=== PATIENT | female | born 1975 | race Caucasian/White ===

== ENCOUNTER 2023-04-19 08:37 | Day surgery (SDC) | payer MEDICAID, SELFPAY ==
--- NOTE | 2023-04-19 08:44 | MR_ITS ---
The [address] [address] Patient Name: AUGUSTINE PINA MRN: [id number] date: 1975 Sex: F Assigned Patient Location: MRI Current Patient Location: MRI Accession/Order Number: [id number] Exam Date: 04/19/2023 10:05 Report Date: 04/19/2023 17:34 At the request of: KEVIN CLINTON Procedure: MR arthrogram hip EXAM: MR arthrogram hip HISTORY: Left Hip Pain COMPARISON: None. TECHNIQUE: Multiplanar, multi sequential MRI sequences were performed following the intra-articular injection of a saline-gadolinium solution. FINDINGS: Contrast fills the hip joint. No visualized fracture, dislocation, subluxation or osseous lesion. The acetabular labrum or articular cartilage of the femoral head and acetabulum exhibit no chondral or osteochondral defect. On the large [id number]-[id number]-riea coronal imaging; the pubic symphysis, sacroiliac joints and right hip joint exhibit no discrete abnormality. No visualized deep pelvic abnormalities. The visualized superficial subcutaneous soft tissues are free of edema, hematoma, mass or cyst. No discrete muscle edema, hematoma, atrophy or fatty infiltration. No gross tendon thickening, tear or edema. No discrete bursal fluid collections. MR/MR arthrogram hip IMPRESSION: No visualized abnormality. Electronically authenticated by: ANU HOOK Date: 04/19/2023 17:34
--- NOTE | 2023-04-19 08:45 | FL_ITS ---
The [address] [address] Patient Name: AUGUSTINE PINA MRN: [id number] date: 1975 Sex: F Assigned Patient Location: MRI Current Patient Location: MRI Accession/Order Number: [id number] Exam Date: 04/19/2023 08:50 Report Date: 04/19/2023 11:23 At the request of: KEVIN CLINTON Procedure: FL arthrogram hip LT EXAMINATION: FL arthrogram hip LT HISTORY: Left Hip Pain COMPARISON: No relevant comparison available. TECHNIQUE: An arthrogram was performed under fluoroscopic guidance using non-ionic contrast material in the usual sterile manner after obtaining informed consent. Standard level fluoroscopic mode of operation utilized. FINDINGS: JOINT: Left hip NEEDLE: 25 gauge, 5.5 spinal needle. MEDICATION: 2cc buffered 1% lidocaine for subcutaneous anesthesia 2cc Omnipaque-240 iodinated contrast to visualize the joint space 40 mg Depo-Medrol and one mL, 3 mL's of 0.5% bupivacaine, 3 cc of sterile saline injected into the joint space. TECHNIQUE: Anterior approach with prior localization of the femoral artery. A single stick was successful in gaining access to the joint space. CLINICAL: The patient had 3 out of 4 pain before the procedure and after the procedure with no change COMPLICATIONS: None. BONES: Mild osteoarthritis with marginal osteophyte formation LOOSE BODIES: None. OTHER: Negative. FL/FL arthrogram hip LT IMPRESSION: Technically successful left hip therapeutic and diagnostic arthrogram Electronically authenticated by: ANU HUDSON Date: 04/19/2023 11:23
[2023-04-19] MEDS: TRIAMCINOLONE ACETONIDE 40 MG/ML VIAL INJ (09:35)
[2023-04-19] MEDS: LIDOCAINE HCL 15 ML, SODIUM BICARBONATE 2 MEQ INJ (09:35)
== END 2023-04-19 10:21 | disposition home or self-care (01) ==
LOC: MRI 08:38
PROVIDERS: Radiology Diagnostic Radiology; PCP Family Medicine; Visit Provider Personal Emergency Response Attendant
DX: M24.152 Other articular cartilage disorders, left hip (principal); M25.552 Pain in left hip
CPT/HCPCS: 27093; 73525; 73722; 77002; A9575; Q9967

== ENCOUNTER 2023-07-18 14:34 | Outpatient (OUT) | payer MEDICAID, SELFPAY ==
--- NOTE | 2023-07-18 | CONS_ITS ---
CONSULTATION DATE: 07/18/2023 TO: Laury Azar M.D. CHIEF COMPLAINT: Includes severe right sided neck pain. HISTORY OF PRESENT ILLNESS: Review of systems, past medical/surgical history were obtained and documented on the health questionnaire and is available upon request. She is a 47-year-old female, reports having had pain for many years. She reports that the pain has progressed to the point it altered her quality of life, level of functioning and at times her sleep pattern. She rates it presently at 5-7/10 pain, sharp in character, which increases with activities such as lifting maneuvers, pushing/pulling maneuvers and cervical extension. She feels most comfortable in the semi-recumbent position. Denies any change in bowel and bladder habits or new sensorimotor change in the lower extremities. She has been on ibuprofen for many years. She currently uses ibuprofen at least 400-600 mg q. 8-12 hours p.r.n., with only moderate reduction in pain symptoms, especially over the last six months. Originally, she had been placed on gabapentin 300 mg daily. She reports that this does improve her symptoms quite significantly, but she reports her pain is still quite severe, alters her quality of life, level of functioning and sleep pattern. EXAMINATION: Notable for patient having no clinical radiculopathy or myelopathy involving her upper extremities. She had severe pain with cervical facet loading maneuvers on the right side at approximately C2-3 and C3-4. It was difficult to evaluate which level it was, secondary to poor landmarks. She had a fair amount of myofascial spasm along the cervical paravertebral muscle as well. IMPRESSION: Our impression is patient with chronic pain secondary to cervical spondylosis, facet joint loading pain clinically. She has failed conservative therapy with nonsteroidal agents, most recently with the addition of gabapentin, and she currently has done physical therapy. Despite this, she still has persistent pain in the above mentioned areas. RECOMMENDATIONS: I recommend adding baclofen to her regimen, 10 mg pills, half a pill to one pill b.i.d. as tolerated. Proceed with a cervical spine film, PA and lateral views. We placed a skin marker over the most painful area. It appears to be at approximately the C2-C3 level. After reviewing the same, we will proceed with a diagnostic medial branch block, most likely at the C2-3 and C3-4 levels under fluoroscopy on the right side. As part of providing excellent, safe, comprehensive care, the following was completed at our patient's visit: 1. A medication reconciliation and review to ensure accurate knowledge of current/active medications, including asking our patients to inform us about any [id number]-zmc-[id number] medications or herbal remedies/nutritional supplements/alternative remedies. 2. A review to specifically ensure our patients have had annual screening for: elevated body mass index (BMI, see intake chart for exact total), tobacco use, screening for depression, and screening for unhealthy alcohol use. When screening is concerning, patients are provided with education and the specific recommendation to discuss the concerning health issue and treatment options with their primary care provider. MARIA ISABEL
== END 2023-07-18 14:35 | disposition home or self-care (01) ==
LOC: PM 14:35
PROVIDERS: PCP Family Medicine; Visit Provider Anesthesiology Pain Medicine
DX: M54.2 Cervicalgia (principal); M47.812 Spondylosis without myelopathy or radiculopathy, cervical region
CPT/HCPCS: 72050; G0463

== ENCOUNTER 2023-07-18 15:45 | Outpatient (OUT) | payer MEDICAID, SELFPAY ==
--- NOTE | 2023-07-18 16:04 | XR_ITS ---
The [place] [id number] Patient Name: AUGUSTINE PINA MRN: [id number] date: 1975 Sex: F Assigned Patient Location: [facility] Current Patient Location: Accession/Order Number: [id number] Exam Date: 07/18/2023 15:56 Report Date: 07/19/2023 07:16 At the request of: IMELDA QUINONES Procedure: XR cervical spine 5V EXAMINATION: XR cervical spine 5V HISTORY: Neck Pain COMPARISON: No relevant comparison available. FINDINGS: BONES: Mild widespread spondylosis and facet osteoarthritis. No visible acute bony abnormality. DISC SPACES: Normal. No significant disc height narrowing, subluxation, or endplate abnormality. PARASPINOUS: Negative. No paraspinous abnormality is seen. OTHER: BB marker indicates the C2 transverse process XR/XR cervical spine 5V IMPRESSION: Mild degenerative changes Electronically authenticated by: ANU HUDSON Date: 07/19/2023 07:16
== END 2023-07-18 15:46 | disposition home or self-care (01) ==
LOC: RAD 15:47
PROVIDERS: PCP Family Medicine; Visit Provider Anesthesiology Pain Medicine
DX: M54.2 Cervicalgia (principal)
CPT/HCPCS: 72050

== ENCOUNTER 2023-08-03 08:43 | Day surgery (SDC) | payer MEDICAID, SELFPAY ==
[2023-08-03 09:06] LABS: Glucometer 109 mg/dL (74-106)
[2023-08-03 09:10] VITALS: BP 153/96; PULSE 77; RESP 16; TEMP 36.7; O2SAT 96
[2023-08-03 09:50] VITALS: BP 142/84; PULSE 72; RESP 18; O2SAT 97
[2023-08-03 09:51] VITALS: BP 138/75; PULSE 74; RESP 18; O2SAT 97
[2023-08-03] MEDS: BUPIVACAINE HCL 0.25% PF 25 MG/10 ML VIAL 3 ML INJ (09:54)
--- OUTSIDE RECORDS SUMMARY | 2023-08-03 10:36 | XMS_ITS | CCD ---
Author Name Unknown Address [id number] [place] [address] Organization [facility] Care Team Providers Care Beef Ribber Name Role Phone LAURY AZAR Primary Care Unavailable CONNER DUVAL Admitting Unavailable CONNER DUVAL Attending Unavailable DHRUV PAZ Referring Unavailable SELF, REFERRED Primary Care Unavailable SELF, REFERRED Referring Unavailable CONNER DUVAL Admitting Unavailable CONNER DUVAL Attending Unavailable Sandoval Solano Unavailable Garcia Sanchez Unavailable MD Laury Azar Primary Care Provider MD Garcia Sanchez Attending Provider Garcia Sanchez Attending Unavailable Garcia Sanchez Admitting Unavailable Laury Azar Primary Care Unavailable Eleuterio Urbina DDS Attending Unavailable ANU WILKERSON Referring Unavailable NILOANU RONQUILLO Attending Unavailable NILOANU RONQUILLO Attending Unavailable KEVIN CLINTON Referring Unavailable CHUY, CONNER Attending Unavailable CONNOR WEBSTER Attending Unavailable LAURY AZAR Referring Unavailable CONNOR WEBSTER Attending Unavailable LAURY AZAR Referring Unavailable CHRIS WHITMORE Attending Unavailable CASANDRA, LAURY F Referring Unavailable CASANDRA LAURY F Attending Unavailable CASANDRA, LAURY F Referring Unavailable CHRIS WHITMORE Attending Unavailable CASANDRA, LAURY F Referring Unavailable Allergies Allergy Classification Reported Allergen(s) Allergy Type Date of Onset Reaction(s) Facility (2 sources) Vancomycin Drug Allergy [place] [employer] Other (1 source) Vancomycin Drug Allergy 11-03-19 [facility] Repository (1 source) Glycopeptides (Antibiotic); Translations: [VANCOMYCIN ANALOGUES] Propensity to adverse reactions to drug (disorder) 02-08-20 [facility] Repository Medications Current Medications Medication Drug Class(es) Dates Sig (Normalized) Sig (Original) acetaminophen 500 mg oral tablet (1 source) Start: 10-24-2018 take 2 tablets by mouth every six hours Acetaminophen (Tylenol Extra Strength) 500 mg Tablet Active 1000 MG PO Q6H October 24, 2018 12:00am Albuterol (2 sources) beta2-Adrenergic Agonist ProAir HFA Active Albuterol Sulfate (Proair Hfa) 90 mcg/actuation HFA aerosol inhaler (1 source) Start: 10-24-2018 Albuterol Sulfate (Proair Hfa) 90 mcg/actuation HFA aerosol inhaler Active 2 PUFF INHALATION As Directed October 24, 2018 12:00am breath-actuated 120 actuat beclomethasone dipropionate 0.08 mg/actuat metered dose inhaler (4 sources) Corticosteroid Start: 10-24-2018 take 1 puff(s) by inhalation twice daily Beclomethasone Dipropionate (Qvar Redihaler) 80 mcg/actuation HFA aerosol breath activated Active 1 PUFF INHALATION Twice daily October 24, 2018 12:00am Start: 10-24-2018 End: 10-24-2018 Beclomethasone Dipropionate (Qvar Redihaler) 80 mcg/actuation HFA aerosol breath activated Discontinued October 24, 2018 12:00am October 24, 2018 1:54pm Qvar 80 MCG Acti ve hydroCHLOROthiazide 25 mg oral tablet (3 sources) Thiazide Diuretic Start: 11-02-2022 take 25 mg by mouth once daily Hydrochlorothiazide Active 25 MG PO Daily November 02, 2022 12:00am take 1 tablet by pritesh th every twenty-four hours hydroCHLOROthiazide 25 MG 1 tablet in th e morning Orally Once a day Active losartan potassium 50 mg oral tablet (1 source) Angiotensin 2 Receptor Trudi Start: 11-02-2022 take 50 mg by mouth once daily Losartan Active 50 MG PO Daily November 02, 2022 12:00am losartin (2 sources) losartin 50 MG A ctive 1 ml medroxyPROGESTERone acetate 150 mg/ml prefilled syringe (3 sources) Progestin Start: 11-02-2022 Medroxyprogesterone Active 150 MG IM As Directed March 22nd, 2023 12:00am Depo-Provera Act gabrielle metFORMIN hydrochloride 500 mg oral tablet (1 source) Biguanide Start: 11-02-2022 take 500 mg by mouth once daily Metformin Active 500 MG PO Daily November 02, 2022 12:00am 24 hr propranolol hydrochloride 80 mg extended release oral capsule (1 source) beta-Adrenergic Trudi Start: 11-02-2022 take 80 mg by mouth once daily Propranolol Active 80 MG PO Daily November 02, 2022 12:00am valACYclovir 500 mg oral tablet (1 source) Herpesvirus Nucleoside Analog DNA Polymerase Inhibitor, Herpes Simplex Virus Nucleoside Analog DNA Polymerase Inhibitor, Herpes Zoster Virus Nucleoside Analog DNA Polymerase Inhibitor Start: 10-24-2018 take 1 tablet by mouth once daily Valacyclovir (Valtrex) 500 mg Tablet Active 500 MG PO Daily October 24, 2018 12:00am 24 hr venlafaxine 75 mg extended release oral capsule (3 sources) Serotonin and Norepinephrine Reuptake Inhibitor Start: 10-24-2018 take 1 capsule by mouth once daily Venlafaxine (Effexor Xr) 75 mg Capsule,Extended Release 24hr Active 75 MG PO Daily October 24, 2018 12:00am Effexor 75 MG QD Active Problems Problem Classification Problem Date Documented Date Episodic/Chronic Bacterial infection; unspecified site (3 sources) History of methicillin resistant Staphylococcus aureus infection; Translations: [Personal history of Methicillin resistant Staphylococcus aureus infection] Onset: 05-20-2021 Resolved: 05-20-2021 Episodic Osteoarthritis (3 sources) Arthritis of knee; Translations: [Unilateral primary osteoarthritis, unspecified knee] Onset: 05-20-2021 Resolved: 05-20-2021 Chronic Other connective tissue disease (2 sources) Psoas tendinitis, left hip; Translations: [Psoas tendinitis, left hip] Onset: 07-10-2023 Episodic Other non-traumatic joint disorders (2 sources) Pain in left hip; Translations: [Pain in left hip] Onset: 07-10-2023 Episodic Unclassified (1 source) Encounter for screening for malignant neoplasm of colon; Translations: [Encounter for screening for malignant neoplasm of colon] Onset: 11-02-2022 Results Test Name Value Interpretation Reference Range Facility 36on 07-24-2023 36 Lvm that pt does not need a prior auth. She just needs to schedule appt with Dr. Fuentes for injection Normal [facility] Follow-Upon 07-10-2023 Follow-Up [id number] Kellie Mann ie 1975 F Date Provider Department [place] 07/10/2023 ANU GOTTI MP ORTHO MPORTHO No family history on file Level of Service:57546 MO OFFICE/OUTPATIENT ESTABLISHED LOW MDM 20-29 MIN (GC) Reason for Visit and Comments: Pain [136] Normal [facility] XR CERVICAL SPINE 2-3 VIEWSo n 06-26-2023 XR CERVICAL SPINE 2-3 VIEWS CLINICAL HISTORY: neck pain COMPARISON: NONE. FINDINGS: There is no acute fracture or subluxation. There is no loss of vertebral body height. There is preservation of the lordotic curvature of the cervical spine. There is mild intervertebral disc space narrowing at each level. There are anterior osteophytes from C4-C7. The prevertebral tissues are unremarkable. The airway is patent IMPRESSION: There are no acute osseous changes. ELECTRONICALLY SIGNED BY: Luis Preciado MD Normal Not Available Office [place]iton 05-29-2023 Follow-up visit [id number] Kellie Mann 1975 F Date Provider Department [place] 05/29/2023 ANU GOTTI MP ORTHO MPORTHO No family history on file Level of Service:64700 MO OFFICE/OUTPATIENT ESTABLISHED MOD MDM 30-39 MIN (25,GC) Reason for Visit and Comments: Pain [136] Normal [facility] MRI Shoulder w/o Lefton 05-1 MRI Shoulder w/o Left HISTORY: Left shou lder pain. Recent lifting injury. TECHNIQUE: Routine non-contrast MRI of the shoulder , left side COMPARISON: Radiographs 12/07/2022. RESULT: Rotator Cuff Tendons: There appears to be full-thickness tearing involving majority of subscapularis, with possible few intact fibers, with slight medial retraction of the torn fibers, with underlying tendinosis. Mild to moderate tendinosis of supraspinatus and infraspinatus, without tear, with reactive cystic change at the infraspinatus insertion. Teres minor appears intact. Long Head Biceps Tendon: Medial subluxation with intra-articular tendinosis and/or partial tearing, without complete tear. Muscle: Muscle bulk and signal intensity are within normal limits. Labrum: Fraying/tearing, especially superiorly. Bones and Marrow: No evidence of fracture or bone marrow replacing process. Glenohumeral Joint: Osteophytes without measurable full-thickness chondral defect. No joint effusion. Acromioclavicular Joint: Mild degenerative changes. Other: No other significant abnormality. IMPRESSION: Full-thickness rotator cuff tearing involving subscapularis. Medial subluxation with intra-articular tendinosis and/or partial tearing of the long head biceps tendon, without complete tear. Report reported and signed by Stevie Holm on 12/26/2022 1544 Normal [facility] Specialist Glucose Glucometer (BldC) [M ass/Vol]Ordered By: Garcia Sanchez on 11-02-2022 Glucose [Mass/Vol] 104 mg/dL [facility] Comment on above: Random Glucose Refer ence Range is dependent on time and content of last meal. Glucose of more than 200 mg/dL in a nonstressed, ambulatory subject supports the diagnosis of Diabetes Mellitus. Glucose Poct Glucometerson 0 11-02-2022 Commemt1 Glu2: Cleaned Meter [facility] Comment on above: Result Comment: PERF ORMED BY: [facility] [address] [place] [address] PATHOLOGIST GASOLINE DRAGLINE OPERATOR VICENTE SINGH M.D. Performed By: #### G LULS #### Point of Care testing , Glucose [Mass/Vol] 104 mg/dL Normal [facility] Comment on above: Result Comment: [place] om Glucose Reference Range is dependent on time and content of last meal. Glucose of more than 200 mg/dL in a nonstressed, ambulatory subject supports the diagnosis of Diabetes Mellitus. Performed By: #### G LULS #### Point of Care testing , HCG ( test) IA.rapi d Ql (U)Ordered By: Garcia Sanchez on 11-02-2022 HCG ( test) Ql (U) Negative [facility] HCG,Urineon 11-02-2022 Beta HCG ( test) Ql (U) Negative Normal [facility] Comment on above: Result Comment: PERF ORMED BY: [facility] [address] [place] [address] PATHOLOGIST GASOLINE DRAGLINE OPERATOR VICENTE SINGH M.D. Performed By: #### U HCG #### [facility] [address] [id number] [facility] No Panel InformationOrdered By: Garcia Sanchez on 11-02-2022 Bedside Glucose Comment Glu2: cleaned meter [facility] Follow-Upon 09-14-2022 Follow-Up [id number] Kellie Mann ie 1975 F Date Provider Department Center 09/14/2022 CONNER SU MP ORTHO MPORTHO No family history on file Level of Service:57038 MO OFFICE/OUTPATIENT ESTABLISHED SF MDM 10-19 MIN Reason for Visit and Comments: Follow-up [213320] Normal [facility] Diagnostic Mammogram, Bilate ral w/Ananth (3D)on 07-12-2022 Diagnostic Mammogram, Bilateral w/Ananth (3D) COMPARISON: Dating back to July 05, 2022. TECHNIQUE: 2D and 3D Tomosynthesis of the right and left breasts was performed. FINDINGS: On these additional views no underlying nodule, mass, suspicious calcifications or distortion is seen. IMPRESSION: BI-RADS 3- Probably Benign. Short term interval follow up. Recommend follow up bilateral mammography in 6 months. Board Certified Radiologist. Accredited by the ACR and FDA. MAMMOGRAPHY IS VERY IMPORTANT TO YOUR HEALTH. THE CURRENT [employer] GUIDELINES RECOMMENDS ANNUAL MAMMOGRAPHY BEGINNING AT AGE 40 THIS FACILITY USES A REMINDER SYSTEM TO ENSURE ALL PATIENTS RECEIVE REMINDER NOTIFICATIONS AT THE APPROPRIATE TIME BASED ON THE RECOMMENDATIONS OF THIS EXAM. Report reported and signed by Juaquin Bullock on 07/12/2022 1546 Normal [facility] Specialist US Breast Limited, Lefton US Breast Limited, Left Please see right breast ultrasound report. Report reported and signed by Juaquin Bullock on 07/12/2022 1546 Normal [facility] SCREENING MAMMOGRAM W/ANANTH, BILATERAL*on 07-05-2022 SCREENING MAMMOGRAM W/ANANTH, BILATERAL* COMPARISON: November 03, 2020, November 05, 2018 TECHNIQUE: 2D and 3D Tomosynthesis of the right and left breasts was performed. FINDINGS: Breast composition demonstrates scattered fibroglandular densities. Each breast contains a new periareolar 6 mm asymmetry: Left breast MLO projection 4 cm from the nipple. Right breast CC projection outer periareolar region 4 cm from the nipple. No suspicious microcalcifications or distortion. No significant axillary lymphadenoapthy. IMPRESSION: BIRADS 0: Additional imaging evaluation needed. Recommend bilateral breast ultrasound periareolar regions, spot compression views CC and MLO projections if benign cyst formation does not account for these findings. COMMENT: Asymmetry: Visible on only one projection. Asymmetries that wood turner to be summation artifact are benign (BI-RADS 2). The BI-RADS [place] offers guidance regarding the other categories of asymmetries. Focal Asymmetry: Visible on two projections, involves less than one quadrant, lacks convex-outwards borders or is interspersed with fat. A solitary focal asymmetry (without architectural distortion, calcification, or underlying mass identified on diagnostic mammography and ultrasound) is assessed as BI-RADS 3 (likely benign). Developing Asymmetry: Focal asymmetry that is new, larger, or more conspicuous than on prior examinations. A developing asymmetry, unless shown to be characteristically benign such as a cyst on ultrasound, is assessed BI-RADS 4 (suspicious). An exception would be if there is a clear benign explanation, such as recent surgery, trauma, or infection at that site. Global Asymmetry: Visible on two projections, involves more than one quadrant. Global asymmetry, in the absence of palpable correlate, is assessed BI-RADS 2 (benign). Board Certified Radiologist. Accredited by the ACR and FDA. MAMMOGRAPHY IS VERY IMPORTANT TO YOUR HEALTH. THE CURRENT [employer] AND [employer]PREHENSIVE CANC[employer] NETWORK GUIDELINES RECOMMENDS ANNUAL MAMMOGRAPHY BEGINNING AT AGE 40 THIS FACILITY USES A REMINDER SYSTEM TO ENSURE ALL PATIENTS RECEIVE REMINDER NOTIFICATIONS AT THE APPROPRIATE TIME BASED ON THE RECOMMENDATIONS OF THIS EXAM. Report reported and signed by Juaquin Bullock on 07/05/2022 1525 Normal [facility] Multi Disciplined Language Analyst Operative Reporton 2 Operative Report MR#: [id number] S [facility] Pt. Name: Hilda Mann Room #: 0C Discharge Date: Birthdate: 1975 OPERATIVE REPORT DATE OF SURGERY: 12/16/2021 SURGEON: Conner Duval M.D. PREOPERATIVE DIAGNOSES: 1. Carpal tunnel syndrome, left hand. 2. Cubital tunnel syndrome, left elbow. POSTOPERATIVE DIAGNOSES: 1. Carpal tunnel syndrome, left hand. 2. Cubital tunnel syndrome, left elbow. PROCEDURES: 1. Carpal tunnel release, left hand. 2. Decompression of ulnar nerve, left elbow. LAMINATION SPINNER: Juan Quintanilla M.D. ANESTHESIA: General. INDICATION FOR SURGERY: The patient is a 46-year-old female, whom we saw in our [facility] with complaints of night pain and numbness in her left arm. Her examination and workup were consistent with that of both carpal and cubital tunnel syndromes. She is felt to be a candidate for surgical treatment because of persistent and worsening problems. She was brought to the operating room today for that purpose. The risks and benefits were explained prior to surgery, and with good understanding, it is agreed to proceed. NARRATION: The patient was brought to the operating room and placed on the table in the supine position. A regional anesthetic had been administered, but there was concerns that was not working adequately. So, a general anesthetic was induced. A tourniquet was placed around the proximal left arm. She was given preoperative antibiotics. The left upper extremity was prepped and draped out in a sterile fashion. To begin the procedure, after standard time-out, the arm was exsanguinated with an Esmarch bandage, and the tourniquet was inflated to 250 mmHg. We started with the carpal tunnel. A 2.5 cm incision was made on the palm between the thenar and hypothenar regions. Sharp dissection was carried out through the subcutaneous tissue. Superficial blood vessels were cauterized with the Bovie. Once that was done, the skin edges were retracted with 2 Roseanne rakes. The palmar fascia is split in line with our skin incision. That brought me down to the transverse carpal ligament. Where I could clearly see the ligament, it was opened up in a gradual fashion using a knife blade working from distal to proximal. Switching over to a tenotomy scissor, we bluntly spread through the most distal end of the ligament until that was completely free. The proximal end was undermined and split sharply with a scissors. I could use the tip of the scissors to palpate the release to make sure that it was complete. Once satisfied with that, the median nerve was bluntly dissected out. There was no gross abnormality. This wound was irrigated with normal saline solution, and the skin was closed with 5-0 Novafil suture. We then turned our attention to the elbow. The arm was abducted and externally rotated. The elbow was placed on a few blue towels to expose the medial aspect of the elbow. We started by making a curvilinear incision that was about 3.5 to 4 cm in length. This was right over the course of the ulnar nerve through the cubital tunnel. Blunt dissection was carried out through the subcutaneous tissue. Superficial blood vessels are cauterized with the Bovie once again. The ulnar nerve was palpable just above and behind the medial epicondyle. The nerve was exposed at that level. We then split the brachial fascia proximally as far as we safely could using an [employer]-Bridgman retractor to expose the proximal end and looked the proximal skin edge. The nerve was then released through the cubital tunnel releasing Magana's ligament and the fascia over the cubital tunnel. The nerve was free distally as the FCU fascias, both superficial and deep were split. Again, we used an [employer]-Bridgman retractor to lift the distal end of the skin to see better. Once the nerve was decompressed, we brought the arm to a full range of motion several times. The nerve was stable within the cubital groove. Seeing that the nerve was stable, we elected to leave it as a simple decompression. The wound was irrigated with normal saline solution, and the skin was closed with buried 3-0 Vicryl in the subcutaneous tissue and a running subcuticular 4-0 Biosyn. A sterile dressing of benzoin and Steri-Strips on the elbow, Xeroform gauze on the palm, 4 x 4 fluffs, Floridalma, and an Adal bandage was applied. The tourniquet was released, and the drapes were removed. She was awoken from anesthesia and extubated. Her arm was placed into a sling. She was brought to the recovery area in stable condition, having tolerated the procedure well. Electronically Signed by: Conner Duval M.D. 12/20/2021 08:57 A Conner Duval M.D. Date Dict: 12/16/2021/11:05 Magen/Conner Duval M.D. Date Trans: 12/16/2021 06:56 P/arvind [id number] cc: Laury Azar M.D. [facility] [address] Dhruv Paz, DO [address] P. OAnil Levy (more content not included)... Normal [facility] POC GLUCOSE LABon 12-16-2021 Glucose [Mass/Vol] 156 mg/dL High 70-100 [facility] Comment on above: Performed By: #### [id number] #### [facility] [address] [place] [address], [facility] POC URINE PREGNANCYon 2021 Beta HCG ( test) Ql (U) Negative Normal NEGATIVE [facility] Comment on above: Performed By: #### [id number] #### [facility] [address] [place] [address], [facility] Vital Signs Date Time Vital Sign Value Performing Clinician Facility 11-02-2022 09:58-0400 Diastolic blood pressure 102 mm[Hg] MD Laury Azar Work Phone: [facility] 11-02-2022 09:58-0400 Heart rate 71 /min MD Laury Azar Work Phone: [facility] 11-02-2022 09:58-0400 Respiratory rate 16 /min MD Laury Azar Work Phone: [facility] 11-02-2022 09:58-0400 SaO2% (BldA) [Mass fraction] 100 % MD Laury Azar Work Phone: [facility] 11-02-2022 09:58-0400 Systolic blood pressure 161 mm[Hg] MD Laury Azar Work Phone: [facility] 11-02-2022 08:27-0400 Body height 165.1 cm MD Laury Azar Work Phone: [facility] 11-02-2022 08:27-0400 Body weight 95.25 kg MD Laury Azar Work Phone: [facility] 05-20-2021 15:45-0400 Body height 165.1 cm Sandoval Solano Other [facility] Other 05-20-2021 15:45-0400 Body mass index (BMI) [Ratio] 38.94 kg/m2 Sandoval Solano Other [facility] Other 05-20-2021 15:45-0400 Body temperature 97.9 [degF] Sandoval Solano Other [facility] Other 05-20-2021 15:45-0400 Body weight 106.14 kg Sandoval Solano Other [facility] Other 05-20-2021 15:45-0400 Diastolic blood pressure 85 mm[Hg] Sandoval Solano Other [facility] Other 05-20-2021 15:45-0400 Systolic blood pressure 127 mm[Hg] Sanodval Solano Other [facility] Other Encounters Encounter Date Encounter Type Care Provider Facility Start: 07-27-2023 End: 07-27-2023 ambulatory CHRIS WHITMORE Not Available Start: 07-20-2023 End: 07-20-2023 ambulatory CHRIS WHITMORE Not Available Start: 07-18-2023 End: 07-18-2023 ambulatory CONNOR J ELEANOR Not Available Start: 07-14-2023 End: 07-14-2023 ambulatory CONNOR J ELEANOR Not Available Start: 07-10-2023 End: 07-10-2023 ambulatory ANU [facility] Start: 06-26-2023 End: 06-27-2023 ambulatory LAURY AZAR Not Available Start: 06-21-2023 End: 06-22-2023 ambulatory ANU [facility] Start: 05-29-2023 ambulatory ANU [facility] Start: 01-25-2023 ambulatory Eleuterio Urbina DDS [facility] Start: 11-02-2022 End: 11-02-2022 ambulatory Garcia Sanchez Facility:[facility] Start: 11-02-2022 End: 11-02-2022 Admission to same day surgery center MD Laury Azar Work Phone: [facility] Work Phone: Start: 11-02-2022 End: 11-02-2022 ambulatory MD Laury Azar Work Phone: [facility] Work Phone: Start: 09-14-2022 ambulatory CONNER DUVAL [facility] Start: 07-05-2022 End: 07-05-2022 ambulatory Garcia Sanchez Other [facility] Other Start: 07-05-2022 Telephone encounter Garcia CAPUTO G Lining Mechanic Start: 12-16-2021 End: 12-17-2021 ambulatory LAURY AZAR Facility:[facility] Start: 10-25-2021 End: 10-30-2021 ambulatory REFERRED SELF Facility:[facility] Start: 05-20-2021 Office outpatient vi sit 25 minutes Sandoval SILVA Infectious Disease Procedures Date Procedure Procedure Detail Performing Clinician Start: 11-02-2022 Colonoscopy MD Laury resendez Work Phone: Start: 09-14-2022 Follow-up visit Follow-up CONNER DUVAL Plan of Treatment Date Care Activity Detail Author Start: 11-02-2022 [facility] Payers Date Payer Category Payer Self-pay [id number] 2022 Medicaid [id number] 1975 Unknown [id number] 2.16.8 [id number] 1975 Unknown [id number] 2.16.8 [id number] 1975 Unknown [id number] 2.16.840 .[id number] 1975 Unknown [id number] 2.16.840 .[id number] 1975 Unknown [id number] 2.16.840 .[id number] 1975 Unknown [id number] 2.16.840 .[id number] 1975 Unknown [id number] 2.16.840 .[id number] 1975 Unknown [id number] 2.16.840 .[id number] Unknown [id number] Unknown [place] [id number] Unknown [id number] 2.16.8 [id number] Social History Date Type Detail Facility Unknown if ever smoked [facility] Other Sex Assigned At Sex Assigned [facility] Other Start: 11-02-2022 Tobacco smoking status NHIS Never smoked tobacco (finding) [facility] Start: 1975 Sex Assigned At Female F [facility] Goals Date Patient Goal Desired Activity /State Clinical Notes 05-20-2021 to 07-10-2023 Note Date & Type Note Facility 07-10-2023 Note Attestation signed by Anu Wilkerson MD at 07/10/2023 2:26 PM I personally saw and examined the patient on the same date of service as resident/fellow . I discussed the findings and therapeutic plan with the resident/fellow . I agree with the documentation, except for any edits/updates below. Teaching Physician's Revisions: No revisions Kaity only had 25% relief with the left hip psoas tendon injection. On my reading of the MRI, she has a labral tear. The radiologist disagrees. I would like to then perform a tie breaker with a diagnostic lidocaine injection. We will refer to Dr. Fuentes for this Subjective Chief complaint: Chief Complaint Patient presents with Left Hip - Pain 07/10/23 Patient states in the interim, the injection given to her left psoas tendon sheath at the last visit did not give significant movement, only 25% improvement that lasted less than 2 days. Patient continues have popping and clicking sensation in the left hip with pain localized to the groin worse with stairs and prolonged activity. This been a persistent issue for greater than 6 months. Prior MR arthrogram of the left hip was read by the radiologist to be negative, however on our independent review of the MR arthrogram, we did believe there was a labrum tear that is present. 05/29/23 Hilda Mann is a 47 y.o. year old female presenting for evaluation of left hip pain for approximately 6-10 months. Patient does not endorse traumatic onset of pain. Sensation of popping in the hip that is debilitating. Denies numbness, tingling, and weakness. Previous Treatments: physical therapy and arthrogram w injection Injection was initially not very helpful but over the next week provided some pain relief. ROS: Denies fevers, chills, and other constitutional symptoms. Denies shortness of breath. Patient History Past Surgical History: Procedure Laterality Date KNEE ARTHROPLASTY MR SHOULDER ARTHROGRAM RIGHT W FL GUIDED INJECTION Right 02/12/2018 MR SHOULDER ARTHROGRAM RIGHT W FL GUIDED INJECTION 02/12/2018 History reviewed. No pertinent past medical history. Objective General: There is no height or weight on file to calculate BMI. There were no vitals filed for this visit. No acute distress, comfortable Respiratory: Unlabored breathing with normal rate, no cough Cardiovascular: Warm well perfused extremities Psych: Appropriate mood behavior Left Hip: Inspection- no ecchymosis, no edema Tender to palpation over groin NTTP GT bursa (+) FADIR Hip ROM: Internal Rotation 30??? External Rotation 50??? Flexion 120??? Strength: Hip Flexion 5/5 Hip Extension 5/5 Hip Abduction 5/5 Hip Adduction 5/5 Knee Flexion 5/5 Knee Extension 5/5 Sensation: intact over superficial peroneal, deep peroneal and tibial nerve distributions Hip Special Tests: Log Roll - painful and FADIR - positive Pain w resisted hip flexion Imaging: MRI arthrogram L hip On our review of MRI we feel there is a labral tear Assessment/Plan Hilda Mann is a 47 y.o. year old female with Psoas tendinitis of left side Pain of left hip -Based on exam and our independent review of the MRI, we have concern for a labral tear that is causing patient persistent symptoms despite prior nonoperative management. Thus, we will send patient to Dr. Andrade for consideration of a LEFT hip intra-articular lidocaine injection under fluoroscopy for diagnostic purposes to confirm the pain is coming from the joint. -If her injection does relieve her pain, will need to proceed with a peer to peer to get insurance approval for a LEFT hip arthroscopy and labral repair. -RTC after injection done to see how patient is doing. Francis Allen MD Orthopaedic Surgery, PGY-V 07/10/2023 By using the attestations below, the signing clinician agrees that I have read and verify that the documentation has been personally reviewed by me and ensure that the documentation accurately reflects the encounter. GC: I personally saw this patient on the day of the encounter, performed the joiner portion(s) of the service and participated in the management and confirm the resident's documentation. Please note there may be an additional personal documentation from me. [facility] 05-29-2023 Note Attestation signed by Anu Wilkerson MD at 05/29/2023 1:52 PM I personally saw and examined the patient on the same date of service as resident/fellow . I discussed the findings and therapeutic plan with the resident/fellow . I agree with the documentation, except for any edits/updates below. Teaching Physician's Revisions: No revisions Kaity has signs and symptoms of left hip psoas tendinitis. My recommendation would be for corticosteroids and physical therapy for 6 weeks. I will see her back in 6 weeks time for repeat evaluation. Of note I reviewed her MRI of the left hip and disagree with the radiologist. I do think she has an acetabular labral tear. She also had a diagnostic injection which gave her 2 weeks of relief. That said I still want to see if we can get her better with the psoas tendon and turn her hip from a to problem hip 201 problem hip. It may be that once her psoas tendinitis resolves then her labral tear might not be symptomatic enough for surgery by itself. I will see in 6 weeks time Subjective Chief complaint: Chief Complaint Patient presents with Left Hip - Pain 05/29/23 Hilda Mann is a 47 y.o. year old female presenting for evaluation of left hip pain for approximately 6-10 months. Patient does not endorse traumatic onset of pain. Sensation of popping in the hip that is debilitating. Denies numbness, tingling, and weakness. Previous Treatments: physical therapy and arthrogram w injection Injection was initially not very helpful but over the next week provided some pain relief. ROS: Denies fevers, chills, and other constitutional symptoms. Denies shortness of breath. Patient History Past Surgical History: Procedure Laterality Date KNEE ARTHROPLASTY MR SHOULDER ARTHROGRAM RIGHT W FL GUIDED INJECTION Right 02/12/2018 MR SHOULDER ARTHROGRAM RIGHT W FL GUIDED INJECTION 02/12/2018 History reviewed. No pertinent past medical history. Objective General: There is no height or weight on file to calculate BMI. There were no vitals filed for this visit. No acute distress, comfortable Respiratory: Unlabored breathing with normal rate, no cough Cardiovascular: Warm well perfused extremities Psych: Appropriate mood behavior Left Hip: Inspection- no ecchymosis, no edema Tender to palpation over groin NTTP GT bursa Hip ROM: Internal Rotation 30??? External Rotation 50??? Flexion 120??? Strength: Hip Flexion 5/5 Hip Extension 5/5 Hip Abduction 5/5 Hip Adduction 5/5 Knee Flexion 5/5 Knee Extension 5/5 Sensation: intact over superficial peroneal, deep peroneal and tibial nerve distributions Hip Special Tests: Log Roll - not painful, NORBERTO - positive, and FADIR - negative Pain w resisted hip flexion Imaging: MRI arthrogram L hip On our review of MRI we feel there is a labral tear Assessment/Plan Hilda Mann is a 47 y.o. year old female with Psoas tendinitis of left side Pain of left hip Discussed the nature of the disease as well as treatment options including conservative vs surgical interventions Conservative interventions including: physical therapy, NSAIDs, activity modification, steroid injections Surgical interventions including: arthroscopic repair or reconstruction of affected structures -CSI today into psoas tendon -PT -Return to clinic in 6 weeks -Will discuss surgery if not improved for labral repair Joseph Campoverde MD PGY-[address] [facility] By using the attestations below, the signing clinician agrees that I have read and verify that the documentation has been personally reviewed by me and ensure that the documentation accurately reflects the encounter. GC: I personally saw this patient on the day of the encounter, performed the joiner portion(s) of the service and participated in the management and confirm the resident's documentation. Please note there may be an additional personal documentation from me. [facility] 05-29-2023 Note Subjective Chief complaint: Chief Complaint Patient presents with ??? Left Hip - Pain 05/29/23 Hilda Mann is a 47 y.o. year old female presenting for evaluation of left hip pain for approximately 6-10 months. Patient does not endorse traumatic onset of pain. Sensation of popping in the hip that is debilitating. Denies numbness, tingling, and weakness. Previous Treatments: physical therapy and arthrogram w injection Injection was initially not very helpful but over the next week provided some pain relief. ROS: Denies fevers, chills, and other constitutional symptoms. Denies shortness of breath. Patient History Past Surgical History: Procedure Laterality Date ??? KNEE ARTHROPLASTY ??? MR SHOULDER ARTHROGRAM RIGHT W FL GUIDED INJECTION Right 02/12/2018 MR SHOULDER ARTHROGRAM RIGHT W FL GUIDED INJECTION 02/12/2018 History reviewed. No pertinent past medical history. Objective General: There is no height or weight on file to calculate BMI. There were no vitals filed for this visit. No acute distress, comfortable Respiratory: Unlabored breathing with normal rate, no cough Cardiovascular: Warm well perfused extremities Psych: Appropriate mood behavior Left Hip: Inspection- no ecchymosis, no edema Tender to palpation over groin NTTP GT bursa Hip ROM: Internal Rotation 30??? External Rotation 50??? Flexion 120??? Strength: Hip Flexion 5/5 Hip Extension 5/5 Hip Abduction 5/5 Hip Adduction 5/5 Knee Flexion 5/5 Knee Extension 5/5 Sensation: intact over superficial peroneal, deep peroneal and tibial nerve distributions Hip Special Tests: Log Roll - not painful, NORBERTO - positive, and FADIR - negative Pain w resisted hip flexion Imaging: MRI arthrogram L hip On our review of MRI we feel there is a labral tear Assessment/Plan Hilda Mann is a 47 y.o. year old female with Psoas tendinitis of left side Pain of left hip Discussed the nature of the disease as well as treatment options including conservative vs surgical interventions Conservative interventions including: physical therapy, NSAIDs, activity modification, steroid injections Surgical interventions including: arthroscopic repair or reconstruction of affected structures -CSI today into psoas tendon -PT -Return to clinic in 6 weeks -Will discuss surgery if not improved for labral repair Joseph Campoverde MD PGY-[address] Orthopedic [address] [facility] By using the attestations below, the signing clinician agrees that I have read and verify that the documentation has been personally reviewed by me and ensure that the documentation accurately reflects the encounter. GC: I personally saw this patient on the day of the encounter, performed the joiner portion(s) of the service and participated in the management and confirm the resident's documentation. Please note there may be an additional personal documentation from me. Large Joint: L iliopsoas bursa on 05/29/2023 1:52 PM Indications: pain Details: 21 G needle, anterior approach Medications: 4 mL lidocaine 10 mg/mL (1 %); 20 mg triamcinolone acetonide 10 mg/mL Procedure, treatment alternatives, risks and benefits explained, specific risks discussed. Consent was given by the patient. Patient was prepped and draped in the usual sterile fashion. [facility] 11-02-2022 Procedure note [facility] 09-14-2022 Note Orthopedic Surgery Subjective Follow-up of the Left Hand 09/14/22 Hilda Mann is a 46 y.o. female presenting to the clinic for 8 month follow up of left carpal tunnel and cubital tunnel release surgery. At last visit, her symptoms were slowly improving Today she reports continuous, albeit slow, improvement of her cubital tunnel symptoms. She is now able to wash dishes and completely adduct her fingers. Review of Systems unremarkable aside from what is noted in HPI Patient History Past Surgical History: Procedure Laterality Date KNEE ARTHROPLASTY No past medical history on file. Objective General: There is no height or weight on file to calculate BMI. No acute distress, comfortable Respiratory: Unlabored breathing with normal rate, no cough Cardiovascular: Warm well perfused extremities Psych: Appropriate mood behavior Physical Exam: Left Hand: Incision well healed. No erythema, swelling, or deformity. Decreased sensation along the small finger and ring finger when compared to the right. Sensation intact in the thumb, index, and long finger. Cubital tunnel tinel's sign positive. Assessment/Plan Hilda Mann is a 46 y.o. year old female presenting to the clinic today for 8 month follow up after carpal tunnel and cubital tunnel release surgery. Her carpal tunnel symptoms have resolved. She is showing slow and continuous improvement of her cubital tunnel symptoms. Plan Follow up as needed. Velasquez Frost, MS4 As the teaching physician, I have personally performed or re-performed the history of present illness, physical exam and medical decision-making activities of the encounter and verified the medical student's documentation. I made pertinent changes as necessary to ensure accurate documentation. Additional Comments: She continues to improve and is back to normal daily activities. We will see her back as needed. [facility] 07-12-2022 Note FINDINGS: Sonographic evaluation of both breasts demonstrates no worrisome cystic or solid mass lesions. Reference is made to the same day mammogram and recent mammogram of July 05, 2022. IMPRESSION: BI-RADS 3- Probably Benign. Short term interval follow up. Recommend follow up bilateral mammography in 6 months. Report reported and signed by Juaquin Bullock on 07/12/2022 1545 [facility] [employer] Language [employer]st 05-20-2021 Evaluation note Encounter Date Diagnosis Assessment Notes May, History of MRSA infection (ICD-10 - Z86.14) May, Arthritis of knee (ICD-10 - M17.10) [facility] Other Evaluation noteNo assessment information available [facility] Work Phone: History and physical note Author Garcia Sanchez [facility] November 02, 2022 9:14am Note Date/Time November 02, 2022 9:1 4am [facility] [address] [place] [address] Gastroenterology H&P Signed Patient: Hilda Mann MR#: [id number] : 1975 Acct:[id number] Age/Sex: 47 / F Adm Date: 3 Loc: Room: Type: [facility] Attending Dr: Garcia Sanchez MD Copies to: MD Laury Benavides MD~ Date of Service: 11/02/2022 HISTORY & PHYSICAL: Patient's history with special attention to the cardiovascular, pulmonary systems and the current problem was reviewed with the patient immediately prior to the procedure. Present medications and doses reviewed in the EMR. Allergies and pertinent laboratory tests were also reviewedat this time in the EMR. The physical examination, as below, was then performed. Indication, assessment and HPI: 47-year-old female presents for surveillance colonoscopy, history of colon polyp Family history of GI malignancy? Mother and maternal grandmother with a historyof colorectal cancer PHYSICAL EXAMINATION Mouth and Pharynx : Moist mucus membranes, normal dentition Cardiac: Regular rate, regular rhythm Pulmonary: Clear to auscultation bilaterally, no wheezing Neurological: Alert and oriented x3, no focal deficits noted Abdomen: Abdomen soft, non-tender REVIEW OF SYSTEMS Constitutional: Denies malaise, fevers Cardiovascular: Denies chest pain, palpitations Respiratory: Denies shortness of breath, wheezing Gastrointestinal: Per HPI Genitourinary: Denies dysuria, polyuria Musculoskeletal: Denies joint swelling, joint stiffness Neurological: Denies numbness, tingling Integumentary: Denies rashes, skin lesions Endocrine: Denies fatigue, weight loss Written informed consent obtained from the patient. Risks (including but not limited to perforation, infection, bloating, bleeding, need for emergent surgeryand loss of life), benefits and alternatives explained and questions answered. The patient verbalized understanding. Based on history patient is an appropriate candidate for the procedure. Garcia Sanchez MD Documented By: Garcia Sanchez MD 11/02/22913 Signed By: <Electronically signed by Garcia Sanchez MD> 11/02/22913 [facility] Work Phone: History general Narrative - Reported* Type Description Date Medical History MRSA Medical History HTN Surgical History BILATERAL KNEES Surgical History C SECTION Surgical History BILATERAL FEET Surgical History R [facility] Other Hospital Discharge instructions Additional Instructions DISCHARGE INSTRUCTIONS FOR COLONOSCOPY WHAT TO EXPECT: - You may feel full, gassy or cramping after your procedure. In some cases, this may be from a few hours to a day. Walking may help relieve the discomfort. - If you have polyp(s) removed you may note some minor bloody discharge after your first bowel movements. - You should begin to recover from anesthesia within 1 hour of the procedure, however may feel groggy for the next 24 hours. DO's AND DON'Ts: - Call your doctor right away if you have a hard abdomen, severe pain, are passing lots of bright red blood or clots. - Call your doctor if you develop any rashes, hives or difficulty breathing. - Let your doctor know if you have not had a bowel movement by 3 days after your procedure. - If you take 81 mg aspirin for your heart it is safe to resume this medication. - If you take other blood thinner medications your doctor will instruct you when these can safely be resumed. - Do NOT drive for 24 hours. - Do NOT operate machinery such as power tools, lawn mowers, snow blowers, sewing machines, etc. for 24 hours. - Avoid alcoholic beverages and drugs for allergies, nerves, or sleep. - Do NOT stay alone. Do NOT leave your child unattended. - Do NOT make important personal or business decisions or sign any legal documents. - Eat solid foods and drink liquids in smaller amounts than usual until normal appetite returns. If you should experience an upset stomach, liquids high in sugar content (soda, Alverto-Aid, non-acid juices) are recommended. - You can resume normal activities tomorrow. FOLLOW UP & RECOMMENDATIONS: -Follow-up with Dr. Sanchez as needed -Notify the doctor if you have any problems. -Repeat colonoscopy in 5 years because of your family history. You should never go longer than 5 years without a colonoscopy. -Follow up with PCP. -Office number [phone].[facility] Work Phone: Summary Purpose Family History No Family History Records Found Relationship Condition Age at Onset Recorded Date/T giacomo Not Specified Malignant neoplasm of uterus Unknown Malignant neoplasm of colon Unknown Malignant neoplasm of throat Unknown grandparent Malignant neoplasm of uterus Unknown Advance Directives No Advanced Directives Records Found Advance Directive Response Recorded Date/ Time Advance Directives No October 24, 2 019 12:54pm Chief Complaint and Reason for Visit Chief Complaint Polyp of Colon Additional Source Comments INFORMATION SOURCE (unrecogn ized section and content) DATE CREATED AUTHOR 12/22/2021 [facility] DATE CREATED AUTHOR AUTHOR'S ORGANIZ ATION 11/11/2022 [facility] DATE CREATED AUTHOR AUTHOR'S ORGANIZ ATION 12/27/2022 [facility] dical Specialist DATE CREATED AUTHOR AUTHOR'S ORGANIZ ATION 03/18/2023 [facility] DATE CREATED AUTHOR AUTHOR'S ORGANIZ ATION 07/26/2023 [facility] DATE CREATED AUTHOR AUTHOR'S ORGANIZ ATION 07/29/2023 [facility] dical Specialists EPIC REASON FOR VISIT (unrecogniz ed section and content) NEW CONSULT, HX OF MRSA, L T KA NEEDS PRE -OP CLEARANCEMAIL PPW Care Teams (unrecognized sec tion and content) Team Status: Active Member Role Status Dates Laury Azar MD Primary Care Provider Active Team Status: Inactive Member Role Status Dates Laury Azar MD Primary Care Provider Active Garcia Sanchez MD Attending Provider Active FOR RECORDS PERTAINING TO PATIENTS WHO ARE OR HAVE BEEN ENROLLED IN A CHEMICAL DEPENDENCY/SUBSTANCEABUSE PROGRAM, SOME INFORMATION MAY BE OMITTED. This clinical summary was aggregated from multiple sources. Caution should be exercised in using it in the provision of clinical care. This summary normalizes information from multiple sources, and as a consequence, information in this document may materially change the coding, format and clinical context of patient data. In addition, data may be omitted in some cases. CLINICAL DECISIONS SHOULD BE BASED ON THE PRIMARY CLINICAL RECORDS. [facility] [employer] provides no warranty or guarantee of the accuracy or completeness of information in this document.
--- NOTE | 2023-08-03 10:39 | P.ON_ITS ---
Date of procedure: 08/03/23 Pre-op diagnosis: Cervical spondylosis Post-op diagnosis: same as pre-op Procedure: Right cervical 2-3, 3-4 medial branch block Under fluoroscopic guidance Solution injected: 3milliliters Marcaine 0.25% Anesthesia :none Immediate complications none Time out process compliant After informed consent obtained from the patient placed in the Prone proposition. area was prepped and draped in a sterile fashion using betadine .25 gauge spinal needle inserted over each of the above mentioned target areas . [place] were directed towards the target under fluoroscopic guidance . after encountering each of the targets , no indication of intravascular intraneuronal or intrathecal needle tip placement. Then 0 .5 to 1 Milliliter was injected at each level. [place] removed postoperatively. patient transferred to recovery in stable condition to be discharged home after meeting criteria Anesthesia: Local Condition: stable
== END 2023-08-03 10:00 | disposition home or self-care (01) ==
LOC: SURGOUT 08:44
PROVIDERS: PCP Family Medicine; Visit Provider Anesthesiology Pain Medicine
DX: M47.812 Spondylosis without myelopathy or radiculopathy, cervical region (principal)
CPT/HCPCS: 36415; 64490; 64491; 82948

== ENCOUNTER 2023-08-17 09:59 | Outpatient (OUT) | payer MEDICAID, SELFPAY ==
--- OUTSIDE RECORDS SUMMARY | 2023-08-17 10:07 | XMS_ITS | CCD ---
Author Name Unknown Address [address] [place] [address] Organization [facility] Care Team Providers [employer] Name Role Phone LAURY AZAR Primary Care Unavailable CONNER DUVAL Admitting Unavailable CONNER DUVAL Attending Unavailable DHRUV PAZ Referring Unavailable SELF, REFERRED Primary Care Unavailable SELF, REFERRED Referring Unavailable CONNER DUVAL Admitting Unavailable CONNER DUVAL Attending Unavailable Sandoval Sloano Unavailable Garcia Sanchez Unavailable MD Laury Azar Primary Care Provider MD Garcia Sanchez Attending Provider Garcia Sanchez Attending Unavailable Garcia Sanchez Admitting Unavailable Laury Azar Primary Care Unavailable Eleuterio Urbina DDS Attending Unavailable CONNOR WEBSTER Attending Unavailable CASANDRA, LAURY F Referring Unavailable ELEANORCONNOR VO Attending Unavailable CASANDRA, LAURY F Referring Unavailable WHITMORECHRIS Attending Unavailable CASANDRA, LAURY F Referring Unavailable CASANDRA, LAURY F Attending Unavailable CASANDRA, LAURY F Referring Unavailable WHITMORECHRIS Attending Unavailable CASANDRA, LAURY F Referring Unavailable ELEANORCONNOR VO Attending Unavailable CASANDRA, LAURY F Referring Unavailable WHITMORECHRIS Attending Unavailable CASANDRA, LAURY F Referring Unavailable NILOANU Referring Unavailable NILO, ANU Attending Unavailable NILO, ANU Attending Unavailable KEVIN CLINTON Referring Unavailable SKICONNER Ferrari Attending Unavailable Allergies Allergy Classification Reported Allergen(s) Allergy Type Date of Onset Reaction(s) Facility (2 sources) Vancomycin Drug Allergy [facility] Other (1 source) Vancomycin Drug Allergy 11-03-19 [facility] Repository (1 source) Glycopeptides (Antibiotic); Translations: [VANCOMYCIN ANALOGUES] Propensity to adverse reactions to drug (disorder) 02-08-20 [facility] Repository Medications Current Medications Medication Drug Class(es) [...] Medroxyprogesterone Active 150 MG IM As Directed November 02, 2022 12:00am Depo-Provera Act gabrielle metFORMIN hydrochloride 500 [...] Test Name Value Interpretation Reference Range Facility 36 08-15-2023 36 Called patient to reschedule her appt. Due to being out of office. Offered patient 08/18/2023 Normal [facility] 36on 07-24-2023 36 Lvm that pt does not need a prior auth. She just needs to schedule appt with Dr. Fuentes for injection Normal [facility] Follow-Upon 07-10-2023 Follow-Up [id number] Kellie Mann 1975 F Date Provider Department [place] 07/10/2023 ANU GOTTI MP ORTHO MPORTHO No family history on file Level of Service:87098 DC OFFICE/OUTPATIENT ESTABLISHED LOW MDM 20-29 MIN (GC) Reason for Visit and Comments: Pain [136] Normal [facility] XR CERVICAL SPINE 2-3 VIEWSo n 06-26-2023 [...] Not Available Office Visiton 05-29-2023 Follow-up visit [id number] Kellie Mann 1975 F Date Provider Department [place] 05/29/2023 ANU GOTTI MP ORTHO MPORTHO No family history on file Level of Service:37995 DC OFFICE/OUTPATIENT ESTABLISHED MOD MDM 30-39 MIN (25,GC) Reason for Visit and Comments: Pain [136] Normal [facility] MRI Shoulder w/o Lefton 05 MRI Shoulder w/o Left HISTORY: Left shou [...] [place] on 12/26/2022 1544 Normal [facility] Glucose Glucometer (BldC) [M ass/Vol]Ordered By: Garcia Sanchez on 11-02-2022 Glucose [Mass/Vol] 104 mg/dL [facility] Comment on above: Random Glucose Refer ence Range is dependent on time and content of last meal. Glucose of more than 200 mg/dL in a nonstressed, ambulatory subject supports the diagnosis of Diabetes Mellitus. Glucose Poct Glucometerson 0 11-02-2022 Commemt1 Glu2: Cleaned Meter Normal [facility] Comment on above: Result Comment: PERF ORMED BY: [facility] [address] [place] [address] PATHOLOGIST ANODIZER VICENTE SINGH M.D. Performed By: #### G LULS #### Point of Care testing , Glucose [Mass/Vol] 104 mg/dL Normal [facility] Comment on above: Result Comment: [place] Glucose Reference Range is dependent on time and content of last meal. Glucose of more than 200 mg/dL in a nonstressed, ambulatory subject supports the diagnosis of Diabetes Mellitus. Performed By: #### G LULS #### Point of Care testing , HCG ( test) IA.rapi d Ql (U)Ordered By: Garcia Sanchez on 11-02-2022 HCG ( test) Ql (U) Negative [facility] HCG,Urineon 11-02-2022 Beta HCG ( test) Ql (U) Negative Normal [facility] Comment on above: Result Comment: PERF ORMED BY: [facility] [address] [facility]. [place] [id number] PATHOLOGIST ANODIZER VICENTE SINGH M.D. Performed By: #### U HCG #### [facility] [address] No Panel InformationOrdered By: Garcia Sanchez on 11-02-2022 Bedside Glucose Comment Glu2: cleaned meter [facility] Follow-Upon 09-14-2022 Follow-Up [id number] Kellie Mann 1975 F Date Provider Department Center 09/14/2022 CONNER SU MP ORTHO MPORTHO No family history on file Level of Service:42722 DC OFFICE/OUTPATIENT ESTABLISHED MDM 10-19 MIN Reason for Visit and Comments: Follow-up [[id number]] Normal [facility] Diagnostic Mammogram, Bilate ral w/Ananth (3D)on 07-12-2022 [...] VERY IMPORTANT TO YOUR HEALTH. THE CURRENT [employer] GUIDELINES RECOMMENDS ANNUAL MAMMOGRAPHY BEGINNING AT AGE 38 THIS FACILITY USES A REMINDER SYSTEM TO ENSURE ALL PATIENTS RECEIVE REMINDER NOTIFICATIONS AT THE APPROPRIATE TIME BASED ON THE RECOMMENDATIONS OF THIS EXAM. Report reported and signed by Juaquin Bullock on 07/12/2022 1546 Normal [facility] Centrifugal Chiller Technician US Breast Limited, Lefton US Breast Limited, Left Please see right breast ultrasound report. Report reported and signed by Juaquin Bullock on 07/12/2022 1546 Normal [facility] SCREENING MAMMOGRAM W/ANANTH, BILATERAL*on 07-05-2022 SCREENING [...] Visible on only one projection. Asymmetries that box turner to be summation artifact are benign (BI-RADS 2). The BI-RADS [place] offers guidance regarding the other categories of [...] VERY IMPORTANT TO YOUR HEALTH. THE CURRENT [employer] GUIDELINES RECOMMENDS ANNUAL MAMMOGRAPHY BEGINNING AT AGE 38 THIS FACILITY USES A REMINDER SYSTEM TO ENSURE ALL PATIENTS RECEIVE REMINDER NOTIFICATIONS AT THE APPROPRIATE TIME BASED ON THE RECOMMENDATIONS OF THIS EXAM. Report reported and signed by Juaquin Bullock on 07/05/2022 1525 Normal [facility] Centrifugal Chiller Technician Operative Reporton 2 Operative Report MR#: [id number] S [facility] Pt. Name: Hilda Mann Room #: 0C Discharge Date: Birthdate: 1975 OPERATIVE REPORT DATE OF SURGERY: 12/16/2021 SURGEON: Conner Duval M.D. PREOPERATIVE DIAGNOSES: 1. Carpal tunnel syndrome, left hand. 2. Cubital tunnel syndrome, left elbow. POSTOPERATIVE DIAGNOSES: 1. Carpal tunnel syndrome, left hand. 2. Cubital tunnel syndrome, left elbow. PROCEDURES: 1. Carpal tunnel release, left hand. 2. Decompression of ulnar nerve, left elbow. PAPER FOLDING MACHINE OPERATOR: Juan Quintanilla M.D. ANESTHESIA: General. INDICATION FOR [...] far as we safely could using an [place] retractor to expose the proximal end and looked the proximal skin edge. The nerve was then released through the cubital tunnel releasing Magana's ligament and the fascia over the cubital tunnel. The nerve was free distally as the FCU fascias, both superficial and deep were split. Again, we used an [place] retractor to lift the distal end of [...] Magen/Conner Duval M.D. Date Trans: 12/16/2021 06:56 P/mmo [id number] cc: Laury Azar M.D. [facility] [place] [address] Dhruv Paz, [address] [facility] P[address]. Cam (more content not included)... Normal [facility] POC GLUCOSE LABon 12-16-2021 Glucose [Mass/Vol] 156 mg/dL High 70-100 [facility] Comment on above: Performed By: #### [id number] #### [facility] [address] [place] [address], [facility] POC URINE PREGNANCYon 2021 Beta HCG ( test) Ql (U) Negative Normal NEGATIVE [facility] Comment on above: Performed By: #### 8 [id number] #### [facility] [address] [place] [address], [facility] Vital Signs Date Time Vital Sign Value Performing Clinician Facility 11-02-2022 09:58-0400 Diastolic blood pressure 102 mm[Hg] MD Laury Azar Work Phone: [facility] 11-02-2022 09:58-0400 Heart rate 71 /min MD Laury Azar Work Phone: [facility] 11-02-2022 09:58-0400 Respiratory rate 16 /min MD Laury Azar Work Phone: [facility] 11-02-2022 09:58-0400 SaO2% (BldA) [Mass fraction] 100 % MD Laury Azar Work Phone: [facility] 11-02-2022 09:58-0400 Systolic blood pressure 161 mm[Hg] MD Laury Azar Work Phone: [facility] 11-02-2022 08:27-0400 Body height 165.1 cm MD Laury Azar Work Phone: [facility] 11-02-2022 08:27-0400 Body weight 95.25 kg MD Laury Azar Work Phone: [facility] 05-20-2021 15:45-0400 Body height 165.1 cm Sandoval Solano Other [facility] Other 05-20-2021 15:45-0400 Body mass index (BMI) [Ratio] 38.94 kg/m2 Sandoval Solano Other [facility] Other 05-20-2021 15:45-0400 Body temperature 97.9 [degF] Sandoval Solano Other [facility] Other 05-20-2021 15:45-0400 Body weight 106.14 kg Sandoval Solano Other [facility] Other 05-20-2021 15:45-0400 Diastolic blood pressure 85 mm[Hg] Sandoval Solano Other [facility] Other 05-20-2021 15:45-0400 Systolic blood pressure 127 mm[Hg] Sandoval Solano Other [facility] Other Encounters Encounter Date Encounter Type Care Provider Facility Start: 08-04-2023 End: 08-05-2023 ambulatory CHRIS WHITMORE Not Available Start: 08-01-2023 End: 08-01-2023 ambulatory CONNOR J ELEANOR Not Available Start: 07-27-2023 End: 07-27-2023 ambulatory CHRIS WHITMORE Not Available Start: 07-20-2023 End: 07-20-2023 ambulatory CHRIS WHITMORE Not Available Start: 07-18-2023 End: 07-18-2023 ambulatory CONNOR J ELEANOR Not Available Start: 07-14-2023 End: 07-14-2023 ambulatory CONNOR J ELEANOR Not Available Start: 07-10-2023 End: 07-10-2023 ambulatory ANU [facility] Start: 06-26-2023 End: 06-27-2023 ambulatory LAURY AZAR Not Available Start: 06-21-2023 End: 06-22-2023 ambulatory ANU NILO [facility] Start: 05-29-2023 ambulatory ANU NILO [facility] Start: 01-25-2023 ambulatory Eleuterio Schneiderhman DDS [facility] Start: 11-02-2022 End: 11-02-2022 ambulatory Garcia Sanchez Facility:[facility] Start: 11-02-2022 End: 11-02-2022 Admission to same day surgery center MD Laury Azar Work Phone: [facility] Work Phone: Start: 11-02-2022 End: 11-02-2022 ambulatory MD Laury Azar Work Phone: [facility] Work Phone: Start: 09-14-2022 ambulatory CONNER DUVAL [facility] Start: 07-05-2022 End: 07-05-2022 ambulatory Garcia Sanchez Other [facility] Other Start: 07-05-2022 Telephone encounter Garcia CAPUTO G [employer]leece Sorter Start: 12-16-2021 End: 12-17-2021 ambulatory LAURY AZAR Facility:[facility] Start: 10-25-2021 End: 10-30-2021 ambulatory REFERRED SELF Facility:[facility] Start: 05-20-2021 Office outpatient vi sit 25 minutes Sandoval SILVA Infectious Disease Procedures Date Procedure Procedure Detail Performing Clinician Start: 11-02-2022 Colonoscopy MD Laury resendez Work Phone: Start: 09-14-2022 Follow-up visit Follow-up CONNER DUVAL Plan of Treatment Date Care Activity Detail Author Start: 11-02-2022 [facility] Payers Date Payer Category Payer Self-pay [id number] 2022 Medicaid [id number] 1975 Unknown [id number] 2.16.8 [id number] 1975 Unknown [id number] 2.16.8 [id number] 1975 Unknown [id number] 2.16.840 .1.784047.3.579.2.1259 1975 Unknown [id number] 2.16.840 .1.582039.3.579.2.1259 1975 Unknown [id number] 2.16.840 .[id number] 1975 Unknown [id number] 2.16.840 .1.058163.3.579.2.1259 1975 Unknown [id number] 2.16.840 .1.719910.3.579.2.1259 1975 Unknown [id number] 2.16.840 .1.362498.3.579.2.1259 1975 Unknown [id number] 2.16.840 .1.451286.3.579.2.1259 1975 Unknown [id number] 2.16.840 .1.243987.3.579.2.1259 Unknown [id number] Unknown [place] [id number] Unknown [id number] 2.16.8 [id number] Social History Date Type Detail Facility Unknown if ever smoked [facility] Other Sex Assigned At Sex Assigned At Bir th [facility] Other Start: 11-02-2022 Tobacco smoking status NHIS Never smoked tobacco (finding) [facility] Start: 1975 Sex Assigned At Female F [facility] Goals Date Patient Goal Desired Activity [...] be an additional personal documentation from me. [facility] 05-29-2023 Note Attestation signed by Anu Wilkerson [...] repair Joseph Campoverde MD PGY-5 Orthopedic Surgery [facility] By using the attestations below, the signing [...] be an additional personal documentation from me. [facility] 05-29-2023 Note Subjective Chief complaint: Chief Complaint [...] repair Joseph Campoverde MD PGY-5 Orthopedic Surgery [facility] By using the attestations below, the signing clinician agrees that I have read and verify that the documentation has been personally reviewed by me and ensure that the documentation accurately reflects the encounter. GC: I personally saw this patient on the day of the encounter, performed the joienr portion(s) of the service and participated in [...] and draped in the usual sterile fashion. [facility] 11-02-2022 Procedure note [facility] 09-14-2022 Note Orthopedic Surgery Subjective Follow-up of [...] We will see her back as needed. [facility] 07-12-2022 Note FINDINGS: Sonographic evaluation of both breasts demonstrates no worrisome cystic or solid mass lesions. Reference is made to the same day mammogram and recent mammogram of July 05, 2022. IMPRESSION: BI-RADS 3- Probably Benign. Short term interval follow up. Recommend follow up bilateral mammography in 6 months. Report reported and signed by Juaquin Bullock on 07/12/[address] [place] [address] Centrifugal Chiller Technician 05-20-2021 Evaluation note Encounter Date Diagnosis Assessment Notes May, History of MRSA infection (ICD-10 - Z86.14) May, Arthritis of knee (ICD-10 - M17.10) [facility] [employer] Other Evaluation [facility]No [facility] [employer] Other Evaluation noteNo assessment information available [facility] Work Phone: History and physical note Author Garcia Sanchez [facility] November 02, 2022 9:14am Note Date/Time November 02, 2022 9:1 4am [facility] [address] [place] [address] Gastroenterology H&P Signed Patient: Hilda Mann MR#: [id number] : 1975 Acct:[id number] Age/Sex: 47 / F Adm Date: 3 Loc: Room: Type: [facility] Attending Dr: Garcia Sanchez MD Copies to: [...] <Electronically signed by Garcia Sanchez MD> 11/02/22913 [facility] Work Phone: History general Narrative - Reported* Type Description Date Medical History MRSA Medical History HTN Surgical History BILATERAL KNEES Surgical History C SECTION Surgical History BILATERAL FEET Surgical History R ELBOW [facility] Other Hospital Discharge instructions Additional Instructions DISCHARGE [...] FOLLOW UP & RECOMMENDATIONS: -Follow-up with Dr. Snachez as needed -Notify the doctor if you have any problems. -Repeat colonoscopy in 5 years because of your family history. You should never go longer than 5 years without a colonoscopy. -Follow up with PCP. -Office number [phone].[facility] Work Phone: Summary Purpose Family History No Family History Records Found Relationship Condition Age at Onset Recorded Date/T giacomo Not Specified Malignant neoplasm of uterus Unknown Malignant neoplasm of colon Unknown Malignant neoplasm of throat Unknown grandparent Malignant neoplasm of uterus Unknown Advance Directives No Advanced Directives Records Found Advance Directive Response Recorded Date/ Time Advance Directives No October 24 019 12:54pm Chief Complaint and Reason for Visit Chief Complaint Polyp of Colon Additional Source Comments INFORMATION SOURCE (unrecogn ized section and content) DATE CREATED AUTHOR 12/22/2021 [facility] DATE CREATED AUTHOR AUTHOR'S ORGANIZ ATION 11/11/2022 [facility] DATE CREATED AUTHOR AUTHOR'S ORGANIZ ATION 12/27/2022 [facility] dical Specialist DATE CREATED AUTHOR AUTHOR'S ORGANIZ ATION 03/18/2023 [facility] DATE CREATED AUTHOR AUTHOR'S ORGANIZ ATION 08/09/2023 [facility] dical Specialists EPIC DATE CREATED AUTHOR AUTHOR'S ORGANIZ ATION 08/15/2023 [facility] REASON FOR VISIT (unrecogniz ed section and [...] BE BASED ON THE PRIMARY CLINICAL RECORDS. [employer] provides no warranty or guarantee of the accuracy or completeness of information in this document.
--- NOTE | 2023-08-17 10:08 | P.CN_ITS ---
Consult Note: HPI Data of Consult Patient: known to practice within the last 3 years Consult date: 08/17/23 Requesting Physician: Yolanda Saenz NP Primary Care Provider: TIMA GUAJARDO Consult Narrative Reason for consult: f/u Narrative: Hilda Mann a pleasant 47 year old female presents for evaluation and management of chronic right sided neck pain. Patient has had greater than 3 months of right sided neck pain and headaches without relief from medications and PT/HEP. Patient finding benefit from gabapentin 300mg daily. Pain today 08/23, worsening to moderate to severe at times. Patient had 100% immediate pain relief and functional improvement immediately following right C2-3 C3-4 facet medial branch block #1 working towards thermal RFA cc:: CC: Yolanda Saenz NP Review of Systems 2 ROS0 Status of ROS 10 or more systems reviewed and unremark able except as noted in history and below Ears, nose, mouth, and throat Reports: neck pain PFSH PFSH Medical History Hyperthyroidism ?E05.90 - Thyrotoxicosis, unspecified without thyrotoxic crisis or storm (ICD-10) Asthma ?J45.909 - Unspecified asthma, uncomplicated (ICD-10) Diabetes ?E11.9 - Type 2 diabetes mellitus without complications (ICD-10) High cholesterol ?E78.00 - Pure hypercholesterolemia, unspecified (ICD-10) HTN (hypertension) ?I10 - Essential (primary) hypertension (ICD-10) Left hip pain ?M25.552 - Pain in left hip (ICD-10) Surgical History History of cholecystectomy ?Z90.49 - Acquired absence of other specified parts of digestive tract (ICD- 10) Previous section ?Z98.891 - History of uterine scar from previous surgery (ICD-10) History of fasciotomy ?Z98.890 - Other specified postprocedural states (ICD-10) History of arthroscopy of right shoulder ?Z98.890 - Other specified postprocedural states (ICD-10) History of decompression of ulnar nerve ?Z98.890 - Other specified postprocedural states (ICD-10) S/P carpal tunnel release ?Z98.890 - Other specified postprocedural states (ICD-10) History of total knee arthroplasty ?Z96.659 - Presence of unspecified artificial knee joint (ICD-10) H/O arthroscopy of shoulder ?Z98.890 - Other specified postprocedural states (ICD-10) Meds Home Medications and Allergies Home Medications Medication Instructions Recorded Confirmed Type atorvastatin 20 mg tablet 20 mg PO DAILY 04/14/23 08/03/23 History budesonide 180 mcg/actuation 1 inh inhalation DAILY 04/14/23 08/03/23 History breath activated powder inhaler (Pulmicort Flexhaler) hydrochlorothiazide 25 mg tablet 25 mg PO DAILY 04/14/23 08/03/23 History losartan 25 mg tablet 50 mg PO DAILY 04/14/23 08/03/23 History metformin 500 mg tablet 500 mg PO DAILY 04/14/23 08/03/23 History venlafaxine 75 mg tablet 75 mg PO DAILY 04/14/23 08/03/23 History methimazole 20 mg tablet 20 mg PO DAILY 04/19/23 08/03/23 History albuterol sulfate 90 mcg/actuation 2 inh inhalation Q4H PRN shortness 07/24/23 08/03/23 History aerosol inhaler of breath or wheezing gabapentin 300 mg capsule 300 mg PO DAILY 07/24/23 08/03/23 History medroxyprogesterone 150 mg/mL 300 mg IM .Q3 Months 07/24/23 08/03/23 History intramuscular suspension (Depo-Provera) Allergies Allergy/AdvReac Type Severity Reaction Status Date / Time vancomycin AdvReac flushing, Verified 04/19/23 10:08 itching Exam Constitutional Documenting provider has reviewed patient's vital signs: yes Common normals: no apparent distress, oriented x3, healthy appearing, alert and well nourished General appearance: cooperative [facility] Common normals: normocephalic, hearing grossly normal bilaterally and moist oral mucous membranes Head and scalp: normocephalic Eye Common normals: PERRL Pupil: PERRL Neck & C-Spine Common normals: full ROM General: normal visual inspection Other: positive right sided facet loading negative radiculopathy strength 5/5 in BUE, sensation intact Neck images: 2 1. Chest Common normals: inspection of chest normal Respiratory Common normals: normal respiratory effort, no retractions and no use of accessory muscles Neuro Common normals: oriented x3, CN's II-XII intact bilaterally, moves all extremities, no focal motor deficits, no sensory deficits noted and deep tendon reflexes 2+ bilaterally Sensorium/orientation: alert Motor exam: strength 5/5 throughout and no movement abnormalities noted Psych Common normals: mental status grossly normal, thought process normal, cooperative, affect normal, speech normal and activity/motor behavior normal Speech: normal speech Thought process: normal thought process Results Additional Findings Additional findings: I have checked an [place] report on this patient today and there are no aberrancies noted in the prescribing history.?? A drug screen was completed and reviewed within the last year, and if there has not been a drug screen completed we ordered one today to monitor higher risk, state monitored pain medication use. As part of providing excellent, safe, comprehensive care, the following was completed at our patient's visit: 1. A medication reconciliation and review to ensure accurate knowledge of current/active medications, including asking our patients to inform us about any [id number] medications or herbal remedies/nutritional supplements/alternative remedies. 2. A review to specifically ensure our patients have had annual screening for: elevated body mass index (BMI), tobacco use, screening for depression, and screening for unhealthy alcohol use. When screening is concerning, patients are provided with education and the specific recommendation to discuss the concerning health issue and treatment options with their primary care provider. Assessment and Plan Assessment and Plan (1) Cervical spondylosis: Assessment and Plan: The patient has had over 3 months of moderate to severe right sided neck pain with functional impairment and inadequate response to conservative care including NSAIDS (unless there are contraindication such as concurrent blood thinners), multiple oral or topical pain medications, and home exercise program/physical therapy.? Patient has completed >6 weeks of guided home exercise program and/or formal physical therapy program without relief of their symptoms.? I have reviewed the imaging of the cervical spondylosis and no red flags were identified.? The imaging reveals radiographic findings consistent with cervical spondylosis We discussed the risks and benefits of the procedure with the patient, and we are NOT planning on using sedation as outlined in the guidelines from Medicare unless there is a documented reason that sedation would be strongly recommended.??The procedure will be completed with fluoroscopic guidance.? Plan proceed with right C2/3 C3/4 facet medial branch block #2 working towards thermal RFA f/u 1 week after procedure
== END 2023-08-17 10:00 | disposition home or self-care (01) ==
LOC: PM 10:02
PROVIDERS: PCP Family Medicine; Visit Provider Nurse Practitioner
DX: M47.812 Spondylosis without myelopathy or radiculopathy, cervical region (principal)
CPT/HCPCS: G0463

== ENCOUNTER 2023-09-19 07:24 | Day surgery (SDC) | payer MEDICAID, SELFPAY ==
--- OUTSIDE RECORDS SUMMARY | 2023-09-19 07:26 | XMS_ITS | CCD ---
Author Name Unknown Address [email or web address] [place] [address] Organization [facility] Care Team Providers Care Newspaper Delivery Driver Name Role Phone LAURY AZAR Primary Care Unavailable CONNER DUVAL Admitting Unavailable CONNER DUVAL Attending Unavailable DHRUV PAZ Referring Unavailable SELF, REFERRED Primary Care Unavailable SELF, REFERRED Referring Unavailable CONNER DUVAL Admitting Unavailable CONNER DUVAL Attending Unavailable Sandoval Solano Unavailable Garcia Sanchez Unavailable MD Laury Azar Primary Care Provider MD Garcia Sanchez Attending Provider Gracia Sanchez Attending Unavailable Garcia Sanchez Admitting Unavailable [...] NILOANU Referring Unavailable NILO, ANU Attending Unavailable KEVIN CLINTON Referring Unavailable NILO, ANU Attending Unavailable MICHELLE ANAND Attending Unavailable NILO, ANU Attending Unavailable Allergies Allergy Classification Reported Allergen(s) Allergy Type Date of Onset Reaction(s) Facility (2 sources) Vancomycin Drug Allergy [facility] Spirits Other (1 source) Vancomycin Drug Allergy 11-03-19 [facility] Repository (1 source) Glycopeptides (Antibiotic); Translations: [VANCOMYCIN ANALOGUES] Propensity to adverse reactions to drug (disorder) 02-08-20 [facility] Repository Medications Current Medications Medication Drug Class(es) [...] extended release oral capsule (1 source) beta-Adrenergic Trdui Start: 11-02-2022 take 80 mg by mouth [...] 12:00am Effexor 75 MG QD Active Problems Active Problems Problem Classification Problem Date Documented Date Episodic/Chronic Bacterial infection; unspecified site (3 sources) History of methicillin resistant Staphylococcus aureus infection; Translations: [Personal history of Methicillin resistant Staphylococcus aureus infection] Onset: 05-20-2021 Resolved: 05-20-2021 Episodic Osteoarthritis (3 sources) Arthritis of knee; Translations: [Unilateral primary osteoarthritis, unspecified knee] Onset: 05-20-2021 Resolved: 05-20-2021 Chronic Sprains and strains (2 sources) Other sprain of left hip, sequela; Translations: [Other sprain of left hip, sequela] Onset: 09-11-2023 Episodic Unclassified (1 source) Encounter for screening for malignant neoplasm of colon; Translations: [Encounter for screening for malignant neoplasm of colon] Onset: 11-02-2022 Past or Other Problems Problem Classification Problem Date Documented Da te Episodic/Chronic Other connective tissue disease (2 sources) Psoas tendinitis, left hip; Translations: [Psoas tendinitis, left hip] Onset: 05-29-2023 Episodic Other non-traumatic joint disorders (2 sources) Pain in left hip; Translations: [Pain in left hip] Onset: 05-29-2023 Episodic Results Test Name Value Interpretation Reference Range Facility Follow-Upon 09-11-2023 Follow-Up [id number] Kellie Mann ie 1975 F Date Provider Department Center 09/11/2023 ANU GOTTI MP ORTHO MPORTHO No family history on file Level of Service:00121 ME OFFICE/OUTPATIENT ESTABLISHED MOD MDM 30 MIN Reason for Visit and Comments: Pain [136] [facility] 36on 08-22-2023 [address] [facility] 36 Patient received abo ut 4-5 hour relief from the injection, still had joint popping but no pain. Pains back now so wants to know what she's supposed to do now. [facility] Procedure Visiton 08-18-2023 Procedure Visit [id number] Kellie Mann ie 1975 F Date Provider Department [place] 08/18/2023 MICHELLE CHEEK MP ORTHO MPORTHO No family history on file Level of Service:31326 ME OFFICE/OUTPATIENT NEW LOW MDM 30 MINUTES (25) Reason for Visit and Comments: Injections [186] [facility] 36on 08-15-2023 36 Called patient to reschedule her appt. Due to being out of office. Offered patient 08/18/2023 [facility] 36on 07-24-2023 36 Lvm that pt does not need a prior auth. She just needs to schedule appt with Dr. Fuentes for injection [facility] Follow-Upon 07-10-2023 Follow-Up [id number] Kellie Mann ie 1975 F Date Provider Department Center 07/10/2023 ANU GOTTI MP ORTHO MPORTHO No family history on file Level of Service:72779 ME OFFICE/OUTPATIENT ESTABLISHED LOW MDM 20-29 MIN (GC) Reason for Visit and Comments: Pain [136] [facility] XR CERVICAL SPINE 2-3 VIEWSo n 11-13-2023 XR CERVICAL SPINE 2-3 VIEWS CLINICAL HISTORY: [...] Not Available Office Visiton 05-29-2023 Follow-up visit [id number] Plant,Kellie ie 1975 F Date Provider Department Center 05/29/2023 Yoli3-ANU WILKERSON MP ORTHO MPORTHO No family history on file Level of Service:82136 ME OFFICE/OUTPATIENT ESTABLISHED MOD MDM 30-39 MIN (25,GC) Reason for Visit and Comments: Pain [136] Normal [facility] MRI Shoulder w/o Lefton 12-12 MRI Shoulder w/o Left HISTORY: Left shou [...] by Stevie Holm on 12/26/2022 1544 Normal [facility] Specialist Glucose Glucometer (BldC) [M ass/Vol]Ordered By: Garcia Sanchez on 11-02-2022 Glucose [Mass/Vol] 104 mg/dL [facility] Comment on above: Random Glucose Refer ence Range is dependent on time and content of last meal. Glucose of more than 200 mg/dL in a nonstressed, ambulatory subject supports the diagnosis of Diabetes Mellitus. Glucose Poct Glucometerson 0 11-02-2022 Commemt1 Glu2: Cleaned Meter [facility] Comment on above: Result Comment: PERF ORMED BY: [place] [address] PATHOLOGIST FIRST RESPONDER VICENTE SINGH M.D. Performed By: #### G LULS #### Point of Care testing , Glucose [Mass/Vol] 104 mg/dL Normal [facility] Comment on above: Result Comment: [place] om Glucose Reference Range is dependent on time and content of last meal. Glucose of more than 200 mg/dL in a nonstressed, ambulatory subject supports the diagnosis of Diabetes Mellitus. Performed By: #### G LULS #### Point of Care testing , HCG ( test) Rm salmeron Ql (U)Ordered By: Garcia Sanchez on 11-02-2022 HCG ( test) Ql (U) Negative [facility] HCG,Urineon 11-02-2022 Beta HCG ( test) Ql (U) Negative Normal [facility] Comment on above: Result Comment: PERF ORMED BY: [place] [address] PATHOLOGIST FIRST RESPONDER VICENTE SINGH M.D. Performed By: #### U HCG #### [address] No Panel InformationOrdered By: Garcia Sanchez on 11-02-2022 Bedside Glucose Comment Glu2: cleaned meter [facility] Diagnostic Mammogram, Bilate ral w/Ananth (3D)on 07-12-2022 [...] VERY IMPORTANT TO YOUR HEALTH. THE CURRENT [employer] GUIDELINES RECOMMENDS ANNUAL MAMMOGRAPHY BEGINNING AT AGE 40 THIS FACILITY USES A REMINDER SYSTEM TO ENSURE ALL PATIENTS RECEIVE REMINDER NOTIFICATIONS AT THE APPROPRIATE TIME BASED ON THE RECOMMENDATIONS OF THIS EXAM. Report reported and signed by Juaquin Bullock on 07/12/2022 1546 Normal [facility] Specialist US Breast Limited, Lefton US Breast Limited, Left Please see right breast ultrasound report. Report reported and signed by Juaquin Bullock on 07/12/2022 1546 Normal [facility] SCREENING MAMMOGRAM W/ANANTH, BILATERAL*on 07-05-2022 SCREENING [...] Visible on only one projection. Asymmetries that bottom turning lathe tender to be summation artifact are benign (BI-RADS 2). The BI-RADS [place] offers guidance regarding the other categories of [...] VERY IMPORTANT TO YOUR HEALTH. THE CURRENT [employer] GUIDELINES RECOMMENDS ANNUAL MAMMOGRAPHY BEGINNING AT AGE 40 THIS FACILITY USES A REMINDER SYSTEM TO ENSURE ALL PATIENTS RECEIVE REMINDER NOTIFICATIONS AT THE APPROPRIATE TIME BASED ON THE RECOMMENDATIONS OF THIS EXAM. Report reported and signed by Juaquin Bullock on 07/05/2022 1525 Normal [facility] Outdoor Advertising Leasing Agent Operative Reporton 2 Operative Report MR#: [id number] S [facility] Pt. Name: Hilda Mann Room #: 0C Discharge Date: Birthdate: 1975 OPERATIVE REPORT DATE OF SURGERY: 12/16/2021 SURGEON: Conner Duval M.D. PREOPERATIVE DIAGNOSES: 1. Carpal tunnel syndrome, left hand. 2. Cubital tunnel syndrome, left elbow. POSTOPERATIVE DIAGNOSES: 1. Carpal tunnel syndrome, left hand. 2. Cubital tunnel syndrome, left elbow. PROCEDURES: 1. Carpal tunnel release, left hand. 2. Decompression of ulnar nerve, left elbow. POST ACUTE CARE REGISTERED NURSE: Juan Quintanilla M.D. ANESTHESIA: General. INDICATION FOR [...] far as we safely could using an [place] retractor to expose the proximal end and looked the proximal skin edge. The nerve was then released through the cubital tunnel releasing Magana's ligament and the fascia over the cubital tunnel. The nerve was free distally as the FCU fascias, both superficial and deep were split. Again, we used an [place] retractor to lift the distal end of [...] Duval M.D. Date Trans: 12/16/2021 06:56 P/arvind [id number] cc: Laury Azar M.D. [address] [place] [address] Dhruv Paz, [address] Kim Billings P. OAnil Levy (more content not included)... Normal [facility] POC GLUCOSE LABon 12-16-2021 Glucose [Mass/Vol] 156 mg/dL High 70-100 [facility] Comment on above: Performed By: #### [id number] #### [facility] [address] [facility] [address], [facility] POC URINE PREGNANCYon 2021 Beta HCG ( test) Ql (U) Negative Normal NEGATIVE [facility] Comment on above: Performed By: #### 8 0 #### [facility] [address] [facility] [address], [facility] Vital Signs Date Time Vital Sign Value Performing Clinician Facility 11-02-2022 09:58-0400 Diastolic blood pressure 102 mm[Hg] MD Laury Azar Work Phone: [facility] 11-02-2022 09:58-0400 Heart rate 71 /min MD Laury Azar Work Phone: [facility] 11-02-2022 09:58-0400 Respiratory rate 16 /min MD Laury Azar Work Phone: [facility] 11-02-2022 09:58-0400 SaO2% (BldA) [Mass fraction] 100 % MD Laury Azar Work Phone: [facility] 11-02-2022 09:58-0400 Systolic blood pressure 161 mm[Hg] MD Laury Azar Work Phone: [facility] 11-02-2022 08:27-0400 Body height 165.1 cm MD Laury Azar Work Phone: [facility] 11-02-2022 08:27-0400 Body weight 95.25 kg MD Laury Azar Work Phone: [facility] 05-20-2021 15:45-0400 Body height 165.1 cm Sandoval Solano Other [employer] Other 05-20-2021 15:45-0400 Body mass index (BMI) [Ratio] 38.94 kg/m2 Sandoval Solano Other [employer] Other 05-20-2021 15:45-0400 Body temperature 97.9 [degF] Sandoval Solano Other [employer] Other 05-20-2021 15:45-0400 Body weight 106.14 kg Sandoval Solano Other [employer] Other 05-20-2021 15:45-0400 Diastolic blood pressure 85 mm[Hg] Sandoval Solano Other [employer] [facility] [employer] Other 05-20-2021 15:45-0400 Systolic blood pressure 127 mm[Hg] Sandoval Solano Other [employer] Other Encounters Encounter Date Encounter Type Care Provider Facility Start: 09-11-2023 ambulatory ANU [facility] Start: 08-18-2023 ambulatory MICHELLE ANAND [facility] Start: 08-04-2023 End: 08-05-2023 ambulatory CHRIS WHTIMORE Not Available Start: 08-01-2023 End: 08-01-2023 ambulatory CONNOR J ELEANOR Not Available Start: 07-27-2023 End: 07-27-2023 ambulatory CHRIS WHITMORE Not Available Start: 07-20-2023 End: 07-20-2023 ambulatory CHRIS WHITMORE Not Available Start: 07-18-2023 End: 07-18-2023 ambulatory CONNOR J ELEANOR Not Available Start: 07-14-2023 End: 07-14-2023 ambulatory CONNOR J ELEANOR Not Available Start: 07-10-2023 End: 07-10-2023 ambulatory ANU [facility] Start: 06-26-2023 End: 06-27-2023 ambulatory LAURY AZAR Not Available Start: 06-21-2023 End: 06-22-2023 ambulatory ANU [facility] Start: 05-29-2023 ambulatory ANU [facility] Start: 01-25-2023 ambulatory Eleuterio Urbina DDS [facility] Start: 11-02-2022 End: 11-02-2022 ambulatory Garcia Sanchez Facility:[facility] Start: 11-02-2022 End: 11-02-2022 Admission to same day surgery center MD Laury Azar Work Phone: [facility] Work Phone: Start: 11-02-2022 End: 03-22-2023 ambulatory MD Laury Azar Work Phone: [facility] Work Phone: Start: 07-05-2022 End: 07-05-2022 ambulatory Garcia Sanchez Other [facility] [employer] Other Start: 07-05-2022 Telephone encounter Garcia CAPUTO G Retail Service Lead Merchandiser Start: 12-16-2021 End: 12-17-2021 ambulatory LAURY AZAR Facility:[facility] Start: 10-25-2021 End: 10-30-2021 ambulatory REFERRED SELF Facility:[facility] Start: 05-20-2021 Office outpatient vi sit 25 minutes Sandoval SILVA Infectious Disease Procedures Date Procedure Procedure Detail Performing Clinician Start: 11-02-2022 Colonoscopy MD Laury resendez Work Phone: Plan of Treatment Date Care Activity Detail Author Start: 11-02-2022 [facility] Payers Date Payer Category Payer Medicaid [id number] 2022 Self-pay [id number] 1975 Unknown [id number] 2.16.8 [id number] 1975 Unknown [id number] 2.16.8 [id number] 1975 Unknown [id number] 2.16.840 .[id number] 1975 Unknown [id number] 2.16.840 .1.192638.3.579.2.9 1975 Unknown [id number] 2.16.840 .[id number] 1975 Unknown [id number] 2.16.840 .1.576695.3.579.2.9 1975 Unknown [id number] 2.16.840 .1.778037.3.579.2.9 1975 Unknown [id number] 2.16.840 .1.893049.3.579.2.1259 1975 Unknown [id number] 2.16.840 .1.419415.3.579.2.1259 1975 Unknown [id number] 2.16.840 .1.143342.3.579.2.1259 Unknown [id number] Unknown [place] [id number] Unknown [id number] 2.16.8 [id number] Social History Date Type Detail Facility Unknown if ever smoked [employer] Other Sex Assigned At Sex Assigned At Bir th [employer] Other Start: 11-02-2022 Tobacco smoking status NHIS Never smoked tobacco (finding) [facility] Start: 1975 Sex Assigned At Female F [facility] Goals Date Patient Goal Desired Activity /State Clinical Notes 05-20-2021 to 09-11-2023 Note Date & Type Note Facility 09-11-2023 Note Subjective Chief complaint: Chief Complaint Patient presents with Left Hip - Pain 09/11/23 Patient continues to have pain in her left hip unchanged from prior. She had a lidocaine injection to the left hip joint 24 days ago (08/18/23) which provided her with 4-5 hours of relief. She is taking motrin for pain. 07/10/23 Patient states in the interim, the [...] a 47 y.o. year old female with Tear of acetabular labrum, left, sequela Diagnostic lidocaine injection confirms that patient does indeed have a left hip acetabular labral tear. This was my reading on the MRI as well. Options discussed. She would like surgical repair -Signed consent for left hip arthroscopy with labral tear repair and possible debridement. -Risks of bleeding, infection, damage to nerves/vessels, anesthesia, blood clots, failure of repair or reconstruction, retear, stiffness, arthritis, hardware complication, permanent pain/dysfunction, and the need for further surgery were discussed. Alternatives to surgery were discussed. Post operative course was discussed. All questions were answered. After discussed, the patient elected to proceed. Informed consent was obtained in clinic. IDA MERRITT MS3 [facility] 08-18-2023 Note Sports Medicine Subj ective Injections of the Left Hip HPI: Hilda Mann is a 47 y.o. year old female referred by Dr. Wilkerson for evaluation for possible diagnostic US guided injection of the Left hip. Pt reports pain for several years but worsened in January. States that with certain movements and twisting she would notice pain in the groin. Had a psoas tendon injection with minimal relief. Had MR Arthogram which was indeterminate for potential labral tear. She notices intermittent pain and popping. Rates current pain as: 4 /10 Pain described as being localized to the front of the hip and deep into the groin. Currently taking Ibuprofen intermittently. PT - completed physical therapy and doing home exercises currently Prior Injections: 04/19, had steroid along with Arthrogram - pt reports she did not have any residential relief with this Blood thinners: denies Allergy to Anesthetics: denies Hx of Diabetes: Last A1c of 5.7% MRA Arthogram 04/19/23 FINDINGS: Contrast fills the hip joint. No visualized fracture, dislocation, subluxation or osseous lesion. The acetabular labrum or articular cartilage of the femoral head and acetabulum exhibit no chondral or osteochondral defect. On the large [id number]-[id number] coronal imaging; the pubic symphysis, sacroiliac joints and right hip joint exhibit no discrete abnormality. No visualized deep pelvic abnormalities. The visualized superficial subcutaneous soft tissues are free of edema, hematoma, mass or cyst. No discrete muscle edema, hematoma, atrophy or fatty infiltration. No gross tendon thickening, tear or edema. No discrete bursal fluid collections. Review of Systems: ROS as noted in the HPI Patient History Past Surgical History: Procedure Laterality Date KNEE ARTHROPLASTY MR SHOULDER ARTHROGRAM RIGHT W FL GUIDED INJECTION Right 02/12/2018 MR SHOULDER ARTHROGRAM RIGHT W FL GUIDED INJECTION 02/12/2018 History reviewed. No pertinent past medical history. Objective Physical Exam: General: No acute distress Respiratory: Non-labored respirations, No audible wheezing Skin: Warm and dry Neurologic: Alert and oriented, no focal deficits Musculoskeletal: Musculoskeletal - LEFT HIP Inspection: No ecchymosis , erythema, or abrasions noted. Palpation: TTP over the anterior aspect of the hip ROM: Adequate hip ROM with Hip Flexion, Extension, IR and ER. Strength: 5/5 strength noted with resisted Hip flexion, extension, IR and ER Special tests: Log Roll test: positive FABERs: positive FADIRs: mild pain SCOUR: positive for pain and popping SI joint loading: Negative Straight Leg Raise: negative Procedure: Procedure: Ultrasound guided Left Intra-articular Hip Joint Diagnostic Lidocaine injection We reviewed the procedure of US guided Left Hip joint injection and discussed the risks, benefits, and alternative treatments. Verbal and written consent was obtained. I verified that the patient had no allergies to local anesthetic. We discussed the potential side effects of corticosteroids. A procedural pause was conducted to verify correct patient identity, procedure to be performed, correct side and site, and correct patient position. After verification, under ultrasound guidance using the Curved probe the Left femoral head and neck were identified, and Doppler images were obtained to ensure absence of vascular structures. Next, the skin was marked for injection. The area was then prepped in the usual sterile fashion. Ethyl Chloride was used to provide superficial anesthesia, Next under direct Ultrasound guidance, a 22 gauge 3.5 inch needle was advanced to bony contact at the junction of the femoral head and neck with the tip of the needle positioned just under the capsule. A combination of 5 mL of lidocaine 2% without epinephrine was injected into the joint space without difficulty, with the capsule distending accordingly. The needle was removed, hemostasis obtained and a sterile bandage was applied. The patient tolerated the procedure well without any complications and had improvement in pain directly after the procedure. Specific aftercare instructions and expectations discussed with patient and patient verbalized understanding. Assessment/Plan Psoas tendinitis of left side - Discussed options with patient including proceeding with the US guided intra-articular injection of the Left hip. - After discussion of risks, benefits, and alternative treatments, pt decided to proceed with the US guided injection. - Pt tolerated the procedure well with no complications and had improvement of pain, after the injection. Specific aftercare instructions and expectations reviewed with patient. - Pt understands that lidocaine provides only temporary relief and she is instructed to monitor the amount and duration of relief for the immediate period of time after the injection. - Patient will follow up with referring provider as directe (more content not included)... [facility] 07-10-2023 Note Attestation signed by Anu Wilkerson [...] be an additional personal documentation from me. [facility] 05-29-2023 Note Attestation signed by Anu Wilkerson [...] repair Joseph Campoverde MD PGY-5 Orthopedic Surgery [facility] By using the attestations below, [...] be an additional personal documentation from me. [facility] 05-29-2023 Note Subjective Chief complaint: Chief Complaint [...] repair Joseph Campoverde MD PGY-5 Orthopedic Surgery [facility] By using the attestations below, [...] and draped in the usual sterile fashion. [facility] 11-02-[address] [facility] 07-12-2022 Note FINDINGS: Sonographic evaluation of both breasts demonstrates no worrisome cystic or solid mass lesions. Reference is made to the same day mammogram and recent mammogram of July 05, 2022. IMPRESSION: BI-RADS 3- Probably Benign. Short term interval follow up. Recommend follow up bilateral mammography in 6 months. Report reported and signed by Juaquin Bullock on 07/12/2022 1545 [facility] [employer] 05-20-2021 Evaluation note Encounter Date Diagnosis Assessment Notes May, History of MRSA infection (ICD-10 - Z86.14) May, Arthritis of knee (ICD-10 - M17.10) [facility] [employer] Other [facility] [employer] Other Evaluation noteNo assessment information available [facility] Work Phone: History and physical note Author Garcia Sanchez [facility] November 02, 2022 9:14am Note Date/Time November 02, 2022 9:1 4am [facility] [address] [place] [address] Gastroenterology H&P Signed Patient: Hilda Mann MR#: [id number] : 1975 Acct:[id number] Age/Sex: 47 / F Adm Date: 3 Loc: Room: Type: [facility] Attending Dr: Garcia Sanchez MD Copies to: [...] <Electronically signed by Garcia Sanchez MD> 11/02/22913 [facility] Work Phone: History general Narrative - Reported* Type Description Date Medical History MRSA Medical History HTN Surgical History BILATERAL KNEES Surgical History C SECTION Surgical History BILATERAL FEET Surgical History R ELBOW [employer] Other Hospital Discharge instructions Additional Instructions DISCHARGE [...] colonoscopy. -Follow up with PCP. -Office number [phone].[facility] Work Phone: Summary Purpose Family History No [...] content) DATE CREATED AUTHOR 12/22/2021 [facility] DATE CREATED AUTHOR AUTHOR'S ORGANIZ ATION 11/11/2022 [facility] DATE CREATED AUTHOR AUTHOR'S ORGANIZ ATION 12/27/2022 [facility] dical Specialist DATE CREATED AUTHOR AUTHOR'S ORGANIZ ATION 03/18/2023 [facility] DATE CREATED AUTHOR AUTHOR'S ORGANIZ ATION 08/09/2023 [facility] dical Specialists EPIC DATE CREATED AUTHOR AUTHOR'S ORGANIZ ATION 09/16/2023 [facility] REASON FOR VISIT (unrecogniz ed section [...] BE BASED ON THE PRIMARY CLINICAL RECORDS. [facility] [employer] provides no warranty or guarantee of the accuracy or completeness of information in this document.
[2023-09-19 07:42] VITALS: BP 142/88; PULSE 81; RESP 16; TEMP 36.5; O2SAT 98
[2023-09-19 08:36] VITALS: BP 168/106; BP 170/111; PULSE 83; PULSE 84; RESP 18; O2SAT 96; O2SAT 98
[2023-09-19] MEDS: BUPIVACAINE HCL 0.25% PF 25 MG/10 ML VIAL 2 ML INJ (08:37)
--- NOTE | 2023-09-19 08:48 | W.PM.PROCNOT ---
Date of procedure: 09/19/23 Pre-op diagnosis: cervical spondylosis Post-op diagnosis: same as pre-op Procedure: Right Cervical 2/3, 3/4 medial branch block Under fluoroscopic guidance Solution injected: 2millilitersMarcaine 0.25% Anesthesia :none Immediate complications none Time out process compliant After informed consent obtained from the patient placed in the Prone proposition . area was prepped and draped in a sterile fashion using Cloraprep .25 gauge spinal needle inserted over each of the above mentioned target areas . [place] were directed towards the target under fluoroscopic guidance . after encountering each of the targets , no indication of intravascular intraneuronal or intrathecal needle tip placement. Then 0 .5 to 1 Milliliter was injected at each level. [place] removed postoperatively. patient transferred to recovery in stable condition to be discharged home after meeting criteria Anesthesia: Local Surgeon: Roxy Joseph Condition: stable
== END 2023-09-19 08:44 | disposition home or self-care (01) ==
PROVIDERS: PCP Family Medicine; Visit Provider Anesthesiology Pain Medicine
DX: M47.812 Spondylosis without myelopathy or radiculopathy, cervical region (principal)
CPT/HCPCS: 64490; 64491; J0665

== ENCOUNTER 2023-09-28 11:25 | Outpatient (OUT) | payer MEDICAID, SELFPAY ==
--- OUTSIDE RECORDS SUMMARY | 2023-09-28 11:31 | XMS_ITS | CCD ---
Author Name Unknown Address [address] [place] [address] Organization [facility] Care Team Providers Care Telepathist Name Role Phone LAURY AZAR Primary Care Unavailable CONNER DUVAL Admitting Unavailable CONNER DUVAL Attending Unavailable DHRUV PAZ Referring Unavailable SELF, REFERRED Primary Care Unavailable SELF, REFERRED Referring Unavailable CONNER DUVAL Admitting Unavailable CONNER DUVAL Attending Unavailable Sandoval Solano Unavailable Garcia Sanchez Unavailable MD Laury Azar Primary Care Provider [phone] MD Garcia Sanchez Attending Provider [phone] Garcia Sanchez Attending Unavailable Garcia Sanchez Admitting [...] Reaction(s) Facility (2 sources) Vancomycin Drug Allergy [facility] Other (1 source) Vancomycin Drug Allergy 11-03-19 [facility] Repository (1 source) Glycopeptides (Antibiotic); Translations: [VANCOMYCIN ANALOGUES] Propensity to adverse reactions to drug (disorder) 02-08-20 [facility] Repository Medications Current Medications Medication Drug Class(es) [...] Interpretation Reference Range Facility Follow-Upon 09-11-2023 Follow-Up [id number] Kellie Mann ie 1975 F Date Provider Department Center 09/11/2023 ANU GOTTI MP ORTHO MPORTHO No family history on file Level of Service:61016 MS OFFICE/OUTPATIENT ESTABLISHED MOD MDM 30 MIN Reason for Visit and Comments: Pain [136] [facility] 36on 08-22-2023 36 Appt was scheduled [facility] 36 Patient received abo ut 4-5 hour relief from the injection, still had joint popping but no pain. Pains back now so wants to know what she's supposed to do now. [facility] Procedure Visiton 08-18-2023 Procedure Visit [id number] Kellie Mann ie 1975 F Date Provider Department [place] 08/18/2023 MICHELLE CHEEK MP ORTHO MPORTHO No family history on file Level of Service:44183 MS OFFICE/OUTPATIENT NEW LOW MDM 30 MINUTES (25) Reason for Visit and Comments: Injections [186] [facility] 36on 08-15-2023 36 Called patient to reschedule her appt. Due to being out of office. Offered patient 08/18/2023 [facility] 36on 07-24-2023 36 Lvm that pt does not need a prior auth. She just needs to schedule appt with Dr. Fuentes for injection [facility] Follow-Upon 07-10-2023 Follow-Up [id number] Kellie Mann ie 1975 F Date Provider Department Center 07/10/2023 ANU GOTTI MP ORTHO MPORTHO No family history on file Level of Service:23973 MS OFFICE/OUTPATIENT ESTABLISHED LOW MDM 20-29 MIN (GC) Reason for Visit and Comments: Pain [136] [facility] XR CERVICAL SPINE 2-3 VIEWSo n 11-13-2023 [...] Not Available Office Visiton 05-29-2023 Follow-up visit [id number] Plant,Kellie ie 1975 F Date Provider Department Center 05/29/2023 Yoli3-ANU WILKERSON MP ORTHO MPORTHO No family history on file Level of Service:09877 MS OFFICE/OUTPATIENT ESTABLISHED MOD MDM 30-39 MIN (25,GC) Reason for Visit and Comments: Pain [136] Normal [facility] MRI Shoulder w/o Lefton 12-12 MRI Shoulder [...] by Stevie Holm on 12/26/2022 1544 Normal [facility] Specialist Glucose Glucometer (BldC) [M ass/Vol]Ordered By: Garcia Sanchez on 11-02-2022 Glucose [Mass/Vol] 104 mg/dL [facility] Comment on above: Random Glucose Refer ence Range is dependent on time and content of last meal. Glucose of more than 200 mg/dL in a nonstressed, ambulatory subject supports the diagnosis of Diabetes Mellitus. Glucose Poct Glucometerson 0 11-02-2022 Commemt1 Glu2: Cleaned Meter [facility] Comment on above: Result Comment: PERF ORMED BY: [place] [address] PATHOLOGIST TURNING SANDER OPERATOR VICENTE SINGH M.D. Performed By: #### G LULS #### Point of Care testing , Glucose [Mass/Vol] 104 mg/dL Normal [facility] Comment on above: Result Comment: [place] om Glucose Reference Range is dependent on time and content of last meal. Glucose of more than 200 mg/dL in a nonstressed, ambulatory subject supports the diagnosis of Diabetes Mellitus. Performed By: #### G LULS #### Point of Care testing , HCG ( test) Rm salmeron Ql (U)Ordered By: Garcia Sanchez on 11-02-2022 HCG ( test) Ql (U) Negative [facility] HCG,Urineon 11-02-2022 Beta HCG ( test) Ql (U) Negative Normal [facility] Comment on above: Result Comment: PERF ORMED BY: [place] [address] PATHOLOGIST TURNING SANDER OPERATOR VICENTE SINGH M.D. Performed By: #### U HCG #### [address] No Panel InformationOrdered By: Garcia Sanchez on 11-02-2022 Bedside Glucose Comment Glu2: cleaned meter [facility] Diagnostic Mammogram, Bilate ral w/Ananth (3D)on 07-12-2022 [...] VERY IMPORTANT TO YOUR HEALTH. THE CURRENT [employer] GUIDELINES RECOMMENDS ANNUAL MAMMOGRAPHY BEGINNING AT AGE 40 THIS FACILITY USES A REMINDER SYSTEM TO ENSURE ALL PATIENTS RECEIVE REMINDER NOTIFICATIONS AT THE APPROPRIATE TIME BASED ON THE RECOMMENDATIONS OF THIS EXAM. Report reported and signed by Juaquin Bullock on 07/12/2022 1546 Normal [facility] Specialist US Breast Limited, Lefton US Breast Limited, Left Please see right breast ultrasound report. Report reported and signed by Juaquin Bullock on 07/12/2022 1546 Normal [facility] SCREENING MAMMOGRAM W/ANANTH, BILATERAL*on 07-05-2022 SCREENING [...] Visible on only one projection. Asymmetries that collar turner to be summation artifact are benign (BI-RADS 2). The BI-RADS [place] offers guidance regarding the other categories of [...] VERY IMPORTANT TO YOUR HEALTH. THE CURRENT [employer]PREH[employer] GUIDELINES RECOMMENDS ANNUAL MAMMOGRAPHY BEGINNING AT AGE 40 THIS FACILITY USES A REMINDER SYSTEM TO ENSURE ALL PATIENTS RECEIVE REMINDER NOTIFICATIONS AT THE APPROPRIATE TIME BASED ON THE RECOMMENDATIONS OF THIS EXAM. Report reported and signed by Juaquin Bullock on 07/05/2022 1525 Normal [facility] [employer] Operative Reporton 2 Operative Report MR#: [id number] S [facility] Pt. Name: Hilda Mann Room #: 0C Discharge Date: Birthdate: 1975 OPERATIVE REPORT DATE OF SURGERY: 12/16/2021 SURGEON: Conner Duval M.D. PREOPERATIVE DIAGNOSES: 1. Carpal tunnel syndrome, left hand. 2. Cubital tunnel syndrome, left elbow. POSTOPERATIVE DIAGNOSES: 1. Carpal tunnel syndrome, left hand. 2. Cubital tunnel syndrome, left elbow. PROCEDURES: 1. Carpal tunnel release, left hand. 2. Decompression of ulnar nerve, left elbow. OFFSET LITHOGRAPHIC PRESS OPERATOR: Juan Quintanilla M.D. ANESTHESIA: General. INDICATION [...] far as we safely could using an [place] retractor to expose the proximal end and looked the proximal skin edge. The nerve was then released through the cubital tunnel releasing Magana's ligament and the fascia over the cubital tunnel. The nerve was free distally as the FCU fascias, both superficial and deep were split. Again, we used an [place] retractor to lift the distal end of [...] Duval M.D. Date Trans: 12/16/2021 06:56 P/arvind [id number] cc: Laury Azar M.D. [address] [place] [address] Dhruv Paz, [address] Kim Billings P. OAnil Levy (more content not included)... Normal [facility] POC GLUCOSE LABon 12-16-2021 Glucose [Mass/Vol] 156 mg/dL High 70-100 [facility] Comment on above: Performed By: #### [id number] #### [facility] [address] [facility] [place] [address], [facility] POC URINE PREGNANCYon 2021 Beta HCG ( test) Ql (U) Negative Normal NEGATIVE [facility] Comment on above: Performed By: #### 8 [id number] #### [facility] [address] [facility] [place] [address], [facility] Vital Signs Date Time Vital Sign Value Performing Clinician Facility 11-02-2022 09:58-0400 Diastolic blood pressure 102 mm[Hg] MD Laury Azar Work Phone: [facility] 11-02-2022 09:58-0400 Heart rate 71 /min MD Laury Azar Work Phone: [facility] 11-02-2022 09:58-0400 Respiratory rate 16 /min MD Laury Azar Work Phone: [facility] 11-02-2022 09:58-0400 SaO2% (BldA) [Mass fraction] 100 % MD Laury Azar Work Phone: [facility] 11-02-2022 09:58-0400 Systolic blood pressure 161 mm[Hg] MD Laury Azar Work Phone: [facility] 11-02-2022 08:27-0400 Body height 165.1 cm MD Laury Azar Work Phone: [facility] 11-02-2022 08:27-0400 Body weight 95.25 kg MD Laury Azar Work Phone: [facility] 05-20-2021 15:45-0400 Body height 165.1 cm Sandoval Solano Other [facility] Other 05-20-2021 15:45-0400 Body mass index (BMI) [Ratio] 38.94 kg/m2 Sandoval Solano Other [facility] Other 05-20-2021 15:45-0400 Body temperature 97.9 [degF] Sandoval Solano Other [facility] Other 05-20-2021 15:45-0400 Body weight 106.14 kg Sandoval Solano Other [facility] Other 05-20-2021 15:45-0400 Diastolic blood pressure 85 mm[Hg] Sandoval Solano Other [employer] [facility] [employer] Other 05-20-2021 15:45-0400 Systolic blood pressure 127 mm[Hg] Sandoval Solano Other [facility] Other Encounters Encounter Date Encounter Type Care Provider Facility Start: 09-11-2023 ambulatory ANU [facility] Start: 08-18-2023 ambulatory MICHELLE ANAND [facility] Start: 08-04-2023 End: 08-05-2023 ambulatory CHRIS WHITMORE Not Available Start: 08-01-2023 End: 08-01-2023 ambulatory CONNOR J ELEANOR Not Available Start: 07-27-2023 End: 07-27-2023 ambulatory CHRIS WHITMORE Not Available Start: 07-20-2023 End: 07-20-2023 ambulatory CHRIS WHITMORE Not Available Start: 07-18-2023 End: 07-18-2023 ambulatory CONNOR J ELEANOR Not Available Start: 07-14-2023 End: 07-14-2023 ambulatory CONNOR J ELEANOR Not Available Start: 07-10-2023 End: 07-10-2023 ambulatory ANU [facility] Start: 06-26-2023 End: 06-27-2023 ambulatory LAURY AZAR Not Available Start: 06-21-2023 End: 06-22-2023 ambulatory ANU [facility] Start: 05-29-2023 ambulatory ANU [facility] Start: 01-25-2023 ambulatory Eleuterio Urbina DDS [facility] Start: 11-02-2022 End: 11-02-2022 ambulatory Garcia Sanchez Facility:[facility] Start: 11-02-2022 End: 11-02-2022 Admission to same day surgery center MD Laury Azar Work Phone: [facility] Work Phone: Start: 11-02-2022 End: 03-22-2023 ambulatory MD Laury Azar Work Phone: [facility] Work Phone: Start: 07-05-2022 End: 07-05-2022 ambulatory Garcia Sanchez Other [facility] [employer] Other Start: 07-05-2022 Telephone encounter Garcia CAPUTO [employer] Start: 12-16-2021 End: 12-17-2021 ambulatory LAURY AZAR Facility:[facility] Start: 10-25-2021 End: 10-30-2021 ambulatory REFERRED SELF Facility:[facility] Start: 05-20-2021 Office outpatient vi sit 25 minutes Sandoval SILVA Infectious Disease Procedures Date Procedure Procedure Detail Performing Clinician Start: 11-02-2022 Colonoscopy MD Laury resendez Work Phone: Plan of Treatment Date Care Activity Detail Author Start: 11-02-2022 [facility] Payers Date Payer Category Payer Medicaid [id number] 2022 Self-pay [id number] 1975 Unknown [id number] 2.16.8 [id number] 1975 Unknown [id number] 2.16.8 [id number] 1975 Unknown [id number] 2.16.840 .[id number] 1975 Unknown [id number] 2.16.840 .1.838734.3.579.2.9 1975 Unknown [id number] 2.16.840 .[id number] 1975 Unknown [id number] 2.16.840 .1.129160.3.579.2.9 1975 Unknown [id number] 2.16.840 .1.247532.3.579.2.9 1975 Unknown [id number] 2.16.840 .1.569293.3.579.2.1259 1975 Unknown [id number] 2.16.840 .1.679581.3.579.2.1259 1975 Unknown [id number] 2.16.840 .1.281115.3.579.2.1259 Unknown [id number] Unknown [place] [id number] Unknown [id number] 2.16.8 [id number] Social History Date Type Detail Facility Unknown if ever smoked [facility] Other Sex Assigned At Sex Assigned At Bir th [facility] Other Start: 11-02-2022 Tobacco smoking status NHIS Never smoked tobacco (finding) [facility] Start: 1975 Sex Assigned At Female F [facility] Goals Date Patient Goal Desired Activity /State [...] was obtained in clinic. 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 No visualized fracture, dislocation, subluxation or osseous lesion. The acetabular labrum or articular cartilage of the femoral head and acetabulum exhibit no chondral or osteochondral defect. On the large [id number] coronal imaging; the pubic symphysis, sacroiliac joints [...] provider as directe (more content not included)... [facility] 07-10-2023 Note Attestation signed by Anu Wilkerson [...] additional personal documentation from me. [facility] 05-29-2023 Note Attestation signed by Anu Wilkerson [...] repair Joseph Campoverde MD PGY-5 Orthopedic Surgery [facility] By using the attestations below, the signing [...] additional personal documentation from me. [facility] 05-29-2023 Note Subjective Chief complaint: Chief Complaint [...] repair Joseph Campoverde MD PGY-5 Orthopedic Surgery [facility] By using the attestations below, the signing [...] in the usual sterile fashion. [facility] 11-02-2022 Procedure note [facility] 07-12-2022 Note FINDINGS: Sonographic evaluation of both breasts demonstrates no worrisome cystic or solid mass lesions. Reference is made to the same day mammogram and recent mammogram of July 05, 2022. IMPRESSION: BI-RADS 3- Probably Benign. Short term interval follow up. Recommend follow up bilateral mammography in 6 months. Report reported and signed by Juaquin Bullock on 07/12/2022 1545 [facility] [employer] 05-20-2021 Evaluation note Encounter Date Diagnosis Assessment Notes May, History of MRSA infection (ICD-10 - Z86.14) May, Arthritis of knee (ICD-10 - M17.10) [facility] [employer] Other Evaluation [facility]No [facility] [employer] Other Evaluation noteNo assessment information available [facility] Work Phone: History and physical note Author Garcia Sanchez [facility] November 02, 2022 9:14am Note Date/Time November 02, 2022 9:1 4am [facility] [address] [place] [address] Gastroenterology H&P Signed Patient: Hilda Mann MR#: [id number] : 1975 Acct:[id number] Age/Sex: 47 / F Adm Date: 3 Loc: Room: Type: [facility] Attending Dr: Garcia Sanchez MD Copies [...] <Electronically signed by Garcia Sanchez MD> 11/02/22913 [facility] Work Phone: History general Narrative - Reported* Type Description Date Medical History MRSA Medical History HTN Surgical History BILATERAL KNEES Surgical History C SECTION Surgical History BILATERAL FEET Surgical History R ELBOW [facility] Other Hospital Discharge instructions Additional Instructions DISCHARGE [...] colonoscopy. -Follow up with PCP. -Office number [phone].[facility] Work Phone: Summary Purpose Family History No [...] section and content) DATE CREATED AUTHOR 12/22/2021 [facility] DATE CREATED AUTHOR AUTHOR'S ORGANIZ ATION 11/11/2022 [facility] DATE CREATED AUTHOR AUTHOR'S ORGANIZ ATION 12/27/2022 [facility] DATE CREATED AUTHOR AUTHOR'S ORGANIZ ATION 03/18/2023 [facility] DATE CREATED AUTHOR AUTHOR'S ORGANIZ ATION 08/09/2023 [facility] EPIC DATE CREATED AUTHOR AUTHOR'S ORGANIZ ATION 09/16/2023 [facility] REASON FOR VISIT (unrecogniz ed section [...] BE BASED ON THE PRIMARY CLINICAL RECORDS. [facility] [employer] provides no warranty or guarantee of the accuracy or completeness of information in this document.
--- NOTE | 2023-09-28 11:38 | P.CN_ITS ---
Consult Note: HPI Data of Consult Patient: known to practice within the last 3 years Consult date: 08/17/23 Requesting Physician: Yolnada Saenz NP Primary Care Provider: TIMA GUAJARDO Consult Narrative Reason for consult: f/u Narrative: Hilda Mann a pleasant 47 year old female presents for evaluation and management of chronic right sided neck pain. Patient has had greater than 3 months of right sided neck pain and headaches without relief from medications and PT/HEP. Patient finding benefit from gabapentin 300mg daily. Pain today 10/21, worsening to moderate to severe at times. Patient had 100% immediate pain relief and functional improvement immediately following right C2-3 C3-4 facet medial branch block #2 working towards thermal RFA cc:: CC: Yolanda Saenz NP Review of Systems ROS Status of ROS 10 or more systems reviewed and unremark able except as noted in history and below Musculoskeletal Reports: neck pain PFSH PFSH Medical History Hyperthyroidism ?E05.90 - Thyrotoxicosis, unspecified without thyrotoxic crisis or storm (ICD-10) Asthma ?J45.909 - Unspecified asthma, uncomplicated (ICD-10) Diabetes ?E11.9 - Type 2 diabetes mellitus without complications (ICD-10) High cholesterol ?E78.00 - Pure hypercholesterolemia, unspecified (ICD-10) HTN (hypertension) ?I10 - Essential (primary) hypertension (ICD-10) Left hip pain ?M25.552 - Pain in left hip (ICD-10) Surgical History History of cholecystectomy ?Z90.49 - Acquired absence of other specified parts of digestive tract (ICD- 10) Previous section ?Z98.891 - History of uterine scar from previous surgery (ICD-10) History of fasciotomy ?Z98.890 - Other specified postprocedural states (ICD-10) History of arthroscopy of right shoulder ?Z98.890 - Other specified postprocedural states (ICD-10) History of decompression of ulnar nerve ?Z98.890 - Other specified postprocedural states (ICD-10) S/P carpal tunnel release ?Z98.890 - Other specified postprocedural states (ICD-10) History of total knee arthroplasty ?Z96.659 - Presence of unspecified artificial knee joint (ICD-10) H/O arthroscopy of shoulder ?Z98.890 - Other specified postprocedural states (ICD-10) Meds Home Medications and Allergies Home Medications Medication Instructions Recorded Confirmed Type atorvastatin 20 mg tablet 20 mg PO DAILY 04/14/23 09/19/23 History budesonide 180 mcg/actuation 1 inh inhalation DAILY 04/14/23 09/19/23 History breath activated powder inhaler (Pulmicort Flexhaler) hydrochlorothiazide 25 mg tablet 25 mg PO DAILY 04/14/23 09/19/23 History losartan 25 mg tablet 50 mg PO DAILY 04/14/23 09/19/23 History metformin 500 mg tablet 500 mg PO DAILY 04/14/23 09/19/23 History venlafaxine 75 mg tablet 75 mg PO DAILY 04/14/23 09/19/23 History methimazole 20 mg tablet 20 mg PO DAILY 04/19/23 09/19/23 History albuterol sulfate 90 mcg/actuation 2 inh inhalation Q4H PRN shortness 07/24/23 09/19/23 History aerosol inhaler of breath or wheezing gabapentin 300 mg capsule 300 mg PO DAILY 07/24/23 09/19/23 History medroxyprogesterone 150 mg/mL 300 mg IM .Q3 Months 07/24/23 09/19/23 History intramuscular suspension (Depo-Provera) Allergies Allergy/AdvReac Type Severity Reaction Status Date / Time vancomycin AdvReac flushing, Verified 09/19/23 07:48 itching Exam Constitutional Documenting provider has reviewed patient's vital signs: yes Common normals: no apparent distress, oriented x3, healthy appearing, alert and well nourished General appearance: cooperative [facility] Common normals: normocephalic, hearing grossly normal bilaterally and moist oral mucous membranes Head and scalp: normocephalic Eye Common normals: PERRL Pupil: PERRL Neck & C-Spine Common normals: full ROM General: normal visual inspection Other: positive right sided facet loading negative radiculopathy strength 5/5 in BUE, sensation intact Chest Common normals: inspection of chest normal Respiratory Common normals: normal respiratory effort, no retractions and no use of accessory muscles Neuro Common normals: oriented x3, CN's II-XII intact bilaterally, moves all extremities, no focal motor deficits, no sensory deficits noted and deep tendon reflexes 2+ bilaterally Sensorium/orientation: alert Motor exam: strength 5/5 throughout and no movement abnormalities noted Psych Common normals: mental status grossly normal, thought process normal, cooperative, affect normal, speech normal and activity/motor behavior normal Speech: normal speech Thought process: normal thought process Results Additional Findings Additional findings: I have checked an OARRS report on this patient today and there are no aberrancies noted in the prescribing history.?? A drug screen was completed and reviewed within the last year, and if there has not been a drug screen completed we ordered one today to monitor higher risk, state monitored pain medication use. As part of providing excellent, safe, comprehensive care, the following was completed at our patient's visit: 1. A medication reconciliation and review to ensure accurate knowledge of current/active medications, including asking our patients to inform us about any [id number] medications or herbal remedies/nutritional supplements/alternative remedies. 2. A review to specifically ensure our patients have had annual screening for: elevated body mass index (BMI), tobacco use, screening for depression, and screening for unhealthy alcohol use. When screening is concerning, patients are provided with education and the specific recommendation to discuss the concerning health issue and treatment options with their primary care provider. Assessment and Plan Assessment and Plan (1) Cervical spondylosis: Assessment and Plan: The patient has had over 3 months of moderate to severe right sided neck pain with functional impairment and inadequate response to conservative care including NSAIDS (unless there are contraindication such as concurrent blood thinners), multiple oral or topical pain medications, and home exercise program/physical therapy.? Patient has completed >6 weeks of guided home exercise program and/or formal physical therapy program without relief of their symptoms.? I have reviewed the imaging of the cervical spondylosis and no red flags were identified.? The imaging reveals radiographic findings consistent with cervical spondylosis We discussed the risks and benefits of the procedure with the patient, and we are NOT planning on using sedation as outlined in the guidelines from Medicare unless there is a documented reason that sedation would be strongly recommended.??The procedure will be completed with fluoroscopic guidance.? (2) Myofascial pain: Plan right C2-3 C3-4 facet thermal RFA under fluoroscopy with IV sedation continue current medications, tolerating well without side effect f/u 1 month after RFA
== END 2023-09-28 11:26 | disposition home or self-care (01) ==
PROVIDERS: PCP Family Medicine; Visit Provider Nurse Practitioner
DX: M47.812 Spondylosis without myelopathy or radiculopathy, cervical region (principal); M79.18 Myalgia, other site
CPT/HCPCS: G0463

== ENCOUNTER 2023-10-30 07:01 | Day surgery (SDC) | payer MEDICAID, SELFPAY ==
--- OUTSIDE RECORDS SUMMARY | 2023-10-30 07:03 | XMS_ITS | CCD ---
Author Name Unknown Address [id number] [place] [address] Organization [facility] Care Team Providers Care Catering Convention Services Manager Name Role Phone LAURY AZAR Primary Care [...] Reaction(s) Facility (2 sources) Vancomycin Drug Allergy [facility] Other (1 source) Vancomycin Drug Allergy 11-03-19 [facility] Repository (1 source) Glycopeptides (Antibiotic); Translations: [VANCOMYCIN ANALOGUES] Propensity to adverse reactions to drug (disorder) 02-08-20 [facility] Repository Medications Current Medications Medication [...] Interpretation Reference Range Facility Follow-Upon 09-11-2023 Follow-Up [id number] Kellie Mann ie 1975 F Date Provider Department Center 09/11/2023 ANU GOTTI MP ORTHO MPORTHO No family history on file Level of Service:29898 [place] OFFICE/OUTPATIENT ESTABLISHED MOD MDM 30 MIN Reason for Visit and Comments: Pain [136] [facility] 36on 08-22-2023 36 Appt was scheduled [facility] 36 Patient received abo ut 4-5 hour relief from the injection, still had joint popping but no pain. Pains back now so wants to know what she's supposed to do now. [facility] Procedure Visiton 08-18-2023 Procedure Visit [id number] Kellie Mann ie 1975 F Date Provider Department [place] 08/18/2023 MICHELLE CHEEK MP ORTHO MPORTHO No family history on file Level of Service:67412 [place] OFFICE/OUTPATIENT NEW LOW MDM 30 MINUTES (25) Reason for Visit and Comments: Injections [186] [facility] 36on 08-15-2023 36 Called patient to reschedule her appt. Due to being out of office. Offered patient 08/18/2023 [facility] 36on 07-24-2023 36 Lvm that pt does not need a prior auth. She just needs to schedule appt with Dr. Fuentes for injection [facility] Follow-Upon 07-10-2023 Follow-Up [id number] Kellie Mann ie 1975 F Date Provider Department Center 07/10/2023 ANU GOTTI MP ORTHO MPORTHO No family history on file Level of Service:29655 [place] OFFICE/OUTPATIENT ESTABLISHED LOW MDM 20-29 MIN (GC) Reason for Visit and Comments: Pain [136] [facility] XR CERVICAL SPINE 2-3 VIEWSo n 11-13-2023 [...] Not Available Office Visiton 05-29-2023 Follow-up visit [id number] Plant,Kellie ie 1975 F Date Provider Department Center 05/29/2023 Yoli3-ANU WILKERSON MP ORTHO MPORTHO No family history on file Level of Service:72230 [place] OFFICE/OUTPATIENT ESTABLISHED MOD MDM 30-39 MIN (25,GC) Reason for Visit and Comments: Pain [136] Normal [facility] MRI Shoulder w/o Lefton 12-12 MRI Shoulder [...] by Stevie Holm on 12/26/2022 1544 Normal [facility] Specialist Glucose Glucometer (BldC) [M ass/Vol]Ordered By: Garcia Sanchez on 11-02-2022 Glucose [Mass/Vol] 104 mg/dL [facility] Comment on above: Random Glucose Refer ence Range is dependent on time and content of last meal. Glucose of more than 200 mg/dL in a nonstressed, ambulatory subject supports the diagnosis of Diabetes Mellitus. Glucose Poct Glucometerson 0 11-02-2022 Commemt1 Glu2: Cleaned Meter [facility] Comment on above: Result Comment: PERF ORMED BY: [place] [id number] PATHOLOGIST COMMUNITY ENGAGEMENT COORDINATOR VICENTE SINGH M.D. Performed By: #### G LULS #### Point of Care testing , Glucose [Mass/Vol] 104 mg/dL Normal [facility] Comment on above: Result Comment: [place] om Glucose Reference Range is dependent on time and content of last meal. Glucose of more than 200 mg/dL in a nonstressed, ambulatory subject supports the diagnosis of Diabetes Mellitus. Performed By: #### G LULS #### Point of Care testing , HCG ( test) Rm salmeron Ql (U)Ordered By: Garcia Sanchez on 11-02-2022 HCG ( test) Ql (U) Negative [facility] HCG,Urineon 11-02-2022 Beta HCG ( test) Ql (U) Negative Normal [facility] Comment on above: Result Comment: PERF ORMED BY: [place] [id number] PATHOLOGIST COMMUNITY ENGAGEMENT COORDINATOR VICENTE SINGH M.D. Performed By: #### U HCG #### [address] No Panel InformationOrdered By: Garcia Sanchez on 11-02-2022 Bedside Glucose Comment Glu2: cleaned meter [facility] Diagnostic Mammogram, Bilate ral w/Ananth (3D)on 07-12-2022 [...] VERY IMPORTANT TO YOUR HEALTH. THE CURRENT [employer] GUIDELINES RECOMMENDS ANNUAL MAMMOGRAPHY BEGINNING AT AGE 40 THIS FACILITY USES A REMINDER SYSTEM TO ENSURE ALL PATIENTS RECEIVE REMINDER NOTIFICATIONS AT THE APPROPRIATE TIME BASED ON THE RECOMMENDATIONS OF THIS EXAM. Report reported and signed by Juaquin Bullock on 07/12/2022 1546 Normal [facility] Specialist US Breast Limited, Lefton US Breast Limited, Left Please see right breast ultrasound report. Report reported and signed by Juaquin Bullock on 07/12/2022 1546 Normal [facility] SCREENING MAMMOGRAM W/ANANTH, BILATERAL*on 07-05-2022 SCREENING [...] Visible on only one projection. Asymmetries that carry out clerk to be summation artifact are benign (BI-RADS 2). The BI-RADS [place] offers guidance regarding the other categories of [...] VERY IMPORTANT TO YOUR HEALTH. THE CURRENT [place] AND [employer]WORK GUIDELINES RECOMMENDS ANNUAL MAMMOGRAPHY BEGINNING AT AGE 40 THIS FACILITY USES A REMINDER SYSTEM TO ENSURE ALL PATIENTS RECEIVE REMINDER NOTIFICATIONS AT THE APPROPRIATE TIME BASED ON THE RECOMMENDATIONS OF THIS EXAM. Report reported and signed by Juaquin Bullock on 07/05/2022 1525 Normal [facility] Chairman & Chief Executive Officer Operative Reporton 2 Operative Report MR#: [id number] [facility] Pt. Name: Hilda Mann Room [...] 2. Decompression of ulnar nerve, left elbow. IT CONSULTING MANAGER: Juan Quintanilla M.D. ANESTHESIA: General. INDICATION FOR [...] far as we safely could using an [place] retractor to expose the proximal end and looked the proximal skin edge. The nerve was then released through the cubital tunnel releasing Magana's ligament and the fascia over the cubital tunnel. The nerve was free distally as the FCU fascias, both superficial and deep were split. Again, we used an [place] retractor to lift the distal end of [...] Duval M.D. Date Trans: 12/16/2021 06:56 P/arvind [id number] cc: Laury Azar M.D. [address] [place] [address] Dhruv Paz, 62 Kim Billings P. OAnil Levy (more content not included)... Normal [facility] POC GLUCOSE LABon 12-16-2021 Glucose [Mass/Vol] 156 mg/dL High 70-100 [facility] Comment on above: Performed By: #### [id number] #### [facility] [address] [place] [address], [facility] POC URINE PREGNANCYon 2021 Beta HCG ( test) Ql (U) Negative Normal NEGATIVE [facility] Comment on above: Performed By: #### 8 [id number] #### [facility] [address] [place] [address], [facility] Vital Signs Date Time Vital Sign Value Performing Clinician Facility 11-02-2022 09:58-0400 Diastolic blood pressure 102 mm[Hg] MD Laury Azar Work Phone: [facility] 11-02-2022 09:58-0400 Heart rate 71 /min MD Laury Azar Work Phone: [facility] 11-02-2022 09:58-0400 Respiratory rate 16 /min MD Laury Azar Work Phone: [facility] 11-02-2022 09:58-0400 SaO2% (BldA) [Mass fraction] 100 % MD Laury Azar Work Phone: [facility] 11-02-2022 09:58-0400 Systolic blood pressure 161 mm[Hg] MD Laury Azar Work Phone: [facility] 11-02-2022 08:27-0400 Body height 165.1 cm MD Laury Azar Work Phone: [facility] 11-02-2022 08:27-0400 Body weight 95.25 kg MD Laury Azar Work Phone: [facility] 05-20-2021 15:45-0400 Body height 165.1 cm Sandoval Solano Other [facility] Other 05-20-2021 15:45-0400 Body mass index (BMI) [Ratio] 38.94 kg/m2 Sandoval Solano Other [facility] Other 05-20-2021 15:45-0400 Body temperature 97.9 [degF] Sandoval Solano Other [facility] Other 05-20-2021 15:45-0400 Body weight 106.14 kg Sandoval Solano Other [facility] Other 05-20-2021 15:45-0400 Diastolic blood pressure 85 mm[Hg] Sandoval Solano Other [facility] Other 05-20-2021 15:45-0400 Systolic blood pressure 127 mm[Hg] Sandoval Solano Other [facility] Other Encounters Encounter Date Encounter Type Care Provider Facility Start: 09-11-2023 ambulatory ANU [facility] Start: 08-18-2023 ambulatory MICHELLE ANAND [facility] Start: 08-04-2023 End: 08-05-2023 ambulatory CHRIS WHITMORE Not Available Start: 08-01-2023 End: 08-01-2023 ambulatory CONNOR J ELEANOR Not Available Start: 07-27-2023 End: 07-27-2023 ambulatory CHRIS WHITMORE Not Available Start: 07-20-2023 End: 07-20-2023 ambulatory CHRIS WHITMORE Not Available Start: 07-18-2023 End: 07-18-2023 ambulatory CONNOR J ELEANOR Not Available Start: 07-14-2023 End: 07-14-2023 ambulatory CONNOR J ELEANOR Not Available Start: 07-10-2023 End: 07-10-2023 ambulatory ANU [facility] Start: 06-26-2023 End: 06-27-2023 ambulatory LAURY AZAR Not Available Start: 06-21-2023 End: 06-22-2023 ambulatory ANU [facility] Start: 05-29-2023 ambulatory ANU [facility] Start: 01-25-2023 ambulatory Eleuterio Urbina DDS Healt [facility] Start: 11-02-2022 End: 11-02-2022 ambulatory Garcia Sanchez Facility:[facility] Start: 11-02-2022 End: 11-02-2022 Admission to same day surgery center MD Laury Azar Work Phone: [facility] Work Phone: Start: 11-02-2022 End: 03-22-2023 ambulatory MD Laury Azar Work Phone: [facility] Work Phone: Start: 07-05-2022 End: 07-05-2022 ambulatory Garcia Sanchez Other [facility] Other Start: 07-05-2022 Telephone encounter Garcia CAPUTO [employer] Delivery Vehicle Team Technician Start: 12-16-2021 End: 12-17-2021 ambulatory LAURY AZAR Facility:[facility] Start: 10-25-2021 End: 10-30-2021 ambulatory REFERRED SELF Facility:[facility] Start: 05-20-2021 Office outpatient vi sit 25 minutes Sandoval SILVA Infectious Disease Procedures Date Procedure Procedure Detail Performing Clinician Start: 11-02-2022 Colonoscopy MD Laury resendez Work Phone: Plan of Treatment Date Care Activity Detail Author Start: 11-02-2022 [facility] Payers Date Payer Category Payer Medicaid [id number] 2022 Self-pay [id number] 1975 Unknown [id number] 2.16.8 [id number] 1975 Unknown [id number] 2.16.8 [id number] 1975 Unknown [id number] 2.16.840 .[id number] 1975 Unknown [id number] 2.16.840 .1.543844.3.579.2.9 1975 Unknown [id number] 2.16.840 .1.155043.3.579.2.1258 1975 Unknown [id number] 2.16.840 .1.296805.3.579.2.9 1975 Unknown [id number] 2.16.840 .1.151972.3.579.2.9 1975 Unknown [id number] 2.16.840 .1.570895.3.579.2.1259 1975 Unknown [id number] 2.16.840 .1.854611.3.579.2.1259 1975 Unknown [id number] 2.16.840 .1.309767.3.579.2.1259 Unknown [id number] Unknown [place] [id number] Unknown [id number] 2.16.8 [id number] Social History Date Type Detail Facility Unknown if ever smoked [facility] Other Sex Assigned At Sex Assigned At Bir th [facility] Other Start: 11-02-2022 Tobacco smoking status NHIS Never smoked tobacco (finding) [facility] Start: 1975 Sex Assigned At Female F [facility] Goals Date Patient Goal Desired Activity [...] was obtained in clinic. IDA MERRITT MS3 [facility] 08-18-2023 Note Sports Medicine Subj ective Injections of the Left Hip HPI: Hidla Mann is a 47 y.o. year old [...] pt reports she did not have any fdc relief with this Blood thinners: denies Allergy to Anesthetics: denies Hx of Diabetes: Last A1c of 5.7% MRA Arthogram 04/19/23 FINDINGS: Contrast fills the hip joint. No visualized fracture, dislocation, subluxation or osseous lesion. The acetabular labrum or articular cartilage of the femoral head and acetabulum exhibit no chondral or osteochondral defect. On the large vvvci-io-cbig coronal imaging; the pubic symphysis, sacroiliac joints [...] provider as directe (more content not included)... [facility] 07-10-2023 Note Attestation signed by Anu Wilkerson [...] be an additional personal documentation from me. [facility] 05-29-2023 Note Attestation signed by [...] repair Joseph Campoverde MD PGY-5 Orthopedic Surgery [facility] By using the attestations below, [...] be an additional personal documentation from me. [facility] 05-29-2023 Note Subjective Chief complaint: [...] repair Joseph Campoverde MD PGY-5 Orthopedic Surgery [facility] By using the attestations below, [...] and draped in the usual sterile fashion. [facility] 11-02-2022 Procedure [address] [facility] 07-12-2022 Note FINDINGS: Sonographic evaluation of both breasts demonstrates no worrisome cystic or solid mass lesions. Reference is made to the same day mammogram and recent mammogram of July 05, 2022. IMPRESSION: BI-RADS 3- Probably Benign. Short term interval follow up. Recommend follow up bilateral mammography in 6 months. Report reported and signed by Juaquin Bullock on 07/12/2022 1545 [facility] Chairman & Chief Executive Officer 05-20-2021 Evaluation note Encounter Date Diagnosis Assessment Notes May, History of MRSA infection (ICD-10 - Z86.14) May, Arthritis of knee (ICD-10 - M17.10) [facility] Other [facility] Other Evaluation noteNo assessment information available [facility] Work Phone: History and physical note Author Garcia Sanchez [facility] November 02, 2022 9:14am Note Date/Time November 02, 2022 9:1 4am [facility] [address] [place] [address] Gastroenterology H&P Signed Patient: Hilda Mann MR#: [id number] : 1975 Acct:[id number] Age/Sex: 47 / F Adm Date: 3 Loc: Room: Type: [facility] Attending Dr: Garcia Sanchez MD Copies to: [...] <Electronically signed by Garcia Sanchez MD> 11/02/22913 [facility] Work Phone: History general Narrative - Reported* Type Description Date Medical History MRSA Medical History HTN Surgical History BILATERAL KNEES Surgical History C SECTION Surgical History BILATERAL FEET Surgical History R ELBOW [facility] Other Hospital Discharge instructions Additional Instructions DISCHARGE [...] colonoscopy. -Follow up with PCP. -Office number [phone].[facility] Work Phone: Summary Purpose Family History [...] section and content) DATE CREATED AUTHOR 12/22/2021 [facility] DATE CREATED AUTHOR AUTHOR'S ORGANIZ ATION 11/11/2022 [facility] DATE CREATED AUTHOR AUTHOR'S ORGANIZ ATION 12/27/2022 [facility] dical Specialist DATE CREATED AUTHOR AUTHOR'S ORGANIZ ATION 03/18/2023 [facility] DATE CREATED AUTHOR AUTHOR'S ORGANIZ ATION 08/09/2023 [facility] dical Specialists EPIC DATE CREATED AUTHOR AUTHOR'S ORGANIZ ATION 09/16/2023 [facility] REASON FOR VISIT (unrecogniz ed section and [...] BE BASED ON THE PRIMARY CLINICAL RECORDS. [facility] [employer] provides no warranty or guarantee of the accuracy or completeness of information in this document.
[2023-10-30 07:16] VITALS: BP 142/97; PULSE 98; RESP 16; TEMP 36.1; O2SAT 95
[2023-10-30 07:21] LABS: Glucometer 162 mg/dL (74-106)
[2023-10-30] MEDS: 0.9 % SODIUM CHLORIDE 500 ML IV (07:23)
--- NOTE | 2023-10-30 08:05 | P.ON_ITS ---
Date of procedure: 10/30/23 Pre-op diagnosis: Cervical spondylosis Post-op diagnosis: same as pre-op Procedure: Procedure: Right C2-3, 3-4 radiofrequency ablation Medications: Bupivacaine 0.25% 3cc, lidocaine 2% 3cc, dexamethasone 10mg The patient was seen and examined in the preoperative holding area.? The site was marked.? Written informed consent was obtained and placed on the chart.? The patient was brought to the medical procedure unit and placed in the prone position.? A timeout was completed verifying correct patient, procedure, positioning, and special requirements.? The skin overlying the target points, the designated medial branch, were prepped and draped in the usual sterile fashion.? The target point was achieved with a 20-gauge 15 cm with a 10 mm curved active tip radiofrequency cannula under direct fluoroscopic visualization.? The needle was inserted at level C2 on the right side. Needle tip position was confirmed with lateral fluoroscopic position.? Motor stimulation was carried out at 2 Hz up to 5 volts with the absence of extremity activity.? This was repeated at level C3, 4 on right side.?? Sensory stimulation was carried out.? Concordant pain was realized at the above- mentioned sites.? Then radiofrequency lesioning was carried out times 90 seconds at 80 degrees times 2 lesions at each level.? The radiofrequency probe was removed prior to cannula removal.? The above-mentioned injectate was placed in 1 mL increments.? The needle was removed.? Insertion sites were covered.? The patient was taken to the postoperative recovery area and monitored for an appropriate length of time before being found suitable for discharge in the company of a responsible adult. Anesthesia: Moderate Sedation Surgeon: Tiffanie Morris Pathology: none sent Condition: stable Disposition: no change
[2023-10-30] MEDS: DEXAMETHASONE SOD PHOS 10 MG/ML VIAL INJ (08:06)
[2023-10-30] MEDS: BUPIVACAINE HCL 0.25% PF 25 MG/10 ML VIAL 2 ML INJ (08:06)
[2023-10-30] MEDS: LIDOCAINE HCL 2% 400 MG/20 ML MDV 7 ML INJ (08:07)
[2023-10-30 08:08] VITALS: BP 157/116; PULSE 113; RESP 16; TEMP 36.4; O2SAT 98
[2023-10-30 08:16] VITALS: BP 130/101; PULSE 99; RESP 97; TEMP 36.4; O2SAT 97
== END 2023-10-30 08:33 | disposition home or self-care (01) ==
PROVIDERS: PCP Family Medicine; Visit Provider Anesthesiology
PROC: (CPT 1992; principal; 2023-10-30 07:50)
DX: M47.812 Spondylosis without myelopathy or radiculopathy, cervical region (principal)
CPT/HCPCS: 36415; 64633; 64634; 82948; J1100; J2704

== ENCOUNTER 2023-12-06 08:56 | Outpatient (OUT) | payer MEDICAID, SELFPAY ==
--- NOTE | 2023-12-06 09:09 | PM.CN ---
Consult Note: HPI Data of Consult Patient: known to practice within the last 3 years Consult date: 08/17/23 Requesting Physician: Yolanda Saenz NP Primary Care Provider: TIMA GUAJARDO Consult Narrative Reason for consult: f/u Narrative: Hilda Mann a pleasant 47 year old female presents for evaluation and management of chronic right sided neck pain. Patient has had greater than 3 months of right sided neck pain and headaches without relief from medications and PT/HEP. Patient finding benefit from gabapentin 300mg daily. Pain today 0/10, worsening to moderate to mild at times. Patient had 100% immediate pain relief and functional improvement following right C2-3 C3-4 facet RFA. cc:: CC: Yolanda Saenz NP Review of Systems ROS Status of ROS 10 or more systems reviewed and unremarkable except as noted in history and below PFSH [facility] Medical History Hyperthyroidism ?E05.90 - Thyrotoxicosis, unspecified without thyrotoxic crisis or storm (ICD-10) Asthma ?J45.909 - Unspecified asthma, uncomplicated (ICD-10) Diabetes ?E11.9 - Type 2 diabetes mellitus without complications (ICD-10) High cholesterol ?E78.00 - Pure hypercholesterolemia, unspecified (ICD-10) HTN (hypertension) ?I10 - Essential (primary) hypertension (ICD-10) Left hip pain ?M25.552 - Pain in left hip (ICD-10) Surgical History History of cholecystectomy ?Z90.49 - Acquired absence of other specified parts of digestive tract (ICD-10) Previous section ?Z98.891 - History of uterine scar from previous surgery (ICD-10) History of fasciotomy ?Z98.890 - Other specified postprocedural states (ICD-10) History of arthroscopy of right shoulder ?Z98.890 - Other specified postprocedural states (ICD-10) History of decompression of ulnar nerve ?Z98.890 - Other specified postprocedural states (ICD-10) S/P carpal tunnel release ?Z98.890 - Other specified postprocedural states (ICD-10) History of total knee arthroplasty ?Z96.659 - Presence of unspecified artificial knee joint (ICD-10) H/O arthroscopy of shoulder ?Z98.890 - Other specified postprocedural states (ICD-10) Meds Home Medications and Allergies Home Medications ?Medication ?Instructions ?Recorded ?Confirmed ?Type atorvastatin 20 mg tablet 20 mg PO DAILY 04/14/23 10/30/23 History budesonide 180 mcg/actuation 1 inh inhalation DAILY 04/14/23 10/30/23 History breath activated powder inhaler (Pulmicort Flexhaler) hydrochlorothiazide 25 mg tablet 25 mg PO DAILY 04/14/23 10/30/23 History losartan 25 mg tablet 50 mg PO DAILY 04/14/23 10/30/23 History metformin 500 mg tablet 500 mg PO DAILY 04/14/23 10/30/23 History venlafaxine 75 mg tablet 75 mg PO DAILY 04/14/23 10/30/23 History methimazole 20 mg tablet 20 mg PO DAILY 04/19/23 10/30/23 History gabapentin 300 mg capsule 300 mg PO DAILY 07/24/23 10/30/23 History medroxyprogesterone 150 mg/mL 300 mg IM .Q3 Months 07/24/23 10/30/23 History intramuscular suspension (Depo-Provera) Allergies Allergy/AdvReac Type Severity Reaction Status Date / Time vancomycin AdvReac flushing, Verified 10/30/23 07:10 itching Exam Constitutional Documenting provider has reviewed patient's vital signs: yes Common normals: no apparent distress, oriented x3, healthy appearing, alert and well nourished General appearance: cooperative [facility] Common normals: normocephalic, hearing grossly normal bilaterally and moist oral mucous membranes Head and scalp: normocephalic Eye Common normals: PERRL Pupil: PERRL Neck & C-Spine Common normals: full ROM General: normal visual inspection Other: negative right sided facet loading negative radiculopathy strength 5/5 in BUE, sensation intact Chest Common normals: inspection of chest normal Respiratory Common normals: normal respiratory effort, no retractions and no use of accessory muscles Neuro Common normals: oriented x3, CN's II-XII intact bilaterally, moves all extremities, no focal motor deficits, no sensory deficits noted and deep tendon reflexes 2+ bilaterally Sensorium/orientation: alert Motor exam: strength 5/5 throughout and no movement abnormalities noted Psych Common normals: mental status grossly normal, thought process normal, cooperative, affect normal, speech normal and activity/motor behavior normal Speech: normal speech Thought process: normal thought process Results Additional Findings Additional findings: If on a controlled substance or opioids, I have checked an [place] report on this patient and there are no aberrancies noted in the prescribing history.??If on a controlled substance or opioid a drug screen was completed and reviewed within the last year, and if there has not been a drug screen completed we ordered one today to monitor higher risk, state monitored pain medication use. As part of providing excellent, safe, comprehensive care, the following was completed at our patient's visit: 1. A medication reconciliation and review to ensure accurate knowledge of current/active medications, including asking our patients to inform us about any raor-lxn-zgyffal medications or herbal remedies/nutritional supplements/alternative remedies. 2. A review to specifically ensure our patients have had annual screening for screening for depression, screening for tobacco use, and screening for unhealthy alcohol use. For concerning screenings had a discussion with the patient, provided patient education, and recommended follow-up with primary care provider when appropriate. If patient noted with a risk of falling, they received education on strength, gait, and balance training to prevent future risk of falling. Assessment and Plan Assessment and Plan (1) Cervical spondylosis: Assessment and Plan: 100% improvement in pain and function ongoing (2) Myofascial pain: Plan decrease baclofen 5-10mg once daily PRN, typically takes HS continue gabapentin 300mg daily, wean in the future f/u 3 months, sooner if needed
--- OUTSIDE RECORDS SUMMARY | 2023-12-06 09:18 | XMS_ITS | CCD ---
Author Organization [facility] Care Team Providers Care Cob Sawyer Name Role Phone LAURY AZAR Primary Care [...] DDS Attending Unavailable ANU WILKERSON Referring Unavailable NILO, ANU Attending Unavailable KEVIN CLINTON Referring Unavailable NILO, ANU Attending Unavailable MICHELLE ANAND Attending Unavailable NILO, ANU Attending Unavailable Arturo PARRY, Tiffanie Mcclure Attending Unavailable CASANDRA, LAURY F Attending Unavailable LAYNE MCDONALD Attending Unavailable LAYNE MCDONALD Referring Unavailable CONNOR WEBSTER Attending Unavailable CASANDRA, LAURY F Referring Unavailable ELEANORCONNOR OV Attending Unavailable CASANDRA, LAURY F Referring Unavailable WHITMORECRHIS Attending Unavailable CASANDRA, LAURY F Referring Unavailable CASANDRA, LAURY F Attending Unavailable CASANDRA, LAURY F Referring Unavailable WHITMORECHRIS Attending Unavailable CASANDRA, LAURY F Referring Unavailable ELEANORCONNOR BOLAÑOS Attending Unavailable CASANDRA, LAURY F Referring Unavailable WHITMORE, CHRIS Attending Unavailable CASANDRA, LAURY F Referring Unavailable Allergies Allergy Classification Reported Allergen(s) Allergy Type Date of Onset Reaction(s) Facility (2 sources) Vancomycin Drug Allergy [facility] Other (1 source) Vancomycin Drug Allergy 11-03-19 [facility] Repository (1 source) Glycopeptides (Antibiotic); Translations: [VANCOMYCIN ANALOGUES] Propensity to adverse reactions to drug (disorder) 02-08-20 [facility] Repository Medications Current Medications Medication [...] Interpretation Reference Range Facility Follow-Upon 09-11-2023 Follow-Up [id number] Kellie Mann ie 1975 F Date Provider Department [place] 09/11/2023 ANU GOTTI MP ORTHO MPORTHO No family history on file Level of Service:19303 OK OFFICE/OUTPATIENT ESTABLISHED MOD MDM 30 MIN Reason for Visit and Comments: Pain [136] [facility] 36on 08-22-2023 36 Appt was scheduled [facility] 36 Patient received abo ut 4-5 hour relief from the injection, still had joint popping but no pain. Pains back now so wants to know what she's supposed to do now. [facility] Procedure Visiton 08-18-2023 Procedure Visit [id number] Kellie Mann 1975 F Date Provider Department [place] 08/18/2023 MICHELLE CHEEK MP ORTHO MPORTHO No family history on file Level of Service:91042 [place] OFFICE/OUTPATIENT NEW LOW MDM 30 MINUTES (25) Reason for Visit and Comments: Injections [186] [facility] 36on 08-15-2023 36 Called patient to reschedule her appt. Due to being out of office. Offered patient 08/18/2023 [facility] 36on 07-24-2023 36 Lvm that pt does not need a prior auth. She just needs to schedule appt with Dr. Fuentes for injection [facility] Follow-Upon 07-10-2023 Follow-Up [id number] Kellie Mann ie 1975 F Date Provider Department [place] 07/10/2023 ANU GOTTI MP ORTHO MPORTHO No family history on file Level of Service:65034 OK OFFICE/OUTPATIENT ESTABLISHED LOW MDM 20-29 MIN (GC) Reason for Visit and Comments: Pain [136] [facility] XR CERVICAL SPINE 2-3 VIEWSo n [...] Not Available Office Visiton 05-29-2023 Follow-up visit [id number] Mackenzie,Shell ie 1975 F Date Provider Department Center 05/29/2023 ANU GOTTI MP ORTHO MPORTHO No family history on file Level of Service:21092 OK OFFICE/OUTPATIENT ESTABLISHED MOD MDM 30-39 MIN (25,GC) Reason for Visit and Comments: Pain [136] Normal [facility] MRI Shoulder w/o Lefton 05 [...] by Stevie Holm on 12/26/2022 1544 Normal [facility] Glucose Glucometer (BldC) [M ass/Vol]Ordered By: Garcia Sanchez on 11-02-2022 Glucose [Mass/Vol] 104 mg/dL [facility] Comment on above: Random Glucose Refer ence Range is dependent on time and content of last meal. Glucose of more than 200 mg/dL in a nonstressed, ambulatory subject supports the diagnosis of Diabetes Mellitus. Glucose Poct Glucometerson 0 11-02-2022 Commemt1 Glu2: Cleaned Meter [facility] Comment on above: Result Comment: PERF ORMED BY: [place] [address] PATHOLOGIST RAILWAY TRACK WORKER VICENTE SINGH M.D. Performed By: #### G LULS #### Point of Care testing , Glucose [Mass/Vol] 104 mg/dL Normal [facility] Comment on above: Result Comment: [place] om Glucose Reference Range is dependent on time and content of last meal. Glucose of more than 200 mg/dL in a nonstressed, ambulatory subject supports the diagnosis of Diabetes Mellitus. Performed By: #### G LULS #### Point of Care testing , HCG ( test) IA.rapi d Ql (U)Ordered By: Garcia Sanchez on 11-02-2022 HCG ( test) Ql (U) Negative [facility] HCG,Urineon 11-02-2022 Beta HCG ( test) Ql (U) Negative Normal [facility] Comment on above: Result Comment: PERF ORMED BY: [place] [address] PATHOLOGIST RAILWAY TRACK WORKER VICENTE SINGH M.D. Performed By: #### U HCG #### [address] No Panel InformationOrdered By: Garcia Sanchez on 11-02-2022 Bedside Glucose Comment Glu2: cleaned meter [facility] Diagnostic Mammogram, Bilate ral w/Ananth [...] VERY IMPORTANT TO YOUR HEALTH. THE CURRENT [employer] GUIDELINES RECOMMENDS ANNUAL MAMMOGRAPHY BEGINNING AT AGE 40 THIS FACILITY USES A REMINDER SYSTEM TO ENSURE ALL PATIENTS RECEIVE REMINDER NOTIFICATIONS AT THE APPROPRIATE TIME BASED ON THE RECOMMENDATIONS OF THIS EXAM. Report reported and signed by Juaquin Bullock on 07/12/2022 1546 Normal [facility]ist US Breast Limited, Lefton US Breast Limited, Left Please see right breast ultrasound report. Report reported and signed by Juaquin Bullock on 07/12/2022 1546 Normal [facility] SCREENING MAMMOGRAM W/ANANTH, BILATERAL*on 07-05-2022 SCREENING MAMMOGRAM [...] Visible on only one projection. Asymmetries that income tax return preparer to be summation artifact are benign (BI-RADS 2). The BI-RADS Winston offers guidance regarding the other categories of [...] VERY IMPORTANT TO YOUR HEALTH. THE CURRENT [employer] GUIDELINES RECOMMENDS ANNUAL MAMMOGRAPHY BEGINNING AT AGE 40 THIS FACILITY USES A REMINDER SYSTEM TO ENSURE ALL PATIENTS RECEIVE REMINDER NOTIFICATIONS AT THE APPROPRIATE TIME BASED ON THE RECOMMENDATIONS OF THIS EXAM. Report reported and signed by Juaquin Bullock on 07/05/2022 1525 Normal [facility] Liv[employer] Nutrition Territory Manager Operative Reporton 2 Operative Report MR#: [id number] S [facility] Pt. Name: Hilda Mann Room [...] 2. Decompression of ulnar nerve, left elbow. LANDMAN: Juan Quintanilla M.D. ANESTHESIA: General. INDICATION FOR [...] far as we safely could using an [employer]ysmith retractor to expose the proximal end and looked the proximal skin edge. The nerve was then released through the cubital tunnel releasing Magana's ligament and the fascia over the cubital tunnel. The nerve was free distally as the FCU fascias, both superficial and deep were split. Again, we used an Army-Ladysmith retractor to lift the distal end of [...] Duval M.D. Date Trans: 12/16/2021 06:56 P/arvind [id number] cc: Laury Azar M.D. [address] [place] [address] Dhruv Paz DO [address] P. OAnil Levy (more content not included)... Normal [facility] POC GLUCOSE LABon 12-16-2021 Glucose [Mass/Vol] 156 mg/dL High 70-100 [facility] Comment on above: Performed By: #### [id number] #### [facility] [address] [facility]. [address] POC URINE PREGNANCYon 2021 Beta HCG ( test) Ql (U) Negative Normal NEGATIVE [facility] Comment on above: Performed By: #### [id number] #### [facility] [address] Vital Signs Date Time Vital Sign Value Performing Clinician Facility 11-02-2022 09:58-0400 Diastolic blood pressure 102 mm[Hg] MD Laury Azar Work Phone: [facility] 11-02-2022 09:58-0400 Heart rate 71 /min MD Laury Azar Work Phone: [facility] 11-02-2022 09:58-0400 Respiratory rate 16 /min MD Laury Azar Work Phone: [facility] 11-02-2022 09:58-0400 SaO2% (BldA) [Mass fraction] 100 % MD Laury Azar Work Phone: [facility] 11-02-2022 09:58-0400 Systolic blood pressure 161 mm[Hg] MD Laury Azar Work Phone: [facility] 11-02-2022 08:27-0400 Body height 165.1 cm MD Laury Azar Work Phone: [facility] 11-02-2022 08:27-0400 Body weight 95.25 kg MD Laury Azar Work Phone: [facility] 05-20-2021 15:45-0400 Body height 165.1 cm Sandoval Solano Other [facility] Other 05-20-2021 15:45-0400 Body mass index (BMI) [Ratio] 38.94 kg/m2 Sandoval Solano Other [facility] Other 05-20-2021 15:45-0400 Body temperature 97.9 [degF] Sandoval Solano Other [facility] Other 05-20-2021 15:45-0400 Body weight 106.14 kg Sandoval Solano Other [facility] Other 05-20-2021 15:45-0400 Diastolic blood pressure 85 mm[Hg] Sandoval Solano Other [facility] Other 05-20-2021 15:45-0400 Systolic blood pressure 127 mm[Hg] Sandoval Solano Other [facility] Other Encounters Encounter Date Encounter Type Care Provider Facility Start: 11-21-2023 End: 11-22-2023 ambulatory LAYNE MCDONALD Not Available Start: 10-30-2023 End: 10-31-2023 ambulatory Tiffanie Morris MD Facility: [facility] Start: 10-10-2023 End: 10-10-2023 ambulatory LAURY Mickey CASANDRA Not Available Start: 09-11-2023 ambulatory [facility] Start: [facility]: 08-04-2023 End: 08-05-2023 ambulatory CHRIS WHITMORE Not Available Start: 08-01-2023 End: 08-01-2023 ambulatory CONNOR J ELEANOR Not Available Start: 07-27-2023 End: 07-27-2023 ambulatory CHRIS WHITMORE Not Available Start: 07-20-2023 End: 07-20-2023 ambulatory CHRIS WHITMORE Not Available Start: 07-18-2023 End: 07-18-2023 ambulatory CONNOR J ELEANOR Not Available Start: 07-14-2023 End: 07-14-2023 ambulatory CONNOR J ELEANOR Not Available Start: 07-10-2023 End: 07-10-2023 ambulatory [facility] Start: 06-26-2023 End: 06-27-2023 ambulatory LAURY Arevalo CASANDRA Not Available Start: 06-21-2023 End: 06-22-2023 ambulatory [facility] Start: 05-29-2023 ambulatory [facility] Start: 01-25-2023 [facility] Start: 11-02-2022 End: 11-02-2022 ambulatory Garcia Sanchez Facility:[facility] Start: 11-02-2022 End: 11-02-2022 Admission to same day surgery center MD Laury Azar Work Phone: [facility] Work Phone: Start: 11-02-2022 End: 11-02-2022 ambulatory MD Laury Azar Work Phone: [facility] Work Phone: Start: 07-05-2022 End: 07-05-2022 ambulatory Garcia Sanchez Other [facility] Other Start: 07-05-2022 Telephone encounter Garcia CAPUTO G Fan Runner Start: 12-16-2021 End: 12-17-2021 ambulatory LAURY AZAR Facility:[facility] Start: 10-25-2021 End: 10-30-2021 ambulatory REFERRED SELF Facility:[facility] Start: 05-20-2021 Office outpatient visit 25 minutes Sandoval SILVA Infectious Disease Procedures Date Procedure Procedure Detail Performing Clinician Start: 11-02-2022 Colonoscopy MD Laury resendez Work Phone: Plan of Treatment Date Care Activity Detail Author Start: 11-02-2022 [facility] Payers Date Payer Category Payer Private Health Insurance 2022 Medicaid [id number] 2022 Self-pay [id number] 1975 Unknown [id number] 2.16.8 [id number] 1975 Unknown [id number] 2.16.8 40.1.108507.3.579.2.647 1975 Unknown [id number] 2.16. 840.1.763432.3.579.2.196 1975 Unknown [id number] 2.16.84 0.1.727565.3.579.2.1259 1975 Unknown [id number] 2.16.84 0.1.834278.3.579.2.9 1975 Unknown [id number] 2.16.84 0.1.589415.3.579.2.9 1975 Unknown [id number] 2.16.840 .1.205472.3.579.2.9 1975 Unknown [id number] 2.16.840 .1.923140.3.579.2.9 1975 Unknown [id number] 2.16.840 .1.333861.3.579.2.1258 1975 Unknown [id number] 2.16.840 .1.168760.3.579.2.1258 1975 Unknown [id number] 2.16.840 .1.788157.3.579.2.9 1975 Unknown [id number] 2.16.840 .1.938177.3.579.2.9 1975 Unknown [id number] 2.16.840 .1.953078.3.579.2.9 1975 Unknown [id number] 2.16.840 .1.210834.3.579.2.9 Unknown [id number] Unknown [place] [id number] Unknown [id number] 2.16.8 40.1.292339.3.579.2.531 Social History Date Type Detail Facility Unknown if ever smoked [facility] Other Sex Assigned At Sex Assigned At Bir th [facility] Other Start: 11-02-2022 Tobacco smoking status NHIS Never smoked tobacco (finding) [facility] Start: 1975 Sex Assigned At Female F [facility] Goals Date Patient Goal Desired [...] was obtained in clinic. IDA MERRITT MS3 [facility] 08-18-2023 Note Sports Medicine Subj [...] pt reports she did not have any intermediate relief with this Blood thinners: denies Allergy to Anesthetics: denies Hx of Diabetes: Last A1c of 5.7% MRA Arthogram 04/19/23 FINDINGS: Contrast fills the hip joint. No visualized fracture, dislocation, subluxation or osseous lesion. The acetabular labrum or articular cartilage of the femoral head and acetabulum exhibit no chondral or osteochondral defect. On the large krakk-gm-wrut coronal imaging; the pubic symphysis, sacroiliac joints [...] will follow up with referring provider as vilmae (more content not included)... [facility] 07-10-2023 Note Attestation signed by [...] be an additional personal documentation from me. [facility] 05-29-2023 Note Attestation signed by [...] repair Joseph Campoverde MD PGY-5 Orthopedic Surgery [facility] By using the attestations below, the [...] be an additional personal documentation from me. [facility] 05-29-2023 Note Subjective Chief complaint: [...] repair Joseph Campoverde MD PGY-5 Orthopedic Surgery [facility] By using the attestations below, the [...] and draped in the usual sterile fashion. [facility] 11-02-2022 Procedure note [facility] 07-12-2022 Note FINDINGS: Sonographic evaluation of both breasts demonstrates no worrisome cystic or solid mass lesions. Reference is made to the same day mammogram and recent mammogram of July 05, 2022. IMPRESSION: BI-RADS 3- Probably Benign. Short term interval follow up. Recommend follow up bilateral mammography in 6 months. Report reported and signed by Juaquin Bullock on 07/12/2022 [id number] [facility] [employer] Territory Manager 05-20-2021 Evaluation note Encounter Date Diagnosis Assessment Notes May, History of MRSA infection (ICD-10 - Z86.14) May, Arthritis of knee (ICD-10 - M17.10) [facility] [employer] Other Evaluation noteNo InformationNortG[facility] [employer] Other Evaluation noteNo assessment information available [facility] Work Phone: History and physical note Author Garcia Sanchez [facility] November 02, 2022 9:14am Note Date/Time November 02, 2022 9:1 4am [facility] [address] [place] [address] Gastroenterology H&P Signed Patient: Hilda Mann MR#: [id number] : 1975 Acct:[id number] Age/Sex: 47 / F Adm Date: 3 Loc: Room: Type: [facility] Attending Dr: Garcia Sanchez [...] <Electronically signed by Garcia Sanchez MD> 11/02/22913 [facility] Work Phone: History general Narrative - Reported* Type Description Date Medical History MRSA Medical History HTN Surgical History BILATERAL KNEES Surgical History C SECTION Surgical History BILATERAL FEET Surgical History R ELBOW [facility] Other Hospital Discharge instructions Additional Instructions DISCHARGE [...] colonoscopy. -Follow up with PCP. -Office number [phone].[facility] Work Phone: Summary Purpose Family History No [...] section and content) DATE CREATED AUTHOR 12/22/2021 [facility] DATE CREATED AUTHOR AUTHOR'S ORGANIZ ATION 11/11/2022 [facility] DATE CREATED AUTHOR AUTHOR'S ORGANIZ ATION 12/27/2022 [facility] DATE CREATED AUTHOR AUTHOR'S ORGANIZ ATION 03/18/2023 [facility] DATE CREATED AUTHOR AUTHOR'S ORGANIZ ATION 09/16/2023 [facility] DATE CREATED AUTHOR AUTHOR'S ORGANIZ ATION 11/04/2023 [facility] DATE CREATED AUTHOR AUTHOR'S ORGANIZ ATION 11/26/2023 [facility] EPIC REASON FOR VISIT (unrecogniz [...] BE BASED ON THE PRIMARY CLINICAL RECORDS. [facility]. provides no warranty or guarantee of the accuracy or completeness of information in this document.
== END 2023-12-06 08:57 | disposition home or self-care (01) ==
LOC: PM 08:57
PROVIDERS: PCP Family Medicine; Visit Provider Nurse Practitioner
DX: M47.812 Spondylosis without myelopathy or radiculopathy, cervical region (principal); M79.18 Myalgia, other site
CPT/HCPCS: G0463

== ENCOUNTER 2024-03-07 14:49 | Outpatient (OUT) | payer MEDICAID, SELFPAY ==
--- NOTE | 2024-03-07 15:21 | P.CN_ITS ---
Consult Note: HPI Data of Consult Patient: known to practice within the last 3 years Consult date: 08/17/23 Requesting Physician: Yolanda Saenz NP Primary Care Provider: TIMA GUAJARDO Consult Narrative Reason for consult: chronic neck pain Narrative: Hilda Mann a pleasant 48 year old woman presents for evaluation and management of chronic neck pain. continues to engage in provider guided HEP without improvement. reports moderate relief from prior right C2-3 c3-4 facet RFAs and decrease in headaches. With work changes she has stopped taking gabapentin 300mg daily and baclofen and numbness tingling of right arm has worsened. Patient has a hx of thoracic outlet syndrome. Pain today 0/10 however numbness tingling 7/10 down right arm. Finds mild benefit to ibuprofen. no recent cervical MRI. cc:: CC: Yolanda Saenz NP Review of Systems ROS Status of ROS 10 or more systems reviewed and unremark able except as noted in history and below Musculoskeletal Reports: neck pain PFSH PFSH Medical History Hyperthyroidism ?E05.90 - Thyrotoxicosis, unspecified without thyrotoxic crisis or storm (ICD-10) Asthma ?J45.909 - Unspecified asthma, uncomplicated (ICD-10) Diabetes ?E11.9 - Type 2 diabetes mellitus without complications (ICD-10) High cholesterol ?E78.00 - Pure hypercholesterolemia, unspecified (ICD-10) HTN (hypertension) ?I10 - Essential (primary) hypertension (ICD-10) Left hip pain ?M25.552 - Pain in left hip (ICD-10) Surgical History History of cholecystectomy ?Z90.49 - Acquired absence of other specified parts of digestive tract (ICD- 10) Previous section ?Z98.891 - History of uterine scar from previous surgery (ICD-10) History of fasciotomy ?Z98.890 - Other specified postprocedural states (ICD-10) History of arthroscopy of right shoulder ?Z98.890 - Other specified postprocedural states (ICD-10) History of decompression of ulnar nerve ?Z98.890 - Other specified postprocedural states (ICD-10) S/P carpal tunnel release ?Z98.890 - Other specified postprocedural states (ICD-10) History of total knee arthroplasty ?Z96.659 - Presence of unspecified artificial knee joint (ICD-10) H/O arthroscopy of shoulder ?Z98.890 - Other specified postprocedural states (ICD-10) Meds Home Medications and Allergies Home Medications ?Medication ?Instructions ?Recorded ?Confirmed ?Type atorvastatin 20 mg tablet 20 mg PO DAILY 04/14/23 10/30/23 History budesonide 180 mcg/actuation 1 inh inhalation DAILY 04/14/23 10/30/23 History breath activated powder inhaler (Pulmicort Flexhaler) hydrochlorothiazide 25 mg tablet 25 mg PO DAILY 04/14/23 10/30/23 History losartan 25 mg tablet 50 mg PO DAILY 04/14/23 10/30/23 History metformin 500 mg tablet 500 mg PO DAILY 04/14/23 10/30/23 History venlafaxine 75 mg tablet 75 mg PO DAILY 04/14/23 10/30/23 History methimazole 20 mg tablet 20 mg PO DAILY 04/19/23 10/30/23 History gabapentin 300 mg capsule 300 mg PO DAILY 07/24/23 10/30/23 History medroxyprogesterone 150 mg/mL 300 mg IM .Q3 Months 07/24/23 10/30/23 History intramuscular suspension (Depo-Provera) Allergies Allergy/AdvReac Type Severity Reaction Status Date / Time vancomycin AdvReac flushing, Verified 10/30/23 07:10 itching Exam Constitutional Documenting provider has reviewed patient's vital signs: yes Common normals: no apparent distress, oriented x3, healthy appearing, alert and well nourished General appearance: cooperative [facility] Common normals: normocephalic, hearing grossly normal bilaterally and moist oral mucous membranes Head and scalp: normocephalic Eye Common normals: PERRL Pupil: PERRL Neck & C-Spine Common normals: full ROM General: normal visual inspection Cervical spine: cervical ROM normal and cervical spine tenderness Other: positive spurlings strength 5/5 in BUE decreased sensation to right C5,6,7 pattern Chest Common normals: inspection of chest normal Respiratory Common normals: normal respiratory effort, no retractions and no use of accessory muscles Neuro Common normals: oriented x3, CN's II-XII intact bilaterally, moves all extremities, no focal motor deficits, no sensory deficits noted and deep tendon reflexes 2+ bilaterally Sensorium/orientation: alert Motor exam: strength 5/5 throughout and no movement abnormalities noted Psych Common normals: mental status grossly normal, thought process normal, cooperative, affect normal, speech normal and activity/motor behavior normal Speech: normal speech Thought process: normal thought process Results Additional Findings Additional findings: If on a controlled substance or opioids, I have checked an [place]ARRS report on this patient and there are no aberrancies noted in the prescribing history.??If on a controlled substance or opioid a drug screen was completed and reviewed within the last year, and if there has not been a drug screen completed we ordered one today to monitor higher risk, state monitored pain medication use. As part of providing excellent, safe, comprehensive care, the following was completed at our patient's visit: 1. A medication reconciliation and review to ensure accurate knowledge of current/active medications, including asking our patients to inform us about any mpsm-lto-bvrvmra medications or herbal remedies/nutritional supplements/alternative remedies. 2. A review to specifically ensure our patients have had annual screening for screening for depression, screening for tobacco use, and screening for unhealthy alcohol use. For concerning screenings had a discussion with the patient, provided patient education, and recommended follow-up with primary care provider when appropriate. If patient noted with a risk of falling, they received education on strength, gait, and balance training to prevent future risk of falling. Assessment and Plan Assessment and Plan (1) Cervical radiculopathy: (2) Cervical spondylosis: (3) Myofascial pain: Plan restart gabapentin adjust to 100mg TID as tolerated restart baclofen 10mg HS PRN pain/spasms cervical MRI without contrast if pain worsens or symptoms persist to evaluate cervical radiculopathy unresponsive to above listed therapies f/u 3 months, sooner if needed
== END 2024-03-07 14:50 | disposition home or self-care (01) ==
LOC: PM 14:49
PROVIDERS: PCP Family Medicine; Visit Provider Nurse Practitioner
DX: M54.12 Radiculopathy, cervical region (principal); M47.812 Spondylosis without myelopathy or radiculopathy, cervical region; M79.18 Myalgia, other site
CPT/HCPCS: G0463

== ENCOUNTER 2024-06-05 10:49 | Outpatient (OUT) | payer MEDICAID, SELFPAY ==
--- NOTE | 2024-06-05 11:03 | PM.CN ---
Consult Note: HPI Data of Consult Patient: known to practice within the last 3 years Consult date: 08/17/23 Requesting Physician: Yolanda Saenz NP Primary Care Provider: TIMA GUAJARDO Consult Narrative Reason for consult: chronic neck pain Narrative: Hilda Mann a pleasant 48 year old woman presents for evaluation and management of chronic neck pain. continues to engage in provider guided HEP without improvement. reports moderate relief from prior right C2-3 c3-4 facet RFAs and decrease in headaches. With work changes she has stopped taking gabapentin 300mg daily and baclofen and numbness tingling of right arm has worsened. Patient has a hx of thoracic outlet syndrome. Pain today 7/10 in right arm, significant numbness and tingling. Finds mild benefit to ibuprofen. no recent cervical MRI. prior cervical xray consistent with mild degenerative changes. cc:: CC: Yolanda Saenz NP Review of Systems ROS Status of ROS 10 or more systems reviewed and unremarkable except as noted in history and below Musculoskeletal Reports: extremity pain PFSH PFSH Medical History Hyperthyroidism ?E05.90 - Thyrotoxicosis, unspecified without thyrotoxic crisis or storm (ICD-10) Asthma ?J45.909 - Unspecified asthma, uncomplicated (ICD-10) Diabetes ?E11.9 - Type 2 diabetes mellitus without complications (ICD-10) High cholesterol ?E78.00 - Pure hypercholesterolemia, unspecified (ICD-10) HTN (hypertension) ?I10 - Essential (primary) hypertension (ICD-10) Left hip pain ?M25.552 - Pain in left hip (ICD-10) Surgical History History of cholecystectomy ?Z90.49 - Acquired absence of other specified parts of digestive tract (ICD-10) Previous section ?Z98.891 - History of uterine scar from previous surgery (ICD-10) History of fasciotomy ?Z98.890 - Other specified postprocedural states (ICD-10) History of arthroscopy of right shoulder ?Z98.890 - Other specified postprocedural states (ICD-10) History of decompression of ulnar nerve ?Z98.890 - Other specified postprocedural states (ICD-10) S/P carpal tunnel release ?Z98.890 - Other specified postprocedural states (ICD-10) History of total knee arthroplasty ?Z96.659 - Presence of unspecified artificial knee joint (ICD-10) H/O arthroscopy of shoulder ?Z98.890 - Other specified postprocedural states (ICD-10) Meds Home Medications and Allergies Home Medications ?Medication ?Instructions ?Recorded ?Confirmed ?Type atorvastatin 20 mg tablet 20 mg PO DAILY 04/14/23 10/30/23 History budesonide 180 mcg/actuation 1 inh inhalation DAILY 04/14/23 10/30/23 History breath activated powder inhaler (Pulmicort Flexhaler) hydrochlorothiazide 25 mg tablet 25 mg PO DAILY 04/14/23 10/30/23 History losartan 25 mg tablet 50 mg PO DAILY 04/14/23 10/30/23 History metformin 500 mg tablet 500 mg PO DAILY 04/14/23 10/30/23 History venlafaxine 75 mg tablet 75 mg PO DAILY 04/14/23 10/30/23 History methimazole 20 mg tablet 20 mg PO DAILY 04/19/23 10/30/23 History gabapentin 300 mg capsule 300 mg PO DAILY 07/24/23 10/30/23 History medroxyprogesterone 150 mg/mL 300 mg IM .Q3 Months 07/24/23 10/30/23 History intramuscular suspension (Depo-Provera) Allergies Allergy/AdvReac Type Severity Reaction Status Date / Time vancomycin AdvReac flushing, Verified 10/30/23 07:10 itching Exam Constitutional Documenting provider has reviewed patient's vital signs: yes Common normals: no apparent distress, oriented x3, healthy appearing, alert and well nourished General appearance: cooperative [facility] Common normals: normocephalic, hearing grossly normal bilaterally and moist oral mucous membranes Head and scalp: normocephalic Eye Common normals: PERRL Pupil: PERRL Neck & C-Spine Common normals: full ROM General: normal visual inspection Cervical spine: cervical ROM normal and cervical spine tenderness Other: positive spurlings strength 5/5 in BUE decreased sensation to right C5,6,7 pattern Chest Common normals: inspection of chest normal Respiratory Common normals: normal respiratory effort, no retractions and no use of accessory muscles Neuro Common normals: oriented x3, CN's II-XII intact bilaterally, moves all extremities, no focal motor deficits, no sensory deficits noted and deep tendon reflexes 2+ bilaterally Sensorium/orientation: alert Motor exam: strength 5/5 throughout and no movement abnormalities noted Psych Common normals: mental status grossly normal, thought process normal, cooperative, affect normal, speech normal and activity/motor behavior normal Speech: normal speech Thought process: normal thought process Results Additional Findings Additional findings: If on a controlled substance or opioids, I have checked an [place] report on this patient and there are no aberrancies noted in the prescribing history.??If on a controlled substance or opioid a drug screen was completed and reviewed within the last year, and if there has not been a drug screen completed we ordered one today to monitor higher risk, state monitored pain medication use. As part of providing excellent, safe, comprehensive care, the following was completed at our patient's visit: 1. A medication reconciliation and review to ensure accurate knowledge of current/active medications, including asking our patients to inform us about any [id number]-[id number] medications or herbal remedies/nutritional supplements/alternative remedies. 2. A review to specifically ensure our patients have had annual screening for screening for depression, screening for tobacco use, and screening for unhealthy alcohol use. For concerning screenings had a discussion with the patient, provided patient education, and recommended follow-up with primary care provider when appropriate. If patient noted with a risk of falling, they received education on strength, gait, and balance training to prevent future risk of falling. Assessment and Plan Assessment and Plan (1) Cervical radiculopathy: (2) Cervical spondylosis: (3) Myofascial pain: Plan update cervical MRI without contrast to evaluate cervical radiculopathy encouraged tens, restarting gabapentin 100-300mg HS as tolerated, balcofen 10mg HS PRN pain/spasms f/u to review MRI
--- OUTSIDE RECORDS SUMMARY | 2024-06-05 11:12 | XMS_ITS | CCD ---
Author Organization [facility] Care Team Providers Care Environmental Emergencies Assistant Name Role Phone CASANDRA LAURY Primary Care Unavailable CONNER DUVAL Admitting Unavailable [...] Care Unavailable Eleuterio Urbina DDS Attending Unavailable Arturo PARRY, Tiffanie Mcclure Attending Unavailable MICHELLE ANAND Attending Unavailable NILO, ANU Attending Unavailable NILO, ANU Attending Unavailable KEVIN CLINTON Referring Unavailable NILO, ANU Referring Unavailable NILO, ANU Attending Unavailable CASANDRA, LAURY F Attending Unavailable LAYNE MCDONALD Attending Unavailable LAYNE MCDONALD Referring Unavailable LAYNE MCDONALD Attending Unavailable CONNOR WEBSTER Attending Unavailable CASANDRA, LAURY F Referring Unavailable ELEANORCONNOR VO Attending Unavailable CASANDRA, LAURY F Referring Unavailable CASANDRA, LAURY F Attending Unavailable CHRIS WHITMORE Attending Unavailable CASANDRA, LAURY F Referring Unavailable CASANDRA, LAURY F Attending Unavailable CASANDRA, LAURY F Attending Unavailable CASANDRA, LAURY F Referring Unavailable WHITMORECHRIS Attending Unavailable CASANDRA, LAURY F Referring Unavailable ELEANORCONNOR VO Attending Unavailable CASANDRA, LAURY F Referring Unavailable WHITMORECHRIS Attending Unavailable CASANDRA, LAURY F Referring Unavailable Allergies Allergy Classification Reported Allergen(s) Allergy Type Date of Onset Reaction(s) Facility (2 sources) Vancomycin Drug Allergy [employer] [facility] Other (1 source) Vancomycin Drug Allergy 11-03-19 [facility] Repository (1 source) Glycopeptides (Antibiotic); Translations: [VANCOMYCIN ANALOGUES] Propensity to adverse reactions to drug (disorder) 02-08-20 [facility] Repository Medications Current Medications Medication Drug [...] unspecified knee] Onset: 05-20-2021 Resolved: 05-20-2021 Chronic Unclassified (1 source) Encounter for screening for malignant neoplasm of colon; Translations: [Encounter for screening for malignant neoplasm of colon] Onset: 11-02-2022 Past or Other Problems Problem Classification Problem Date Documented Da te Episodic/Chronic Other connective tissue disease (2 sources) Psoas tendinitis, left hip; Translations: [Psoas tendinitis, left hip] Onset: 08-18-2023 Episodic Other non-traumatic joint disorders (2 sources) Pain in left hip; Translations: [Pain in left hip] Onset: 05-29-2023 Episodic Sprains and strains (2 sources) Other sprain of left hip, sequela; Translations: [Other sprain of left hip, sequela] Onset: 09-11-2023 Episodic Results Test Name Value Interpretation Reference Range Facility 36on 12-21-2023 36 Surgery was cx. Lvm to call back when ready to r/s [facility] 36 Patient needs to can cristofer upcoming surgery. [facility] Orders Onlyon 12-20-2023 Orders Only [id number] MackenzieShell ie 1975 F Date Provider Department [place] 12/20/2023 [id number] [place] [facility] C No family history on file [facility] Follow-Upon 09-11-2023 Follow-Up [id number] MackenzieShell ie 1975 F Date Provider Department [place] 09/11/2023 ANU GOTTI MP ORTHO MPORTHO No family history on file Level of Service:44950 CO OFFICE/OUTPATIENT ESTABLISHED MOD MDM 30 MIN Reason for Visit and Comments: Pain [136] [facility] 36on 08-22-2023 36 Appt was scheduled [facility] 36 [facility] received [facility] 4-5 hour relief from the injection, still had joint popping but no pain. Pains back now so wants to know what she's supposed to do now. [facility] Procedure Visiton 08-18-2023 Procedure Visit [id number] PlantShell ie 1975 F Date Provider Department Center 08/18/2023 MICHELLE CHEEK MP ORTHO MPORTHO No family history on file Level of Service:85703 CO OFFICE/OUTPATIENT NEW LOW MDM 30 MINUTES (25) Reason for Visit and Comments: Injections [186] [facility] 36on 08-15-2023 36 Called patient to reschedule her appt. Due to being out of office. Offered patient 08/18/2023 [facility] 36on 07-24-2023 36 Lvm that pt does not need a prior auth. She just needs to schedule appt with Dr. Fuentes for injection Normal [facility] Follow-Upon 07-10-2023 Follow-Up [id number] Kellie Mann 1975 F Date Provider Department [place] 07/10/2023 ANU GOTTI MP ORTHO MPORTHO No family history on file Level of Service:63538 CO OFFICE/OUTPATIENT ESTABLISHED LOW MDM 20-29 MIN (GC) Reason for Visit and Comments: Pain [136] Normal [facility] XR CERVICAL SPINE 2-3 VIEWSo n 06-26-2023 [...] Not Available Office Visiton 05-29-2023 Follow-up visit [id number] Kellie Mann 1975 F Date [facility] 05/29/2023 ANU RESENDIZ MP ORTHO MPORTHO No family history on file Level of Service:51026 CO OFFICE/OUTPATIENT ESTABLISHED MOD MDM 30-39 MIN (25,GC) Reason for Visit and Comments: Pain [136] Normal [facility] MRI Shoulder w/o Lefton 05 MRI Shoulder [...] by Stevie Holm on 12/26/2022 1544 Normal [facility] Glucose Glucometer (dC) [M ass/Vol]Ordered By: Garcia Sanchez on 11-02-2022 Glucose [Mass/Vol] 104 mg/dL [facility] Comment on above: Random Glucose Refer ence Range is dependent on time and content of last meal. Glucose of more than 200 mg/dL in a nonstressed, ambulatory subject supports the diagnosis of Diabetes Mellitus. Glucose Poct Glucometerson 0 11-02-2022 Commemt1 Glu2: Cleaned Meter Normal [facility] Comment on above: Result Comment: PERF ORMED BY: [facility] [address] [place] [address] PATHOLOGIST C WPF DEVELOPER VICENTE SINGH M.D. Performed By: #### G LULS #### Point of Care testing , Glucose [Mass/Vol] 104 mg/dL Normal [facility] Comment on above: Result Comment: [facility] Glucose Reference Range is dependent on time and content of last meal. Glucose of more than 200 mg/dL in a nonstressed, ambulatory subject supports the diagnosis of Diabetes Mellitus. Performed By: #### G LULS #### Point of Care testing , HCG ( test) IA.rapi d Ql (U)Ordered By: Garcia Sanchez on 11-02-2022 HCG ( test) Ql (U) Negative [facility] HCG,Urineon 11-02-2022 Beta HCG ( test) Ql (U) Negative Normal [facility] Comment on above: Result Comment: PERF ORMED BY: [place] [address] PATHOLOGIST C WPF DEVELOPER VICENTE SINGH M.D. Performed By: #### U HCG #### [address] No Panel InformationOrdered By: Garcia Sanchez on 11-02-2022 Bedside Glucose Comment Glu2: cleaned meter [facility] Diagnostic Mammogram, Bilate ral w/Ananth (3D)on [...] VERY IMPORTANT TO YOUR HEALTH. THE CURRENT [employer] GUIDELINES RECOMMENDS ANNUAL MAMMOGRAPHY BEGINNING AT AGE 38 THIS FACILITY USES A REMINDER SYSTEM TO ENSURE ALL PATIENTS RECEIVE REMINDER NOTIFICATIONS AT THE APPROPRIATE TIME BASED ON THE RECOMMENDATIONS OF THIS EXAM. Report reported and signed by Juaquin Bullock on 07/12/2022 1546 Normal [facility] [employer] US Breast Limited, Lefton US Breast Limited, Left Please see right breast ultrasound report. Report reported and signed by Juaquin Bullock on 07/12/2022 1546 Normal [facility] SCREENING MAMMOGRAM W/ANANTH, BILATERAL*on 07-05-2022 SCREENING MAMMOGRAM [...] Visible on only one projection. Asymmetries that returns processor to be summation artifact are benign (BI-RADS 2). The BI-RADS [place] offers guidance regarding the other categories of [...] VERY IMPORTANT TO YOUR HEALTH. THE CURRENT [employer] GUIDELINES RECOMMENDS ANNUAL MAMMOGRAPHY BEGINNING AT AGE 38 THIS FACILITY USES A REMINDER SYSTEM TO ENSURE ALL PATIENTS RECEIVE REMINDER NOTIFICATIONS AT THE APPROPRIATE TIME BASED ON THE RECOMMENDATIONS OF THIS EXAM. Report reported and signed by Juaquin Bullock on 07/05/2022 1525 Normal [facility] Operative Reporton 2 Operative Report MR#: [id number] S [facility] Pt. Name: Hilda Mann Room #: [...] 2. Decompression of ulnar nerve, left elbow. LITIGATION SECRETARY: Juan Quintanilla M.D. ANESTHESIA: General. INDICATION FOR [...] far as we safely could using an [place] retractor to expose the proximal end and looked the proximal skin edge. The nerve was then released through the cubital tunnel releasing Magana's ligament and the fascia over the cubital tunnel. The nerve was free distally as the FCU fascias, both superficial and deep were split. Again, we used an [employer] retractor to lift the distal end of [...] Duval M.D. Date Trans: 12/16/2021 06:56 P/arvind [id number] cc: Laury Azar M.D. [address] [place] [id number] Dhruv Paz, DO [facility] Kim Billings P. O. Cam (more content not included)... Normal [facility] POC GLUCOSE LABon 12-16-2021 Glucose [Mass/Vol] 156 mg/dL High 70-100 [facility] Comment on above: Performed By: #### [id number] #### [facility] [address] [place] [address], [facility] POC URINE PREGNANCYon 2021 Beta HCG ( test) Ql (U) Negative Normal NEGATIVE [facility] Comment on above: Performed By: #### 8 [id number] #### [facility] [address] [place] [address], [facility] Vital Signs Date Time Vital Sign Value Performing Clinician Facility 11-02-2022 09:58-0400 Diastolic blood pressure 102 mm[Hg] MD Laury Azar Work Phone: [facility] 11-02-2022 09:58-0400 Heart rate 71 /min MD Laury Azar Work Phone: [facility] 11-02-2022 09:58-0400 Respiratory rate 16 /min MD Laury Azar Work Phone: [facility] 11-02-2022 09:58-0400 SaO2% (BldA) [Mass fraction] 100 % MD Laury Azar Work Phone: [facility] 11-02-2022 09:58-0400 Systolic blood pressure 161 mm[Hg] MD Laury Azar Work Phone: [facility] 11-02-2022 08:27-0400 Body height 165.1 cm MD Laury Azar Work Phone: [facility] 11-02-2022 08:27-0400 Body weight 95.25 kg MD Laury Azar Work Phone: [facility] 05-20-2021 15:45-0400 Body height 165.1 cm Sandoval Solano Other [place] Other 05-20-2021 15:45-0400 Body mass index (BMI) [Ratio] 38.94 kg/m2 Sandoval Solano Other [place] Other 05-20-2021 15:45-0400 Body temperature 97.9 [degF] Sandoval Solano Other [place] Other 05-20-2021 15:45-0400 Body weight 106.14 kg Sandoval Solano Other [place] Other 05-20-2021 15:45-0400 Diastolic blood pressure 85 mm[Hg] Sandoval Solano Other [place] Other 05-20-2021 15:45-0400 Systolic blood pressure 127 mm[Hg] Sandoval Solano Other [place] Other Encounters Encounter Date Encounter Type Care Provider Facility Start: 04-22-2024 End: 04-22-2024 ambulatory LAURY AZAR Not Available Start: 02-26-2024 End: 02-26-2024 ambulatory LAURY AZAR Not Available Start: 12-06-2023 End: 12-06-2023 ambulatory LAYNE MCDONALD Not Available Start: 11-21-2023 End: 11-21-2023 ambulatory LAYNE MCDONALD Not Available Start: 10-30-2023 End: 10-31-2023 ambulatory Tiffanie Morris MD Facility: [facility] Start: 10-10-2023 End: 10-10-2023 ambulatory LAURY AZAR Not Available Start: 09-11-2023 ambulatory ANU WILKERSON [facility] Start: 08-18-2023 ambulatory MICHELLE ANAND [facility] Start: 08-04-2023 End: 08-04-2023 ambulatory CHRIS WHITMORE Not Available Start: 08-01-2023 End: 08-01-2023 ambulatory CONNOR WEBSTER Not Available Start: 07-27-2023 End: 07-27-2023 ambulatory CHRIS WHITMORE Not Available Start: 07-20-2023 End: 07-20-2023 ambulatory CHRISHORACE WHITMORE Not Available Start: 07-18-2023 End: 07-18-2023 ambulatory CONNOR WEBSTER Not Available Start: 07-14-2023 End: 07-14-2023 ambulatory CONNOR WEBSTER Not Available Start: 07-10-2023 End: 07-10-[address] [facility] Start: 06-26-2023 End: 06-26-2023 ambulatory LAURY AZAR Not Available Start: 06-21-2023 End: 06-22-[address] [facility] Start: 05-29-[address] [facility] Start: 01-25-2023 ambulatory Ferkathrin Carlitos DDS [facility] Start: 11-02-2022 End: 11-02-2022 ambulatory Garcia Sanchez Facility:[facility] Start: 11-02-2022 End: 11-02-2022 Admission to same day surgery center MD Laury Azar Work Phone: [facility] Work Phone: Start: 11-02-2022 End: 11-02-2022 ambulatory MD Laury Azar Work Phone: [facility] Work Phone: Start: 07-05-2022 End: 07-05-2022 ambulatory Garcia Sanchez Other [place] Other Start: 07-05-2022 Telephone encounter Garcia CAPUTO G Stabilizing Machine Operator Start: 12-16-2021 End: 12-17-2021 ambulatory LAURY AZAR Facility:[facility] Start: 10-25-2021 End: 10-30-2021 ambulatory REFERRED SELF Facility:[facility] Start: 05-20-2021 Office outpatient visit 25 minutes Sandoval SILVA Infectious Disease Procedures Date Procedure Procedure Detail Performing Clinician Start: 11-02-2022 Colonoscopy MD Laury resendez Work Phone: Plan of Treatment Date Care Activity Detail Author Start: 11-02-2022 [facility] Payers Date Payer Category Payer Private Health Insurance [id number] 2023 Private Health Insurance 2022 Medicaid [id number] 2022 Self-pay [id number] 1975 Unknown [id number] 2.16.8 40.1.836872.3.579.2.647 1975 Unknown [id number] 2.16.8 40.1.263623.3.579.2.647 1975 Unknown [id number] 2.16. 840.1.996098.3.579.2.196 1975 Unknown [id number] 2.16.84 0.1.035288.3.579.2.9 1975 Unknown [id number] 2.16.84 0.1.313424.3.579.2.1259 1975 Unknown [id number] 2.16.84 0.1.758323.3.579.2.1259 1975 Unknown [id number] 2.16.84 0.1.049364.3.579.2.9 1975 Unknown [id number] 2.16.84 0.1.068880.3.579.2.1259 1975 Unknown [id number] 2.16.84 0.1.899446.3.579.2.1259 1975 Unknown [id number] 2.16.840 .1.545173.3.579.2.1259 1975 Unknown [id number] 2.16.840 .1.486461.3.579.2.1259 1975 Unknown [id number] 2.16.840 .1.884638.3.579.2.1259 1975 Unknown [id number] 2.16.840 .1.325820.3.579.2.1259 1975 Unknown [id number] 2.16.840 .1.106673.3.579.2.1259 1975 Unknown [id number] 2.16.840 .1.352825.3.579.2.9 1975 Unknown [id number] 2.16.840 .1.288492.3.579.2.1259 1975 Unknown [id number] 2.16.840 .1.217205.3.579.2.1259 Unknown [id number] Unknown [place] [id number] Unknown [id number] 2.16.8 40.1.882491.3.579.2.531 Social History Date Type Detail Facility Unknown if ever smoked [place] Other Sex Assigned At Sex Assigned At Bir th [place] Other Start: 11-02-2022 Tobacco smoking status NHIS Never smoked tobacco (finding) [facility] Start: 1975 Sex Assigned At Female F [facility] Goals Date Patient Goal Desired Activity /State Clinical Notes 05-20-2021 to 12-20-2023 Note Date & Type Note Facility 12-20-2023 Note Medications to take AM day of procedure with sips water only: NEURONTIN Medication Hold instructions: NONE IF YOU ARE GOING HOME AFTER YOUR SURGERY OR PROCEDURE, FOR YOUR SAFETY, YOUR SURGERY WILL BE CANCELLED IF BOTH OF THE FOLLOWING ARE NOT AVAILABLE: An adult seasonal driver over the age of 18, that can receive information about your care after surgery, and drive you home. A responsible adult to stay with you for 24 hours in case of an emergency. Can be same as above. The highest risk of complications is within the first 24 hours after sedation/anesthesia. Nothing to eat or drink after midnight the night before surgery. This includes gum, candy, mints, and lozenges. No alcohol, marijuana, or tobacco products including vaping for 24 hours. Please brush your teeth; don't swallow the toothpaste or water. If you use dentures, wear them but do not use paste. Please leave any other removable dental hardware at home. Do not put in contact lenses. Do not wear perfume, make-up, nail slovak, or lotions on the day of your surgery or procedure. Follow skin-prep/wipe instructions as below if required. Bring with you: *Insurance card *Photo ID *Medication list *Co-pay for visit/prescriptions If applicable: *Rescue inhalers *Green bracelet from lab *CPAP or BiPAP machine, if staying overnight *Any braces, splints, or equipment ordered preoperatively *Remote controls for implanted devices Leave at home: *Purse/Wallet/Mathias- unless needed for co-pay *Cell phone (can leave with family/friend or place in locker if needed) *Jewelry (including piercings and wedding bands) *If not possible, ask the person who is waiting with you to keep them Children under the age of 12 will not be allowed into patient care areas. We will call you between 3pm and 4pm the day before your surgery to give you an arrival time. If you do not receive this call, have any questions, or need to make any changes, please call [phone]. Notify your surgeon if you develop any illness such as a cold, cough, fever, sore throat or vomiting between now and your surgery. Thank you for entrusting us with your care. [facility] Surgical Services Team [facility] 09-11-2023 Note Subjective Chief complaint: Chief Complaint [...] was obtained in clinic. IDA MERRITT MS3 [facility] 08-18-2023 Note Sports Medicine Subj ective [...] pt reports she did not have any equipment operator intermodal yard relief with this Blood thinners: denies Allergy to Anesthetics: denies Hx of Diabetes: Last A1c of 5.7% MRA Arthogram 04/19/23 FINDINGS: Contrast fills the hip joint. No visualized fracture, dislocation, subluxation or osseous lesion. The acetabular labrum or articular cartilage of the femoral head and acetabulum exhibit no chondral or osteochondral defect. On the large [id number] coronal imaging; the pubic symphysis, sacroiliac joints [...] provider as directe (more content not included)... [facility] 07-10-2023 Note Attestation signed by Anu [...] be an additional personal documentation from me. [facility] 05-29-2023 Note Attestation signed by Anu [...] repair Joseph Campoverde MD PGY-5 Orthopedic Surgery [facility] By using the attestations below, the [...] be an additional personal documentation from me. [facility] 05-29-2023 Note Subjective Chief complaint: Chief [...] if not improved for labral repair Joseph Bouck MD PGY-5 Orthopedic Surgery [facility] By using the attestations below, the [...] and draped in the usual sterile fashion. [facility] 11-02-2022 Procedure note [facility] 07-12-2022 Note FINDINGS: Sonographic evaluation of both breasts demonstrates no worrisome cystic or solid mass lesions. Reference is made to the same day mammogram and recent mammogram of July 05, 2022. IMPRESSION: BI-RADS 3- Probably Benign. Short term interval follow up. Recommend follow up bilateral mammography in 6 months. Report reported and signed by Juaquin Bullock on 07/12/2022 1545 [facility] [facility] [employer] 05-20-2021 Evaluation note Encounter Date Diagnosis Assessment Notes May, History of MRSA infection (ICD-10 - Z86.14) May, Arthritis of knee (ICD-10 - M17.10) [facility] Other [facility] Other Evaluation noteNo assessment information available [facility] Work Phone: History and physical note Author Garcia Sanchez [facility] November 02, 2022 9:14am Note Date/Time November 02, 2022 9:1 4am [facility] ENTER [address] [place] [address] Gastroenterology H&P Signed Patient: Hilda Mann MR#: [id number] : 1975 Acct:[id number] Age/Sex: 47 / F Adm Date: 3 Loc: Room: Type: [facility] Attending Dr: Garcia Sanchez MD Copies [...] by Garcia Sanchez MD> 11/02/22913 [facility] Work Phone: History general Narrative - Reported* Type Description Date Medical History MRSA Medical History HTN Surgical History BILATERAL KNEES Surgical History C SECTION Surgical History BILATERAL FEET Surgical History R ELBOW [place] Other Hospital Discharge instructions Additional Instructions DISCHARGE [...] NOT operate machinery such as power tools, Buzz Median mowers, snow blowers, sewing machines, etc. for [...] colonoscopy. -Follow up with PCP. -Office number [phone].[facility] Work Phone: Summary Purpose Family History No Family History Records Found Relationship Condition Age at Onset Recorded Date/T giacomo Not Specified Malignant neoplasm of uterus Unknown Malignant neoplasm of colon Unknown Malignant neoplasm of throat Unknown grandparent Malignant neoplasm of uterus Unknown Advance Directives No Advanced Directives Records Found Advance Directive Response Recorded Date/ Time Advance Directives No October 24, 019 12:54pm Chief Complaint and Reason for Visit Chief Complaint Polyp of Colon Additional Source Comments INFORMATION SOURCE (unrecogn ized section and content) DATE CREATED AUTHOR 12/22/2021 [facility] DATE CREATED AUTHOR AUTHOR'S ORGANIZ ATION 11/11/2022 [facility] DATE CREATED AUTHOR AUTHOR'S ORGANIZ ATION 12/27/2022 [facility] dical Specialist DATE CREATED AUTHOR AUTHOR'S ORGANIZ ATION 03/18/2023 [facility] DATE CREATED AUTHOR AUTHOR'S ORGANIZ ATION 11/04/2023 [facility] DATE CREATED AUTHOR AUTHOR'S ORGANIZ ATION 12/25/2023 [facility] DATE CREATED AUTHOR AUTHOR'S ORGANIZ ATION 04/23/2024 [facility] dical Specialists EPIC REASON FOR VISIT [...] BE BASED ON THE PRIMARY CLINICAL RECORDS. [employer] provides no warranty or guarantee of the accuracy or completeness of information in this document.
== END 2024-06-05 10:50 | disposition home or self-care (01) ==
LOC: PM 10:50
PROVIDERS: PCP Family Medicine; Visit Provider Nurse Practitioner
DX: M54.12 Radiculopathy, cervical region (principal); M47.812 Spondylosis without myelopathy or radiculopathy, cervical region; M79.18 Myalgia, other site
CPT/HCPCS: G0463

== ENCOUNTER 2024-06-27 09:43 | Outpatient (OUT) | payer MEDICAID, SELFPAY ==
--- NOTE | 2024-06-27 09:46 | MR_ITS ---
[address] [address] Patient Name: AUGUSTINE PINA MRN: [id number] date: 1975 Sex: F Assigned Patient Location: MRI Current Patient Location: Accession/Order Number: [id number] Exam Date: 06/27/2024 10:10 Report Date: 06/29/2024 07:56 At the request of: NAREN RICHARDSON Procedure: MR cervical spine wo con EXAMINATION: MR cervical spine wo con HISTORY: Cervical Radiculopathy, Cervical Spondylosis ; neck pain radiating into right shoulder and arm; numbness and tingling COMPARISON: XR cervical spine 07/18/2023 TECHNIQUE: A variety of imaging planes and parameters were utilized for visualization of suspected pathology without and/or with intravenous Dotarem contrast based on examination type. FINDINGS: CRANIOCERVICAL AREA: Normal foramen magnum with no Chiari malformation. PARASPINAL AREA: Mild mucosal thickening within the paranasal sinuses. BONES: No fracture, pars defect, or osseous lesion. CORD: Normal caliber, contour, and signal intensity. CERVICAL DISC LEVELS: C2-C3: No significant disc/facet abnormality, spinal stenosis, or foraminal stenosis. C3-C4: No significant disc/facet abnormality, spinal stenosis, or foraminal stenosis. C4-C5: Moderate right foramen narrowing. Mild disc bulging eccentric to the right the foramen. Uncovertebral joint spurring. No significant central canal or left foramen narrowing. No significant facet arthropathy. C5-C6: Moderate foramen narrowing secondary to uncovertebral joint spurring and mild disc bulging. No significant central canal or left foramen narrowing. C6-C7: Early degenerative disc disease is present without focal protrusion or neural impingement. C7-T1:. Early degenerative disc disease is present without focal protrusion or neural impingement. MR/MR cervical spine wo con IMPRESSION: 1. Moderate right foramen narrowing at C4-C5 and C5-C6 predominantly due to uncovertebral joint spurring and mild disc bulging. Electronically authenticated by: KIRAN BENJAMIN Date: 06/29/2024 07:56
== END 2024-06-27 09:44 | disposition home or self-care (01) ==
LOC: MRI 09:43
PROVIDERS: PCP Family Medicine; Visit Provider Nurse Practitioner
DX: M54.12 Radiculopathy, cervical region (principal); M47.812 Spondylosis without myelopathy or radiculopathy, cervical region
CPT/HCPCS: 72141

== ENCOUNTER 2024-07-18 10:24 | Outpatient (OUT) | payer MEDICAID, SELFPAY ==
--- OUTSIDE RECORDS SUMMARY | 2024-07-18 10:34 | XMS_ITS | CCD ---
Author Organization [facility] Care Team Providers Care Market Research Senior Project Manager Name Role Phone CASANDRA LAURY Primary Care Unavailable CONNER DUVAL Admitting Unavailable CONNER DUVAL Attending Unavailable DHRUV PAZ Referring Unavailable SELF, REFERRED Primary Care Unavailable SELF, REFERRED Referring Unavailable CONNER DUVAL Admitting Unavailable CONNER DUVAL Attending Unavailable Sandoval Solano Unavailable Garcia Sanchez Unavailable MD Laury Azar Primary Care Provider [phone] MD Garcia Sanchez Attending Provider [phone] Garcia Sanchez Attending Unavailable Garcia Sanchez Admitting [...] Unavailable CASANDRA, LAURY F Attending Unavailable CASANDRA, LARUY F Referring Unavailable WHITMORECHRIS Attending Unavailable CASANDRA, LAURY F Referring Unavailable ELEANORCONNOR VO Attending Unavailable CASANDRA, LAURY F Referring Unavailable WHITMORECHRIS Attending Unavailable CASANDRA, LAURY F Referring Unavailable Allergies Allergy Classification Reported Allergen(s) Allergy Type Date of Onset Reaction(s) Facility (2 sources) Vancomycin Drug Allergy [employer] [facility] [employer] Other (1 source) Vancomycin Drug Allergy 11-03-19 [facility] Repository (1 source) Glycopeptides (Antibiotic); Translations: [VANCOMYCIN ANALOGUES] Propensity to adverse reactions to drug (disorder) 02-08-20 [facility] Repository Medications Current Medications Medication Drug [...] to call back when ready to r/s [facility] 36 Patient needs to can cristofer upcoming surgery. [facility] Orders Onlyon 12-20-2023 Orders Only [id number] MackenzieShell ie 1975 F Date Provider Department [facility] 12/20/2023 [id number] [facility] Medical C No family history on file [facility] Follow-Upon 09-11-2023 Follow-Up [id number] MackenzieShell ie 1975 F Date Provider Department [facility] 09/11/2023 ANU GOTTI MP ORTHO MPORTHO No family history on file Level of Service:49191 CO OFFICE/OUTPATIENT ESTABLISHED MOD MDM 30 MIN Reason for Visit and Comments: Pain [136] [facility] 36on 08-22-2023 36 Appt was scheduled [facility] 36 Patient received [facility] 4-5 hour relief from the injection, still had joint popping but no pain. Pains back now so wants to know what she's supposed to do now. [facility] Procedure Visiton 08-18-2023 Procedure Visit [id number] Plant[employer] ie 1975 F Date Provider Department Center 08/18/2023 MICHELLE CHEEK MP ORTHO MPORTHO No family history on file Level of Service:03711 CO OFFICE/OUTPATIENT NEW LOW MDM 30 MINUTES (25) Reason for Visit and Comments: Injections [186] [facility] 36on 08-15-2023 36 Called patient to reschedule her appt. Due to being out of office. Offered patient 08/18/2023 [facility] 36on 07-24-2023 36 Lvm that pt does not need a prior auth. She just needs to schedule appt with Dr. Fuentes for injection Normal [facility] Follow-Upon 07-10-2023 Follow-Up [id number] Kellie Mann 1975 F Date Provider Department [facility] 07/10/2023 ANU GOTTI MP ORTHO MPORTHO No family history on file Level of Service:63062 CO OFFICE/OUTPATIENT ESTABLISHED LOW MDM 20-29 MIN (GC) Reason for Visit and Comments: Pain [136] Normal [facility] XR CERVICAL SPINE 2-3 VIEWSo [...] Not Available Office Visiton 05-29-2023 Follow-up visit [id number] Kellie Mann 1975 F Date [facility] 05/29/2023 ANU RESENDIZ MP ORTHO MPORTHO No family history on file Level of Service:76810 CO OFFICE/OUTPATIENT ESTABLISHED MOD MDM 30-39 MIN (25,GC) Reason for Visit and Comments: Pain [136] Normal [facility] MRI Shoulder w/o Lefton 05 MRI [...] by Stevie Holm on 12/26/2022 1544 Normal [facility] Specialist Glucose Glucometer (dC) [M ass/Vol]Ordered By: Garcia Sanchez on 11-02-2022 Glucose [Mass/Vol] 104 mg/dL [facility] Comment on above: Random Glucose Refer ence Range is dependent on time and content of last meal. Glucose of more than 200 mg/dL in a nonstressed, ambulatory subject supports the diagnosis of Diabetes Mellitus. Glucose Poct Glucometerson 0 11-02-2022 Commemt1 Glu2: Cleaned Meter Normal [facility] Comment on above: Result Comment: PERF ORMED BY: [facility] [address] [place] [address] PATHOLOGIST CONVICT GUARD VICENTE SINGH M.D. Performed By: #### G LULS #### Point of Care testing , Glucose [Mass/Vol] 104 mg/dL Normal [facility] Comment on above: Result Comment: [facility] Glucose Reference Range is dependent on time and content of last meal. Glucose of more than 200 mg/dL in a nonstressed, ambulatory subject supports the diagnosis of Diabetes Mellitus. Performed By: #### G LULS #### Point of Care testing , HCG ( test) IA.rapi d Ql (U)Ordered By: Garcia Sanchez on 11-02-2022 HCG ( test) Ql (U) Negative [facility] HCG,Urineon 11-02-2022 Beta HCG ( test) Ql (U) Negative Normal [facility] Comment on above: Result Comment: PERF ORMED BY: [place] [address] PATHOLOGIST CONVICT GUARD VICENTE SINGH M.D. Performed By: #### U HCG #### [address] No Panel InformationOrdered By: Garcia Sanchez on 11-02-2022 Bedside Glucose Comment Glu2: cleaned meter [facility] Diagnostic Mammogram, Bilate ral w/Ananth (3D)on [...] VERY IMPORTANT TO YOUR HEALTH. THE CURRENT NIG[employer]IEN COLLEGE OF RADIOLOGY AND NATIONAL COMPREHENSIVE CANCER NETWORK GUIDELINES RECOMMENDS ANNUAL MAMMOGRAPHY BEGINNING AT AGE 40 THIS FACILITY USES A REMINDER SYSTEM TO ENSURE ALL PATIENTS RECEIVE REMINDER NOTIFICATIONS AT THE APPROPRIATE TIME BASED ON THE RECOMMENDATIONS OF THIS EXAM. Report reported and signed by Juaquin Bullock on 07/12/2022 1546 Normal [facility] [employer] Front Maker US Breast Limited, Lefton US Breast Limited, Left Please see right breast ultrasound report. Report reported and signed by Juaquin Bullock on 07/12/2022 1546 Normal [facility] Specialist SCREENING MAMMOGRAM W/ANANTH, BILATERAL*on 07-05-2022 SCREENING [...] Visible on only one projection. Asymmetries that air turning machine feeder to be summation artifact are benign (BI-RADS 2). The BI-RADS Marydel offers guidance regarding the other categories of [...] VERY IMPORTANT TO YOUR HEALTH. THE CURRENT NIGERIEN COLLEGE OF RADIOLOGY AND NATIONAL COMPREHENSIVE CANCER NETWORK GUIDELINES RECOMMENDS ANNUAL MAMMOGRAPHY BEGINNING AT AGE 40 THIS FACILITY USES A REMINDER SYSTEM TO ENSURE ALL PATIENTS RECEIVE REMINDER NOTIFICATIONS AT THE APPROPRIATE TIME BASED ON THE RECOMMENDATIONS OF THIS EXAM. Report reported and signed by Juaquin Bullock on 07/05/2022 1525 Normal [facility] Specialist Operative Reporton 2 Operative Report MR#: [id number] S [facility] Pt. Name: Hilda Mann Room #: [...] 2. Decompression of ulnar nerve, left elbow. AUTOMOTIVE FUEL SYSTEMS CONVERTER: Juan Quintanilla M.D. ANESTHESIA: General. INDICATION FOR [...] far as we safely could using an [place] retractor to expose the proximal end and looked the proximal skin edge. The nerve was then released through the cubital tunnel releasing Magana's ligament and the fascia over the cubital tunnel. The nerve was free distally as the FCU fascias, both superficial and deep were split. Again, we used an [employer] retractor to lift the distal end of [...] Duval M.D. Date Trans: 12/16/2021 06:56 P/arvind [id number] cc: Laury Azar M.D. [address] [place] [id number] Dhruv Paz, DO [facility] Kim Billings P. O. Cam (more content not included)... Normal [facility] POC GLUCOSE LABon 12-16-2021 Glucose [Mass/Vol] 156 mg/dL High 70-100 [facility] Comment on above: Performed By: #### 8 [id number] #### [facility] [address] [place] [address], [facility] POC URINE PREGNANCYon 2021 Beta HCG ( test) Ql (U) Negative Normal NEGATIVE [facility] Comment on above: Performed By: #### 8 [id number] #### [facility] [address] [place] [address], [facility] Vital Signs Date Time Vital Sign Value Performing Clinician Facility 11-02-2022 09:58-0400 Diastolic blood pressure 102 mm[Hg] MD Laury Azar Work Phone: [facility] 11-02-2022 09:58-0400 Heart rate 71 /min MD Laury Azar Work Phone: [facility] 11-02-2022 09:58-0400 Respiratory rate 16 /min MD Laury Azar Work Phone: [facility] 11-02-2022 09:58-0400 SaO2% (BldA) [Mass fraction] 100 % MD Laury Azar Work Phone: [facility] 11-02-2022 09:58-0400 Systolic blood pressure 161 mm[Hg] MD Laury Azar Work Phone: [facility] 11-02-2022 08:27-0400 Body height 165.1 cm MD Laury Azar Work Phone: [facility] 11-02-2022 08:27-0400 Body weight 95.25 kg MD Laury Azar Work Phone: [facility] 05-20-2021 15:45-0400 Body height 165.1 cm Sandoval Solano Other [facility] Other 05-20-2021 15:45-0400 Body mass index (BMI) [Ratio] 38.94 kg/m2 Sandoval Solano Other [facility] Other 05-20-2021 15:45-0400 Body temperature 97.9 [degF] Sandoval Solano Other [facility] Other 05-20-2021 15:45-0400 Body weight 106.14 kg Sandoval Solano Other [facility] Other 05-20-2021 15:45-0400 Diastolic blood pressure 85 mm[Hg] Sandoval Solano Other [facility] Other 05-20-2021 15:45-0400 Systolic blood pressure 127 mm[Hg] Sandoval Solano Other [facility] Other Encounters Encounter Date Encounter Type Care [...] Available Start: 09-11-2023 ambulatory ANU WILKERSON [facility] Start: 08-18-2023 ambulatory MICHELLE ANAND [facility] Start: 08-04-2023 End: 08-04-2023 ambulatory CHRIS WHITMORE Not Available Start: 08-01-2023 End: 08-01-2023 ambulatory CONNOR WEBSTER Not Available Start: 07-27-2023 End: 07-27-2023 ambulatory CHRIS WHITMORE Not Available Start: 07-20-2023 End: 07-20-2023 ambulatory CHRISHORACE WHITMORE Not Available Start: 07-18-2023 End: 07-18-2023 ambulatory CONNOR WEBSTER Not Available Start: 07-14-2023 End: 07-14-2023 ambulatory CONNOR WEBSTER Not Available Start: 07-10-2023 End: 07-10-2023 ambulatory [facility] Start: 06-26-2023 End: 06-26-2023 ambulatory LAURY AZAR Not Available Start: 06-21-2023 End: 06-22-2023 ambulatory [facility] Start: 05-29-2023 ambulatory [facility] Start: 01-25-2023 ambulatory Ferkathrin Carlitos DDS [facility] Start: 11-02-2022 End: 11-02-2022 ambulatory Garcia Sanchez Facility:[facility] Start: 11-02-2022 End: 11-02-2022 Admission to same day surgery center MD Laury Azar Work Phone: [facility] Work Phone: Start: 11-02-2022 End: 11-02-2022 ambulatory MD Laury Azar Work Phone: [facility] Work Phone: Start: 07-05-2022 End: 07-05-2022 ambulatory Garcia Sanchez Other [facility] Other Start: 07-05-2022 Telephone encounter Garcia CAPUTO [employer] Body Straightener Start: 12-16-2021 End: 12-17-2021 ambulatory LAURY AZAR Facility:[facility] Start: 10-25-2021 End: 10-30-2021 ambulatory REFERRED SELF Facility:[facility] Start: 05-20-2021 Office outpatient visit 25 minutes Sandoval SILVA Infectious Disease Procedures Date Procedure Procedure Detail Performing Clinician Start: 11-02-2022 Colonoscopy MD Laury resendez Work Phone: Plan of Treatment Date Care Activity Detail Author Start: 11-02-2022 [facility] Payers Date Payer Category Payer Private Health Insurance [id number] 2023 Private Health Insurance 2022 Medicaid [id number] 2022 Self-pay [id number] 1975 Unknown [id number] 2.16.8 40.1.770267.3.579.2.647 1975 Unknown [id number] 2.16.8 40.1.142406.3.579.2.647 1975 Unknown [id number] 2.16. 840.1.671238.3.579.2.196 1975 Unknown [id number] 2.16.84 0.1.651695.3.579.2.9 1975 Unknown [id number] 2.16.84 0.1.555912.3.579.2.1259 1975 Unknown [id number] 2.16.84 0.1.393342.3.579.2.1259 1975 Unknown [id number] 2.16.84 0.1.047988.3.579.2.9 1975 Unknown [id number] 2.16.84 0.1.180069.3.579.2.1259 1975 Unknown [id number] 2.16.84 0.1.030152.3.579.2.1259 1975 Unknown [id number] 2.16.840 .1.773897.3.579.2.1259 1975 Unknown [id number] 2.16.840 .1.333736.3.579.2.1259 1975 Unknown [id number] 2.16.840 .1.184357.3.579.2.1259 1975 Unknown [id number] 2.16.840 .1.887439.3.579.2.1259 1975 Unknown [id number] 2.16.840 .1.598144.3.579.2.1259 1975 Unknown [id number] 2.16.840 .1.197113.3.579.2.9 1975 Unknown [id number] 2.16.840 .1.946291.3.579.2.1259 1975 Unknown [id number] 2.16.840 .1.718742.3.579.2.1259 Unknown [id number] Unknown [facility] [id number] Unknown [id number] 2.16.8 40.1.238724.3.579.2.531 Social History Date Type Detail Facility Unknown if ever smoked [facility] Other Sex Assigned At Sex Assigned At Bir th [facility] Other Start: 11-02-2022 Tobacco smoking status NHIS Never smoked tobacco (finding) 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 Do not wear perfume, make-up, nail macedonian, or lotions on the day of your [...] need to make any changes, please call [phone]. Notify your surgeon if you develop any illness such as a cold, cough, fever, sore throat or vomiting between now and your surgery. Thank you for entrusting us with your care. [facility] Surgical Services Team [facility] 09-11-2023 Note Subjective Chief complaint: Chief Complaint [...] obtained in clinic. 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 No visualized fracture, dislocation, subluxation or osseous lesion. The acetabular labrum or articular cartilage of the femoral head and acetabulum exhibit no chondral or osteochondral defect. On the large [id number] coronal imaging; the pubic symphysis, sacroiliac joints [...] as directe (more content not included)... [facility] 07-10-2023 Note Attestation signed by Anu [...] an additional personal documentation from me. [facility] 05-29-2023 Note Attestation signed by Anu [...] an additional personal documentation from me. [facility] 05-29-2023 Note Subjective Chief complaint: Chief [...] repair Joseph Bouck MD PGY-5 Orthopedic Surgery [facility] [...] draped in the usual sterile fashion. [facility] 11-02-2022 Procedure note [facility] 07-12-2022 Note FINDINGS: Sonographic evaluation of both breasts demonstrates no worrisome cystic or solid mass lesions. Reference is made to the same day mammogram and recent mammogram of July 05, 2022. IMPRESSION: BI-RADS 3- Probably Benign. Short term interval follow up. Recommend follow up bilateral mammography in 6 months. Report reported and signed by Juaquin Bullock on 07/12/2022 1545 [facility] [employer] 05-20-2021 Evaluation note Encounter Date Diagnosis Assessment Notes May, History of MRSA infection (ICD-10 - Z86.14) May, Arthritis of knee (ICD-10 - M17.10) [facility] [employer] Other Evaluation noteNo Information[facility] [employer] Other Evaluation noteNo assessment information available [facility] Work Phone: History and physical note Author Garcia Sanchez [facility] November 02, 2022 9:14am Note Date/Time November 02, 2022 9:1 4am [facility] [address] [place] [address] Gastroenterology H&P Signed Patient: Hilda Mann MR#: [id number] : 1975 Acct:[id number] Age/Sex: 47 / F Adm Date: 3 Loc: Room: Type: [facility] Attending Dr: Garcia Sanchez MD Copies [...] <Electronically signed by Garcia Sanchez MD> 11/02/22913 [facility] Work Phone: History general Narrative - Reported* Type Description Date Medical History MRSA Medical History HTN Surgical History BILATERAL KNEES Surgical History C SECTION Surgical History BILATERAL FEET Surgical History R ELBOW [facility] Other Hospital Discharge instructions Additional Instructions DISCHARGE [...] NOT operate machinery such as power tools, [employer] mowers, snow blowers, sewing machines, etc. for [...] colonoscopy. -Follow up with PCP. -Office number [phone].[facility] Work Phone: Summary Purpose Family History No [...] section and content) DATE CREATED AUTHOR 12/22/2021 [facility] DATE CREATED AUTHOR AUTHOR'S ORGANIZ ATION 11/11/2022 [facility] DATE CREATED AUTHOR AUTHOR'S ORGANIZ ATION 12/27/2022 [facility] dical Specialist DATE CREATED AUTHOR AUTHOR'S ORGANIZ ATION 03/18/2023 [facility] DATE CREATED AUTHOR AUTHOR'S ORGANIZ ATION 11/04/2023 [facility] DATE CREATED AUTHOR AUTHOR'S ORGANIZ ATION 12/25/2023 [facility] DATE CREATED AUTHOR AUTHOR'S ORGANIZ ATION 04/23/2024 [facility] dical Specialists EPIC REASON FOR VISIT [...] BE BASED ON THE PRIMARY CLINICAL RECORDS. [employer] provides no warranty or guarantee of the accuracy or completeness of information in this document.
--- NOTE | 2024-07-18 11:20 | P.CN_ITS ---
Consult Note: HPI Data of Consult Patient: known to practice within the last 3 years Consult date: 08/17/23 Requesting Physician: Yolanda Saenz NP Primary Care Provider: TIMA GUAJARDO Consult Narrative Reason for consult: chronic neck pain Narrative: Hilda Mann a pleasant 48 year old woman presents for evaluation and management of chronic neck pain. continues to engage in provider guided HEP without improvement. reports moderate relief from prior right C2-3 c3-4 facet RFAs and decrease in headaches. With work changes she has stopped taking gabapentin 300mg daily and baclofen and numbness tingling of right arm has worsened. Patient has a hx of thoracic outlet syndrome. Pain today 7/10 in right arm, significant numbness and tingling. Finds mild benefit to ibuprofen. recently underwent cervical MRI with results below. cc:: CC: Yolanda Saenz NP Review of Systems ROS Status of ROS 10 or more systems reviewed and unremark able except as noted in history and below Ears, nose, mouth, and throat Reports: neck pain Musculoskeletal Reports: neck pain PFSH PFSH Medical History Hyperthyroidism ?E05.90 - Thyrotoxicosis, unspecified without thyrotoxic crisis or storm (ICD-10) Asthma ?J45.909 - Unspecified asthma, uncomplicated (ICD-10) Diabetes ?E11.9 - Type 2 diabetes mellitus without complications (ICD-10) High cholesterol ?E78.00 - Pure hypercholesterolemia, unspecified (ICD-10) HTN (hypertension) ?I10 - Essential (primary) hypertension (ICD-10) Left hip pain ?M25.552 - Pain in left hip (ICD-10) Surgical History History of cholecystectomy ?Z90.49 - Acquired absence of other specified parts of digestive tract (ICD- 10) Previous section ?Z98.891 - History of uterine scar from previous surgery (ICD-10) History of fasciotomy ?Z98.890 - Other specified postprocedural states (ICD-10) History of arthroscopy of right shoulder ?Z98.890 - Other specified postprocedural states (ICD-10) History of decompression of ulnar nerve ?Z98.890 - Other specified postprocedural states (ICD-10) S/P carpal tunnel release ?Z98.890 - Other specified postprocedural states (ICD-10) History of total knee arthroplasty ?Z96.659 - Presence of unspecified artificial knee joint (ICD-10) H/O arthroscopy of shoulder ?Z98.890 - Other specified postprocedural states (ICD-10) Meds Home Medications and Allergies Home Medications ?Medication ?Instructions ?Recorded ?Confirmed ?Type atorvastatin 20 mg tablet 20 mg PO DAILY 04/14/23 10/30/23 History budesonide 180 mcg/actuation 1 inh inhalation DAILY 04/14/23 10/30/23 History breath activated powder inhaler (Pulmicort Flexhaler) hydrochlorothiazide 25 mg tablet 25 mg PO DAILY 04/14/23 10/30/23 History losartan 25 mg tablet 50 mg PO DAILY 04/14/23 10/30/23 History metformin 500 mg tablet 500 mg PO DAILY 04/14/23 10/30/23 History venlafaxine 75 mg tablet 75 mg PO DAILY 04/14/23 10/30/23 History methimazole 20 mg tablet 20 mg PO DAILY 04/19/23 10/30/23 History gabapentin 300 mg capsule 300 mg PO DAILY 07/24/23 10/30/23 History medroxyprogesterone 150 mg/mL 300 mg IM .Q3 Months 07/24/23 10/30/23 History intramuscular suspension (Depo-Provera) Allergies Allergy/AdvReac Type Severity Reaction Status Date / Time vancomycin AdvReac flushing, Verified 10/30/23 07:10 itching Exam Constitutional Documenting provider has reviewed patient's vital signs: yes Common normals: no apparent distress, oriented x3, healthy appearing, alert and well nourished General appearance: cooperative [facility] Common normals: normocephalic, hearing grossly normal bilaterally and moist oral mucous membranes Head and scalp: normocephalic Eye Common normals: PERRL Pupil: PERRL Neck & C-Spine Common normals: full ROM General: normal visual inspection Cervical spine: cervical ROM normal, pain with cervical ROM and cervical spine tenderness Other: positive spurlings strength 4/5 in RUE 5/5 in LUE decreased sensation to right C4,5,6 pattern Chest Common normals: inspection of chest normal Respiratory Common normals: normal respiratory effort, no retractions and no use of accessory muscles Neuro Common normals: oriented x3, CN's II-XII intact bilaterally, moves all extremities, no focal motor deficits, no sensory deficits noted and deep tendon reflexes 2+ bilaterally Sensorium/orientation: alert Motor exam: strength 5/5 throughout and no movement abnormalities noted Psych Common normals: mental status grossly normal, thought process normal, cooperative, affect normal, speech normal and activity/motor behavior normal Speech: normal speech Thought process: normal thought process Results Imaging Cervical MRI : Attestation: I have reviewed the pertinent imaging results. Radiologist's impression: C2-C3: No significant disc/facet abnormality, spinal stenosis, or foraminal stenosis. C3-C4: No significant disc/facet abnormality, spinal stenosis, or foraminal stenosis. C4-C5: Moderate right foramen narrowing. Mild disc bulging eccentric to the right the foramen. Uncovertebral joint spurring. No significant central canal or left foramen narrowing. No significant facet arthropathy. C5-C6: Moderate foramen narrowing secondary to uncovertebral joint spurring and mild disc bulging. No significant central canal or left foramen narrowing. C6-C7: Early degenerative disc disease is present without focal protrusion or neural impingement. C7-T1:. Early degenerative disc disease is present without focal protrusion or neural impingement. Additional Findings Additional findings: If on a controlled substance or opioids, I have checked an [place] report on this patient and there are no aberrancies noted in the prescribing history.??If on a controlled substance or opioid a drug screen was completed and reviewed within the last year, and if there has not been a drug screen completed we ordered one today to monitor higher risk, state monitored pain medication use. As part of providing excellent, safe, comprehensive care, the following was completed at our patient's visit: 1. A medication reconciliation and review to ensure accurate knowledge of current/active medications, including asking our patients to inform us about any [id number] medications or herbal remedies/nutritional supplements/alter [place] remedies. 2. A review to specifically ensure our patients have had annual screening for screening for depression, screening for tobacco use, and screening for unhealthy alcohol use. For concerning screenings had a discussion with the patient, provided patient education, and recommended follow-up with primary care provider when appropriate. If patient noted with a risk of falling, they received education on strength, gait, and balance training to prevent future risk of falling. Assessment and Plan Assessment and Plan (1) Cervical radiculopathy: (2) Cervical spinal stenosis: (3) Myofascial pain: (4) Cervical spondylosis: Plan right C4,5,6 TFESI under fluoroscopy, risks vs benefits reviewed continue medications f/u 2 weeks after injection
== END 2024-07-18 10:25 | disposition home or self-care (01) ==
LOC: PM 10:24
PROVIDERS: PCP Family Medicine; Visit Provider Nurse Practitioner
DX: M54.12 Radiculopathy, cervical region (principal); M48.02 Spinal stenosis, cervical region; M79.18 Myalgia, other site; M47.812 Spondylosis without myelopathy or radiculopathy, cervical region
CPT/HCPCS: G0463

== ENCOUNTER 2024-07-29 07:00 | Day surgery (SDC) | payer MEDICAID, SELFPAY ==
--- OUTSIDE RECORDS SUMMARY | 2024-07-29 07:04 | XMS_ITS | CCD ---
Author Organization [facility] Care Team Providers Care Pattern Hanger Name Role Phone CASANDRA LAURY Primary Care [...] sources) Vancomycin Drug Allergy RED MAN SYNDROME [facility] Other (1 source) Vancomycin Drug Allergy 11-03-19 [facility] Repository (1 source) Glycopeptides (Antibiotic); Translations: [VANCOMYCIN ANALOGUES] Propensity to adverse reactions to drug (disorder) 02-08-20 [facility] Repository Medications Current Medications Medication Drug [...] to call back when ready to r/s [facility] 36 Patient needs to can cristofer upcoming surgery. [facility] Orders Onlyon 12-20-2023 Orders Only [id number] MackenzieShell ie 1975 F Date Provider Department Rison 12/20/2023 [id number] [place] Medical C No family history on file [facility] Follow-Upon 09-11-2023 Follow-Up [id number] MackenzieShell ie 1975 F Date Provider Department Rison 09/11/2023 ANU GOTTI MP ORTHO MPORTHO No family history on file Level of Service:62174 GA OFFICE/OUTPATIENT ESTABLISHED MOD MDM 30 MIN Reason for Visit and Comments: Pain [136] [facility] 36on 08-22-2023 36 Appt was scheduled [facility] 36 [facility]5 hour relief from the injection, still had joint popping but no pain. Pains back now so wants to know what she's supposed to do now. [facility] Procedure Visiton 08-18-2023 Procedure Visit [id number] PlantShell ie 1975 F Date Provider Department Center 08/18/2023 MICHELLE CHEEK MP ORTHO MPORTHO No family history on file Level of Service:41598 [place] OFFICE/OUTPATIENT NEW LOW MDM 30 MINUTES (25) Reason for Visit and Comments: Injections [186] [facility] 36on 08-15-2023 36 Called patient to reschedule her appt. Due to being out of office. Offered patient 08/18/2023 [facility] 36on 07-24-2023 36 Lvm that pt does not need a prior auth. She just needs to schedule appt with Dr. Fuentes for injection Normal [facility] Follow-Upon 07-10-2023 Follow-Up [id number] Kellie Mann 1975 F Date Provider Department Rison 07/10/2023 ANU GOTTI MP ORTHO MPORTHO No family history on file Level of Service:22485 GA OFFICE/OUTPATIENT ESTABLISHED LOW MDM 20-29 MIN (GC) Reason for Visit and Comments: Pain [136] Normal [facility] XR CERVICAL SPINE 2-3 VIEWSo n [...] Not Available Office Visiton 05-29-2023 Follow-up visit [id number] Kellie Mann 1975 F Date [facility] 05/29/2023 ANU ERSENDIZ MP ORTHO MPORTHO No family history on file Level of Service:89171 GA OFFICE/OUTPATIENT ESTABLISHED MOD MDM 30-39 MIN (25,GC) Reason for Visit and Comments: Pain [136] Normal [facility] MRI Shoulder w/o Lefton 05 MRI [...] by Stevie Holm on 12/26/2022 1544 Normal [facility] Specialist Glucose Glucometer (dC) [M ass/Vol]Ordered By: Garcia Sanchez on 11-02-2022 Glucose [Mass/Vol] 104 mg/dL [facility] Comment on above: Random Glucose Refer ence Range is dependent on time and content of last meal. Glucose of more than 200 mg/dL in a nonstressed, ambulatory subject supports the diagnosis of Diabetes Mellitus. Glucose Poct Glucometerson 0 11-02-2022 Commemt1 Glu2: Cleaned Meter Normal [facility] Comment on above: Result Comment: PERF ORMED BY: [facility] [address] [place] [address] PATHOLOGIST HEAD BELLHOP CAPTAIN VICENTE SINGH M.D. Performed By: #### G LULS #### Point of Care testing , Glucose [Mass/Vol] 104 mg/dL Normal [facility] Comment on above: Result Comment: [facility] Glucose Reference Range is dependent on time and content of last meal. Glucose of more than 200 mg/dL in a nonstressed, ambulatory subject supports the diagnosis of Diabetes Mellitus. Performed By: #### G LULS #### Point of Care testing , HCG ( test) IA.rapi d Ql (U)Ordered By: Garcia Sanchez on 11-02-2022 HCG ( test) Ql (U) Negative [facility] HCG,Urineon 11-02-2022 Beta HCG ( test) Ql (U) Negative Normal [facility] Comment on above: Result Comment: PERF ORMED BY: [place] [address] PATHOLOGIST HEAD BELLHOP CAPTAIN VICENTE SINGH M.D. Performed By: #### U HCG #### [address] No Panel InformationOrdered By: Garcia Sanchez on 11-02-2022 Bedside Glucose Comment Glu2: cleaned meter [facility] Diagnostic Mammogram, Bilate ral w/Ananth [...] VERY IMPORTANT TO YOUR HEALTH. THE CURRENT [place] [employer] GUIDELINES RECOMMENDS ANNUAL MAMMOGRAPHY BEGINNING AT AGE 40 THIS FACILITY USES A REMINDER SYSTEM TO ENSURE ALL PATIENTS RECEIVE REMINDER NOTIFICATIONS AT THE APPROPRIATE TIME BASED ON THE RECOMMENDATIONS OF THIS EXAM. Report reported and signed by Juaquin Bullock on 07/12/2022 1546 Normal [facility] Cloth Mercerizer Operator US Breast Limited, Lefton US Breast Limited, Left Please see right breast ultrasound report. Report reported and signed by Juaquin Bullock on 07/12/2022 1546 Normal [facility] Specialist SCREENING MAMMOGRAM W/ANANTH, BILATERAL*on 07-05-2022 [...] Visible on only one projection. Asymmetries that line out man to be summation artifact are benign (BI-RADS 2). The BI-RADS [place]o offers guidance regarding the other categories of [...] VERY IMPORTANT TO YOUR HEALTH. THE CURRENT [place] [employer] GUIDELINES RECOMMENDS ANNUAL MAMMOGRAPHY BEGINNING AT AGE 38 THIS FACILITY USES A REMINDER SYSTEM TO ENSURE ALL PATIENTS RECEIVE REMINDER NOTIFICATIONS AT THE APPROPRIATE TIME BASED ON THE RECOMMENDATIONS OF THIS EXAM. Report reported and signed by Juaquin Bullock on 07/05/2022 1525 Normal [facility] Specialist Operative Reporton 2 Operative Report MR#: [id number] S [facility] Pt. Name: Hilda Mann Room #: [...] 2. Decompression of ulnar nerve, left elbow. QUARRY PLANT CRUSHER OPERATOR: Juan Quintanilla M.D. ANESTHESIA: General. INDICATION [...] far as we safely could using an [employer] retractor to expose the proximal end and looked the proximal skin edge. The nerve was then released through the cubital tunnel releasing Magana's ligament and the fascia over the cubital tunnel. The nerve was free distally as the FCU fascias, both superficial and deep were split. Again, we used an [employer] retractor to lift the distal end of [...] Duval M.D. Date Trans: 12/16/2021 06:56 P/arvind [id number] cc: Laury Azar M.D. [address] [place] [id number] Dhruv Paz, DO [facility] Kim Billings P. O. Cam (more content not included)... Normal [facility] POC GLUCOSE LABon 12-16-2021 Glucose [Mass/Vol] 156 mg/dL High 70-100 [facility] Comment on above: Performed By: #### 8 [id number] #### [facility] [address] [place] [address], [facility] POC URINE PREGNANCYon 2021 Beta HCG ( test) Ql (U) Negative Normal NEGATIVE [facility] Comment on above: Performed By: #### 8 [id number] #### [facility] [address] [place] [address], [facility] Vital Signs Date Time Vital Sign Value Performing Clinician Facility 11-02-2022 09:58-0400 Diastolic blood pressure 102 mm[Hg] MD Laury Azar Work Phone: [facility] 11-02-2022 09:58-0400 Heart rate 71 /min MD Laury Azar Work Phone: [facility] 11-02-2022 09:58-0400 Respiratory rate 16 /min MD Laury Azar Work Phone: [facility] 11-02-2022 09:58-0400 SaO2% (BldA) [Mass fraction] 100 % MD Laury Azar Work Phone: [facility] 11-02-2022 09:58-0400 Systolic blood pressure 161 mm[Hg] MD Laury Azar Work Phone: [facility] 11-02-2022 08:27-0400 Body height 165.1 cm MD Laury Azar Work Phone: [facility] 11-02-2022 08:27-0400 Body weight 95.25 kg MD Laury Azar Work Phone: [facility] 05-20-2021 15:45-0400 Body height 165.1 cm Sandoval Solano Other [facility] Other 05-20-2021 15:45-0400 Body mass index (BMI) [Ratio] 38.94 kg/m2 Sandoval Solano Other [facility] Other 05-20-2021 15:45-0400 Body temperature 97.9 [degF] Sandoval Solano Other [facility] Other 05-20-2021 15:45-0400 Body weight 106.14 kg Sandoval Solano Other [facility] Other 05-20-2021 15:45-0400 Diastolic blood pressure 85 mm[Hg] Sandoval Solano Other [facility] Other 05-20-2021 15:45-0400 Systolic blood pressure 127 mm[Hg] Sandoval Solano Other [facility] Other Encounters Encounter Date Encounter Type Care [...] Not Available Start: 09-11-2023 ambulatory ANU WILKERSON [facility] Start: 08-18-2023 ambulatory MICHELLE ANAND [facility] Start: 08-04-2023 End: 08-04-2023 ambulatory CHRIS WHITMORE Not Available Start: 08-01-2023 End: 08-01-2023 ambulatory CONNOR WEBSTER Not Available Start: 07-27-2023 End: 07-27-2023 ambulatory CHRIS WHITMORE Not Available Start: 07-20-2023 End: 07-20-2023 ambulatory CHRISHORACE WHITMORE Not Available Start: 07-18-2023 End: 07-18-2023 ambulatory CONNOR WEBSTER Not Available Start: 07-14-2023 End: 07-14-2023 ambulatory CONNOR WEBSTER Not Available Start: 07-10-2023 End: 07-10-[address] [facility] Start: 06-26-2023 End: 06-26-2023 ambulatory LAURY AZAR Not Available Start: 06-21-2023 End: 06-22-[address] [facility] Start: 05-29-[address] [facility] Start: 01-25-2023 ambulatory Ferkathrin Carlitos DDS [facility] Start: 11-02-2022 End: 11-02-2022 ambulatory Garcia Sanchez Facility:[facility] Start: 11-02-2022 End: 11-02-2022 Admission to same day surgery center MD Laury Azar Work Phone: [facility] Work Phone: Start: 11-02-2022 End: 11-02-2022 ambulatory MD Laury Azar Work Phone: [facility] Work Phone: Start: 07-05-2022 End: 07-05-2022 ambulatory Garcia Sanchez Other [facility] Other Start: 07-05-2022 Telephone encounter Garcia CAPUTO G Dental Front Office Assistant Start: 12-16-2021 End: 12-17-2021 ambulatory LAURY AZAR Facility:[facility] Start: 10-25-2021 End: 10-30-2021 ambulatory REFERRED SELF Facility:[facility] Start: 05-20-2021 Office outpatient visit 25 minutes Sandoval SILVA Infectious Disease Procedures Date Procedure Procedure Detail Performing Clinician Start: 11-02-2022 Colonoscopy MD Laury resendez Work Phone: Plan of Treatment Date Care Activity Detail Author Start: 11-02-2022 [facility] Payers Date Payer Category Payer Private Health Insurance [id number] 2023 Private Health Insurance 2022 Medicaid [id number] 2022 Self-pay [id number] 1975 Unknown [id number] 2.16.8 40.1.029764.3.579.2.647 1975 Unknown [id number] 2.16.8 40.1.801143.3.579.2.647 1975 Unknown [id number] 2.16. 840.1.989911.3.579.2.196 1975 Unknown [id number] 2.16.84 0.1.503259.3.579.2.9 1975 Unknown [id number] 2.16.84 0.1.551869.3.579.2.1259 1975 Unknown [id number] 2.16.84 0.1.866246.3.579.2.1259 1975 Unknown [id number] 2.16.84 0.1.563799.3.579.2.9 1975 Unknown [id number] 2.16.84 0.1.067529.3.579.2.1259 1975 Unknown [id number] 2.16.84 0.1.365647.3.579.2.1259 1975 Unknown [id number] 2.16.840 .1.245067.3.579.2.1259 1975 Unknown [id number] 2.16.840 .1.244342.3.579.2.1259 1975 Unknown [id number] 2.16.840 .1.413391.3.579.2.1259 1975 Unknown [id number] 2.16.840 .1.091724.3.579.2.1259 1975 Unknown [id number] 2.16.840 .1.458443.3.579.2.1259 1975 Unknown [id number] 2.16.840 .1.651165.3.579.2.9 1975 Unknown [id number] 2.16.840 .1.837525.3.579.2.1259 1975 Unknown [id number] 2.16.840 .1.510856.3.579.2.1259 Unknown [id number] Unknown [place] [id number] Unknown [id number] 2.16.8 40.1.996755.3.579.2.531 Social History Date Type Detail Facility Unknown if ever smoked [facility] Other Sex Assigned At Sex Assigned At Bir th [facility] Other Start: 11-02-2022 Tobacco smoking status NHIS Never smoked tobacco (finding) [facility] Start: 1975 Sex Assigned At Female F [facility] Goals Date Patient Goal Desired Activity /State [...] THE FOLLOWING ARE NOT AVAILABLE: 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 Do not wear perfume, make-up, nail puerto rican, or lotions on the day of your [...] need to make any changes, please call [phone]. Notify your surgeon if you develop any illness such as a cold, cough, fever, sore throat or vomiting between now and your surgery. Thank you for entrusting us with your care. [facility] Surgical Services Team [facility] 09-11-2023 Note Subjective Chief complaint: Chief [...] was obtained in clinic. IDA MERRITT MS3 [facility] 08-18-2023 Note Sports Medicine Subj ective [...] pt reports she did not have any manager terminal relief with this Blood thinners: denies Allergy to Anesthetics: denies Hx of Diabetes: Last A1c of 5.7% MRA Arthogram 04/19/23 FINDINGS: Contrast fills the hip joint. No visualized fracture, dislocation, subluxation or osseous lesion. The acetabular labrum or articular cartilage of the femoral head and acetabulum exhibit no chondral or osteochondral defect. On the large [id number] coronal imaging; the pubic symphysis, sacroiliac joints [...] provider as directe (more content not included)... [facility] 07-10-2023 Note Attestation signed by Anu [...] be an additional personal documentation from me. [facility] 05-29-2023 Note Attestation signed by Anu [...] repair Joseph Campoverde MD PGY-5 Orthopedic Surgery [facility] By using the attestations below, [...] be an additional personal documentation from me. [facility] 05-29-2023 Note Subjective Chief complaint: Chief [...] repair Joseph Bouck MD PGY-5 Orthopedic Surgery [facility] By using the attestations below, [...] and draped in the usual sterile fashion. [facility] 11-02-2022 Procedure note [facility] 07-12-2022 Note FINDINGS: Sonographic evaluation of both breasts demonstrates no worrisome cystic or solid mass lesions. Reference is made to the same day mammogram and recent mammogram of July 05, 2022. IMPRESSION: BI-RADS 3- Probably Benign. Short term interval follow up. Recommend follow up bilateral mammography in 6 months. Report reported and signed by Juaquin Bullock on 07/12/2022 1545 [facility] Cloth Mercerizer Operator 05-20-2021 Evaluation note Encounter Date Diagnosis Assessment Notes May, History of MRSA infection (ICD-10 - Z86.14) May, Arthritis of knee (ICD-10 - M17.10) [facility] Other Evaluation [facility]No [facility] Other Evaluation noteNo assessment information available [facility] Work Phone: History and physical note Author Garcia Sanchez [facility] November 02, 2022 9:14am Note Date/Time November 02, 2022 9:1 4am [facility] EN[facility] [address] [place] [address] Gastroenterology H&P Signed Patient: Hilda Mann MR#: [id number] : 1975 Acct:[id number] Age/Sex: 47 / F Adm Date: 3 Loc: Room: Type: [employer] Attending Dr: Garcia Sanchez MD Copies to: [...] by Garcia Sanchez MD> 11/02/22913 [facility] Work Phone: History general Narrative - Reported* Type Description Date Medical History MRSA Medical History HTN Surgical History BILATERAL KNEES Surgical History C SECTION Surgical History BILATERAL FEET Surgical History R ELBOW [facility] Other Hospital Discharge instructions Additional Instructions DISCHARGE [...] NOT operate machinery such as power tools, Solv Staffingn mowers, snow blowers, sewing machines, etc. for [...] colonoscopy. -Follow up with PCP. -Office number [phone].[facility] Work Phone: Summary Purpose Family History [...] section and content) DATE CREATED AUTHOR 12/22/2021 [facility] DATE CREATED AUTHOR AUTHOR'S ORGANIZ ATION 11/11/2022 [facility] DATE CREATED AUTHOR AUTHOR'S ORGANIZ ATION 12/27/2022 [facility] dical Specialist DATE CREATED AUTHOR AUTHOR'S ORGANIZ ATION 03/18/2023 [facility] DATE CREATED AUTHOR AUTHOR'S ORGANIZ ATION 11/04/2023 [facility] DATE CREATED AUTHOR AUTHOR'S ORGANIZ ATION 12/25/2023 [facility] DATE CREATED AUTHOR AUTHOR'S ORGANIZ ATION 04/23/2024 [facility] dical Specialists EPIC REASON FOR VISIT (unrecogniz [...] BE BASED ON THE PRIMARY CLINICAL RECORDS. [employer] provides no warranty or guarantee of the accuracy or completeness of information in this document.
[2024-07-29 07:17] VITALS: BP 160/108; PULSE 74; TEMP 36.8; O2SAT 97
[2024-07-29 07:18] LABS: Glucometer 107 mg/dL (74-106)
[2024-07-29 07:38] VITALS: BP 178/105; PULSE 75; O2SAT 97
[2024-07-29 07:39] VITALS: BP 166/96; PULSE 76; O2SAT 98
[2024-07-29] MEDS: DEXAMETHASONE SOD PHOS 10 MG/ML VIAL INJ (07:42)
[2024-07-29] MEDS: BUPIVACAINE HCL 0.25% PF 25 MG/10 ML VIAL INJ (07:42)
[2024-07-29] MEDS: IOHEXOL 240 MG/ML - 10 ML VIAL 24 MG INJ (07:43)
[2024-07-29] MEDS: LIDOCAINE HCL 2% 400 MG/20 ML MDV 3 ML INJ (07:43)
--- NOTE | 2024-07-29 07:43 | P.ON_ITS ---
Date of procedure: 07/29/24 Pre-op diagnosis: M54.12 Post-op diagnosis: same as pre-op Procedure: Procedure: Right C4-5, 5-6 transforaminal epidural steroid injection Medications: Bupivacaine 0.25% 1cc, lidocaine 2% 1cc, dexamethasone 10mg The patient was seen and examined in the preoperative holding area.? Informed consent was obtained and placed on the chart.? Patient was brought to the medical procedure unit and placed in the prone position where a timeout was completed verifying the correct patient, procedure site, position, and planned special equipment using sterile aseptic technique.? Under direct fluoroscopic visualization a 25-gauge Quincke tipped spinal needle was advanced to the designated neural foramen where contrast dye was injected to show adequate spread.? The needle was inserted at level right C4-5. There was no evidence of vascular or adverse uptake.? Epidural spread was appreciated.? The above- mentioned injectate was then placed in a 1.5 mL aliquot preceded by negative aspiration.? The needle was removed. The needle was inserted and the procedure repeated at level right C5-6.? The surgery site was covered.? Patient was taken to the postprocedural recovery area and monitored for an appropriate length of time before found suitable for discharge in the accompaniment of a responsible adult. Anesthesia: Local Surgeon: Tiffanie Morris Pathology: none sent Condition: stable Disposition: no change
== END 2024-07-29 07:46 | disposition home or self-care (01) ==
LOC: SURGOUT 07:00
PROVIDERS: PCP Family Medicine; Visit Provider Anesthesiology
DX: M54.12 Radiculopathy, cervical region (principal); E11.9 Type 2 diabetes mellitus without complications; Z79.84 Long term (current) use of oral hypoglycemic drugs
CPT/HCPCS: 36415; 64479; 64480; 82948; J0665; J1100; Q9966

== ENCOUNTER 2024-08-28 10:38 | Outpatient (OUT) | payer MEDICAID, SELFPAY ==
--- NOTE | 2024-08-28 10:52 | P.CN_ITS ---
Consult Note: HPI Data of Consult Patient: known to practice within the last 3 years Consult date: 08/17/23 Requesting Physician: Yolanda Saenz NP Primary Care Provider: TIMA GUAJARDO Consult Narrative Reason for consult: chronic neck pain Narrative: Hilda Mann a pleasant 48 year old woman presents for evaluation and management of chronic neck pain. continues to engage in provider guided HEP without improvement. reports moderate relief from prior right C2-3 c3-4 facet RFAs and decrease in headaches. Patient has a hx of thoracic outlet syndrome. Pain today 1/10 in right arm, significant numbness and tingling. Finds mild benefit to ibuprofen, gabapentin 100mg HS and baclofen 5-10mg HS PRN without side effects. recently underwent right C4/5 C5/6 TFESI with 75% improvement ongoing. cc:: CC: Yolanda Saenz NP Review of Systems ROS Status of ROS 10 or more systems reviewed and unremark able except as noted in history and below Musculoskeletal Reports: neck pain PFSH PFSH Medical History Hyperthyroidism ?E05.90 - Thyrotoxicosis, unspecified without thyrotoxic crisis or storm (ICD-10) Asthma ?J45.909 - Unspecified asthma, uncomplicated (ICD-10) Diabetes ?E11.9 - Type 2 diabetes mellitus without complications (ICD-10) High cholesterol ?E78.00 - Pure hypercholesterolemia, unspecified (ICD-10) HTN (hypertension) ?I10 - Essential (primary) hypertension (ICD-10) Left hip pain ?M25.552 - Pain in left hip (ICD-10) Surgical History History of cholecystectomy ?Z90.49 - Acquired absence of other specified parts of digestive tract (ICD- 10) Previous section ?Z98.891 - History of uterine scar from previous surgery (ICD-10) History of fasciotomy ?Z98.890 - Other specified postprocedural states (ICD-10) History of arthroscopy of right shoulder ?Z98.890 - Other specified postprocedural states (ICD-10) History of decompression of ulnar nerve ?Z98.890 - Other specified postprocedural states (ICD-10) S/P carpal tunnel release ?Z98.890 - Other specified postprocedural states (ICD-10) History of total knee arthroplasty ?Z96.659 - Presence of unspecified artificial knee joint (ICD-10) H/O arthroscopy of shoulder ?Z98.890 - Other specified postprocedural states (ICD-10) Meds Home Medications and Allergies Home Medications ?Medication ?Instructions ?Recorded ?Confirmed ?Type atorvastatin 20 mg tablet 20 mg PO DAILY 04/14/23 07/29/24 History budesonide 180 mcg/actuation 1 inh inhalation DAILY 04/14/23 07/29/24 History breath activated powder inhaler (Pulmicort Flexhaler) hydrochlorothiazide 25 mg tablet 25 mg PO DAILY 04/14/23 07/29/24 History losartan 25 mg tablet 50 mg PO DAILY 04/14/23 07/29/24 History metformin 500 mg tablet 500 mg PO DAILY 04/14/23 07/29/24 History venlafaxine 75 mg tablet 75 mg PO DAILY 04/14/23 07/29/24 History methimazole 20 mg tablet 20 mg PO DAILY 04/19/23 07/29/24 History gabapentin 300 mg capsule 300 mg PO DAILY 07/24/23 07/29/24 History medroxyprogesterone 150 mg/mL 300 mg IM .Q3 Months 07/24/23 07/29/24 History intramuscular suspension (Depo-Provera) diazepam 10 mg tablet (Valium) 10 mg PO ONCE #1 tab 07/23/24 07/29/24 Rx Allergies Allergy/AdvReac Type Severity Reaction Status Date / Time vancomycin AdvReac flushing, Verified 07/29/24 07:22 itching Exam Constitutional Documenting provider has reviewed patient's vital signs: yes Common normals: no apparent distress, oriented x3, healthy appearing, alert and well nourished General appearance: cooperative [facility] Common normals: normocephalic, hearing grossly normal bilaterally and moist oral mucous membranes Head and scalp: normocephalic Eye Common normals: PERRL Pupil: PERRL Neck & C-Spine Common normals: full ROM General: normal visual inspection Cervical spine: cervical ROM normal; no pain with cervical ROM and no cervical spine tenderness Other: negative spurlings sensation intact BUE Chest Common normals: inspection of chest normal Respiratory Common normals: normal respiratory effort, no retractions and no use of accessory muscles Neuro Common normals: oriented x3, CN's II-XII intact bilaterally, moves all extremities, no focal motor deficits, no sensory deficits noted and deep tendon reflexes 2+ bilaterally Sensorium/orientation: alert Motor exam: strength 5/5 throughout and no movement abnormalities noted Psych Common normals: mental status grossly normal, thought process normal, cooperative, affect normal, speech normal and activity/motor behavior normal Speech: normal speech Thought process: normal thought process Results Imaging Cervical MRI : Attestation: I have reviewed the pertinent imaging results. Radiologist's impression: C2-C3: No significant disc/facet abnormality, spinal stenosis, or foraminal stenosis. C3-C4: No significant disc/facet abnormality, spinal stenosis, or foraminal stenosis. C4-C5: Moderate right foramen narrowing. Mild disc bulging eccentric to the right the foramen. Uncovertebral joint spurring. No significant central canal or left foramen narrowing. No significant facet arthropathy. C5-C6: Moderate foramen narrowing secondary to uncovertebral joint spurring and mild disc bulging. No significant central canal or left foramen narrowing. C6-C7: Early degenerative disc disease is present without focal protrusion or neural impingement. C7-T1:. Early degenerative disc disease is present without focal protrusion or neural impingement. Additional Findings Additional findings: If on a controlled substance or opioids, I have checked an [place] report on this patient and there are no aberrancies noted in the prescribing history.??If on a controlled substance or opioid a drug screen was completed and reviewed within the last year, and if there has not been a drug screen completed we ordered one today to monitor higher risk, state monitored pain medication use. As part of providing excellent, safe, comprehensive care, the following was completed at our patient's visit: 1. A medication reconciliation and review to ensure accurate knowledge of current/active medications, including asking our patients to inform us about any [id number] medications or herbal remedies/nutritional supplements/alternative remedies. 2. A review to specifically ensure our patients have had annual screening for screening for depression, screening for tobacco use, and screening for unhealthy alcohol use. For concerning screenings had a discussion with the patient, provided patient education, and recommended follow-up with primary care provider when appropriate. If patient noted with a risk of falling, they received education on strength, gait, and balance training to prevent future risk of falling. Assessment and Plan Assessment and Plan (1) Cervical radiculopathy: (2) Cervical spinal stenosis: (3) Myofascial pain: (4) Cervical spondylosis: Plan continue current medications f/u 3 months, sooner if needed
== END 2024-08-28 10:39 | disposition home or self-care (01) ==
LOC: PM 10:38
PROVIDERS: PCP Family Medicine; Visit Provider Nurse Practitioner
DX: M54.12 Radiculopathy, cervical region (principal); M48.02 Spinal stenosis, cervical region; M79.18 Myalgia, other site; M47.812 Spondylosis without myelopathy or radiculopathy, cervical region
CPT/HCPCS: G0463